=== PATIENT | female | born 1955 ===

== ENCOUNTER 2023-12-04 14:26 | Outpatient (AMB) | payer MEDICARE, MEDICAID, SELFPAY ==
--- NOTE | 2023-12-04 14:28 | MHC.PC.OV ---
Vital Signs 12/04/23 14:30 Height 5 ft 8 in Weight 335 lb 8 oz BMI 51.0 BP 116/72 Blood Pressure Location Lt brachial Position Sitting Pulse 93 Pulse Source Pulse Oximeter Pulse Oximetry (%) 97 Oxygen Delivery Method Room Air Intake Visit Reasons: PE Intake Note: Patient is here today for a physical. 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 Accompanied by: Self / Same As Patient Allergies No Known Allergies Allergy (Verified 12/04/23 14:51) Medication List - Last Reconciled 12/05/23 by Isai Zaragoza MD albuterol sulfate 90 mcg/actuation 2 puffs inhalation Q4-6H PRN blood sugar diagnostic (FreeStyle Lite Strips) As directed once a day blood-glucose meter (FreeStyle Lite Meter kit) As directed bupropion HCl SR 100 mg PO BID clonazepam 0.5 mg PO TID PRN 30 days cyclobenzaprine 10 mg PO TID PRN cyclobenzaprine 10 mg PO TID PRN ergocalciferol (vitamin D2) 1,250 mcg PO QWEEK 90 days escitalopram oxalate 10 mg PO DAILY 90 days flaxseed oil 1,000 mg PO DAILY lancets (FreeStyle Lancets) As directed lisinopril-hydrochlorothiazide 20-12.5 mg 1 tab PO DAILY metformin 1,000 mg PO BID multivitamin 1 tab PO DAILY omeprazole 20 mg PO DAILY Pulmicort Flexhaler 180 mcg/actuation (budesonide) 2 inhalations inhalation BID NS simvastatin 20 mg PO DAILY Tobacco use date assessed: 12/04/23 Fall risk assessment: 2 + Falls in past year Last assessed Fall Risk: 12/04/23 Dental Screening Dental Screen Date: 12/04/23 Did you have a dental visit in the last 12 months?: No Did you have a dental problem in the last 6 months where you did not have access to dental care?: No Was dental information given to patient?: Patient has dentist HPI PE HPI Details Patient comes in today for her annual physical examination - she was last seen here in-person back in 2019 States that she continues to struggle with severe anxiety and agoraphobia, which are the main reasons she has not been coming in for her appointments for so long as these get triggered immediately as soon as she leaves her house States that her lower back feels very sore often lately and that she now has persistent numbness in both of her feet, especially over the bottom of her feet - would like to see if she can get Rx again for Cyclobenzaprine Relates that she has taken Cyclobenzaprine a few years ago for her lower back and it helped a lot back then She denies any headaches or dizziness Denies any chest pains; notes that she does feel SOB often, especially with exertion and that her chest feels somewhat tight often No nausea /vomiting, no abdominal pain No change in bowel habits noted She denies any acute urinary symptoms States that she has never had a screening colonoscopy done, by choice She has also not had her mammogram or Pap smear/ gynecology exam done in years - states that she had a complete hysterectomy in her 30s and was advised them that she no longer needs to continue with yearly Pap smears She would also like to get a prescription for a new glucometer so she can monitor her blood sugar closely [facility] Medical History (Updated 12/05/23 @ 05:52 by Isai Zaragoza MD) Asthma Morbid obesity with BMI of 50.0-59.9, adult Morbid obesity with BMI of 45.0-49.9, adult Depression Panic disorder with agoraphobia Seasonal allergic rhinitis due to pollen Vitamin D deficiency GERD without esophagitis Pure hypercholesterolemia Diabetes mellitus Benign essential hypertension Anxiety Surgical History History of total abdominal hysterectomy Family History Father No problems noted. Mother Stroke Social History Housing: Apartment Alcohol intake: never Patient Tobacco Use Status: Former Tobacco user e-Cigarette/Vaping Use: Never Used Second Hand Smoke Exposure: Yes service: No Current occupational status: retired and disabled Cognitive needs: No Hearing needs: No Vision needs: Yes Female Reproductive History Menstrual Menopause type: surgical (had complete hysterectomy in the ) Questionnaire PHQ-9 Over the last 2 weeks, how often have you been bothered by any of the following problems? 1. Little interest or pleasure in doing things: more than half the days 2. Feeling down, depressed, or hopeless: more than half the days 3. Trouble falling or staying asleep, or sleeping too much: nearly every day 4. Feeling tired or having little energy: nearly every day 5. Poor appetite or overeating: more than half the days 6. Feeling bad about yourself - or that you are a failure or have let yourself or your family down: more than half the days 7. Trouble concentrating on things, such as reading the newspaper or watching television: several days 8. Moving or speaking so slowly that other people could have noticed. Or the opposite - being so fidgety or restless that you have been moving around a lot more than usual: several days 9. Thoughts that you would be better off or of hurting yourself in some way: not at all Total score: 16 Depression Screening Interpretation: Positive Depression Screening Follow-up: Existing condition and In treatment Depression Screening Done: Yes 91147 - PHQ-9 Billing: Yes Source: Developed by Drs. Jose C Cabrera, Abida Truong, Bryan Lyons and colleagues, with an educational jami from [employer]. Thrive Questionnaire Date Thrive assessed: 12/04/23 I am a: Patient What is your living situation today?: I have a steady place to live Within the past 12 months, did the food you bought not last and you didn't have the money to get more?: Never true Within the past 12 months, did you worry whether your food would run out before you got money to buy more?: Never true Do you have trouble paying for medicines?: No Do you have trouble getting transportation to medical appointments?: No Do you have trouble paying your heating and electricity bill?: No Do you have trouble taking care of your child, family member or friend?: No Do you have trouble with day-to-day activities such as bathing, preparing meals, shopping, managing finances, etc.?: No Are you currently unemployed and looking for a job?: No Are you interested in more education?: No Please select the resources that you would like help with: None Currently or been in a relationship where the following occur: No concerns reported THRIVE Score: 0 AUDIT C Alcohol Use Questionnaire (AUDIT-C) 1. How often do you have a drink containing alcohol?: Never 3. How often do you have six or more drinks on one occasion?: Never Total Score: 0 Score Reviewed/Action Taken: Yes BERNIE-7 AMB Questionnaire BERNIE-7 Date BERNIE - 7 assessed: 12/04/23 Feeling nervous, anxious, or on edge: 3 = Nearly every day Not being able to stop or control worryin = More than half the days Worrying too much about different things: 2 = More than half the days Trouble relaxin = More than half the days Being so restless that it is hard to sit still: 2 = More than half the days Becoming easily annoyed or irritable: 1 = Several days Feeling afraid as if something awful might happen: 3 = Nearly every day Total BERNIE-7 score (0-4 normal; 5-9 mild; 10-14 moderate; 15-21 severe): 15 Source: Developed by Drs. Jose C Cabrera, Abida Truong, Bryan Lyons and colleagues, with an educational jami from [employer]. BERNIE-7 Assessment Billing BERNIE-7 Assessment Tool: BERNIE-7 Assessment 88541 Review of Systems Const Denies chills, Reports fatigue, Denies fever(s), Denies headache(s) and Denies malaise Eyes Denies blurry vision, Denies change in vision, Denies irritation and Denies itchy eyes ENT Denies dysphagia, Denies dizziness, Denies otalgia, Denies headache(s), Denies nasal congestion, Denies neck pain, Denies odynophagia, Denies sinus pain and Denies sore throat Card Denies chest pain, Denies rapid heart rate, Denies irregular heart rhythm, Denies palpitations and Reports dyspnea on exertion Resp Denies chest congestion (but chest feels tight often lately), Denies cough, Reports dyspnea on exertion and Denies wheezing GI Denies abdominal pain, Denies bloating, Denies constipation, Denies dysphagia, Denies heartburn, Denies diarrhea, Denies nausea, Denies odynophagia and Denies vomiting Denies hematuria, Denies urinary frequency, Denies dysuria, Denies urinary incontinence and Denies urinary urgency Musc Reports back pain (over the lower back - feels very sore lately), Denies arthralgias, Denies joint swelling, Denies muscle weakness, Denies neck pain and Reports numbness (in both feet) Skin/Breast Denies breast pain, Denies breast mass, Denies change in pigmentation, Denies lesions, Denies rash and Denies unusual bruising Neuro Denies dizziness, Denies headache(s), Reports numbness (in both feet) and Denies paresthesias Psych Reports anxiety (severe, with agoraphobia) and Denies depression Endo Reports fatigue and Denies palpitations Bry/Lymph Denies easy bruising Aller/Immun Denies itchy eyes and Denies wheezing Physical exam (Primary Care) Vital Signs: Last Vital Signs Pulse 93 12/04/23 14:30 BP 116/72 12/04/23 14:30 Pulse Ox 97 12/04/23 14:30 Oxygen Delivery Method Room Air 12/04/23 14:30 BMI result Body Mass Index 51.0 Tobacco/Smoking Status: Tobacco use Status Tobacco use date assessed 12/04/23 12/04/23 14:33 Patient Tobacco Use Status Former Tobacco user 12/04/23 14:29 e-Cigarette/Vaping Use Never Used 12/04/23 14:41 PHQ-9: PHQ-9 Score PHQ-9: Total score 16 12/04/23 19:10 Depression Screening Interpretation: Positive Depression Screening Follow-up: Existing condition and In treatment Thrive Assessment: Date of Thrive Assessment Date Thrive assessed 12/04/23 12/04/23 14:41 Currently or been in a relationship where the following occur: No concerns reported Const General: no acute distress, alert and awake Orientation/consciousness: patient oriented x3 HENMT Head: Yes normocephalic and Yes atraumatic Ears: external ears normal, TM's normal bilaterally and EAC's normal General nose exam: No nasal discharge present Face and sinus: Yes normal facial exam and Yes sinuses nontender Teeth and gingiva: dentition normal Throat: Yes posterior oropharynx normal and Yes tonsils normal (no TP congestion) Eyes Eyelids: Yes eyelids normal Conjunctivae: conjunctivae normal Pupils: Equal, round and reactive pupils present EOM: EOMs intact bilaterally Neck Neck: Yes no lymphadenopathy and Yes supple Thyroid: Thyroid normal Resp Auscultation: no crackles, no rales, rhonchi (occasional) throughout, no wheezes and diminished lung sounds (significantly) bilateral Cardio Rate: regular rate Rhythm: regular rhythm Heart sounds: no murmurs GI Palpation (GI): Soft to palpation, nontender and No hepatosplenomegaly present Auscultation: normal bowel sounds General: Yes no CVA tenderness Back/Spine/Pelvis Back: no CVA tenderness Thoracic/Lumbar Spine: lumbar spinal tenderness (mild) Skin Lesions: no lesions Rashes: no rashes Neuro General: patient oriented x3, moves all extremities, no focal motor deficits and CN's II-XI intact bilaterally Cranial nerves: Yes Equal, round and reactive pupils present Cognition (Neuro): normal cognition Gait exam (Neuro): Normal gait present Extrem General: Yes no clubbing, cyanosis or edema Assessment and Plan Assessment & Plan (1) Annual physical exam: Code(s): Z00.00 - Encounter for general adult medical examination without abnormal findings Plan: Check labs She continues to decline referral for screening colonoscopy but is agreeable to getting a Cologuard test done (2) Benign essential hypertension: Code(s): I10 - Essential (primary) hypertension Plan: Reinforced low sodium diet - goal is systolic BP of at least 130 mm or less Continue Lisinopril-HCT 20-12.5 mg QD Patient is reminded to check/monitor her blood pressure at least once a week (3) Pure hypercholesterolemia: Code(s): E78.00 - Pure hypercholesterolemia, unspecified Plan: Patient has not had any follow up labs done in over 4 years now and is advised to get them done DAVID Reinforced low cholesterol diet Continue Simvastatin 20 mg QD (4) Diabetes mellitus: Code(s): E11.9 - Type 2 diabetes mellitus without complications Qualifiers: Diabetes mellitus type: type 2 Diabetes mellitus care home insulin use: without care home use Diabetes mellitus complication status: without complication Qualified Code(s): E11.9 - Type 2 diabetes mellitus without complications Plan: Reinforced diabetic diet In-office HgbA1c was at 7.0% back in January 2019 - goal is <7.0% Continue Metformin 1000 mg BID Will check HgbA1c again with her labs DAVID - advised that it has been OVER FOUR years now since she had labs done and she should try to get them done DAVID (5) GERD without esophagitis: Code(s): K21.9 - Gastro-esophageal reflux disease without esophagitis Plan: Dietary restrictions reinforced Continue Omeprazole 20 mg QD (6) Vitamin D deficiency: Code(s): E55.9 - Vitamin D deficiency, unspecified Plan: Continue Vitamin D2 61892 units once a week Will recheck vitamin D level for follow up (7) Asthma exacerbation: Code(s): J45.901 - Unspecified asthma with (acute) exacerbation Qualifiers: Asthma severity: moderate Asthma persistence: persistent Qualified Code(s): J45.41 - Moderate persistent asthma with (acute) exacerbation Plan: Continue Albuterol HFA 2 inhalations Q 6 hours PRN Will start her additionally on Pulmicort Flexhaler 18 mcg 2 inhalations BID - have advised patient that this should be used twice a day regularly every day (8) Seasonal allergic rhinitis due to pollen: Code(s): J30.1 - Allergic rhinitis due to pollen Plan: Continue Fluticasone 50 mcg nasal spray QD PRN (9) Low back pain: Code(s): M54.50 - Low back pain, unspecified Qualifiers: Chronicity: unspecified Back pain laterality: bilateral Sciatica presence: without sciatica Qualified Code(s): M54.50 - Low back pain, unspecified Plan: This is likely due to musculoskeletal strain Per request, will start her again on Cyclobenzaprine 5 mg TID PRN Advised that if her low back pain persists or gets worse, will consider sending for lumbar spine x-rays for further evaluation (10) Anxiety: Code(s): F41.9 - Anxiety disorder, unspecified Plan: Continue Bupropion SR 100 mg BID and Clonazepam 0.5 mg BID-TID PRN (11) Panic disorder with agoraphobia: Code(s): F40.01 - Agoraphobia with panic disorder Plan: Continue Clonazepam 0.5 mg 2 to 3 times a day as needed (12) Depression: Code(s): F32.9 - Major depressive disorder, single episode, unspecified Qualifiers: Depression Type: major depressive disorder Major depression recurrence: recurrent Active/Remission status: currently active Major depression episode severity: unspecified Qualified Code(s): F33.9 - Major depressive disorder, recurrent, unspecified Plan: Continue Escitalopram 10 mg QD Follow up with therapist/counselor as scheduled - does her sessions online as her therapist is based out in [facility] (13) Morbid obesity with BMI of 50.0-59.9, adult: Code(s): E66.01 - Morbid (severe) obesity due to excess calories; Z68.43 - Body mass index [BMI] 50.0-59.9, adult Plan: Reinforced diet/exercise as tolerated/lose weight (14) Colon cancer screening: Code(s): Z12.11 - Encounter for screening for malignant neoplasm of colon Plan: Patient continues to decline referral for screening colonoscopy - states that she has never had one done in the past, by choice She agrees to at least do Cologuard testing - ordered (15) Breast cancer screening by mammogram: Code(s): Z12.31 - Encounter for screening mammogram for malignant neoplasm of breast Plan: Patient has not had annual mammogram done in years - will send her to resume annual mammographic screening for breast cancer (16) Osteoporosis screening: Code(s): Z13.820 - Encounter for screening for osteoporosis Plan: States that she has not had BMD done for many years - will send her for repeat BMD for osteoporosis screening Plan Follow up in 4 months Orders: Orders MM screening mammo BI 12/04/23 Z12.31 - Encounter for screening mammogram for malignant neoplasm of breast Complete Blood Count Auto Diff 12/04/23 D64.9 - Anemia, unspecified, Z00.00 - Encounter for general adult medical examination without abnormal findings Lipid Panel 12/04/23 E78.00 - Pure hypercholesterolemia, unspecified, Z00.00 - Encounter for general adult medical examination without abnormal findings TSH reflex Free T4 12/04/23 E78.00 - Pure hypercholesterolemia, unspecified, Z00.00 - Encounter for general adult medical examination without abnormal findings Vitamin B12 and Folate 12/04/23 E53.8 - Deficiency of other specified B group vitamins, Z00.00 - Encounter for general adult medical examination without abnormal findings Vitamin D 25-OH Total 12/04/23 E55.9 - Vitamin D deficiency, unspecified, Z00.00 - Encounter for general adult medical examination without abnormal findings XR DEXA axial skeleton 12/04/23 Z78.0 - Asymptomatic menopausal state AMB Hemoglobin A1c 12/04/23 E11.9 - Type 2 diabetes mellitus without complications Comprehensive False Pass. Panel Fast 12/04/23 E78.00 - Pure hypercholesterolemia, unspecified, Z00.00 - Encounter for general adult medical examination without abnormal findings UA CC w/rflx Micro + Cult 12/04/23 R30.0 - Dysuria, Z00.00 - Encounter for general adult medical examination without abnormal findings Microalbumin, Random (w Creat) 12/04/23 E11.9 - Type 2 diabetes mellitus without complications, Z00.00 - Encounter for general adult medical examination without abnormal findings Hemoglobin A1c 12/04/23 E11.9 - Type 2 diabetes mellitus without complications, Z00.00 - Encounter for general adult medical examination without abnormal findings Referrals Cologuard Test Z12.11 - Encounter for screening for malignant neoplasm of colon Medications: New cyclobenzaprine 10 mg PO TID PRN 30 tabs 1RF muscle spasm Pulmicort Flexhaler 180 mcg/actuation (budesonide) 2 inhalations inhalation BID 1 ea 3RF NS blood-glucose meter (FreeStyle Lite Meter kit) As directed 1 ea 0RF E11.9 - Type 2 diabetes mellitus without complications blood sugar diagnostic (FreeStyle Lite Strips) As directed once a day 100 ea 12RF E11.9 - Type 2 diabetes mellitus without complications lancets (FreeStyle Lancets) As directed 100 ea 12RF Review Patient declined Mammogram: 12/04/23 Declined Pap Smear: 12/04/23 (does not need - had complete hysterectomy in the ) Patient declined Colonoscopy: 12/04/23 Coding Level of Care Code Est Pt Prev Care >65y(23410) Diagnoses Annual physical exam Z00.00 Benign essential hypertension I10 Pure hypercholesterolemia E78.00 Type 2 diabetes mellitus without complication, without long-term current use of insulin E11.9 Diabetes mellitus type: type 2 Diabetes mellitus 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 insulin use: without care home use Diabetes mellitus complication status: without complication GERD without esophagitis K21.9 Vitamin D deficiency E55.9 Moderate persistent asthma with exacerbation J45.41 Asthma severity: moderate Asthma persistence: persistent Seasonal allergic rhinitis due to pollen J30.1 Bilateral low back pain without sciatica, unspecified chronicity M54.50 Chronicity: unspecified Back pain laterality: bilateral Sciatica presence: without sciatica Anxiety F41.9 Panic disorder with agoraphobia F40.01 Episode of recurrent major depressive disorder, unspecified depression episode severity F33.9 Depression Type: major depressive disorder Major depression recurrence: recurrent Active/Remission status: currently active Major depression episode severity: unspecified Morbid obesity with BMI of 50.0-59.9, adult E66.01; Z68.43 Colon cancer screening Z12.11 Breast cancer screening by mammogram Z12.31 Osteoporosis screening Z13.820 Additional Codes BERNIE-7 Assessment Billing - BERNIE-7 Assessment Tool: BERNIE-7 Assessment [id number] ([id number])
[2023-12-04 14:30] VITALS: BP 116/72; PULSE 93; O2SAT 97; BMI 51.0
== END 2023-12-04 15:13 | disposition home or self-care (01) ==
PROVIDERS: PCP Internal Medicine; Visit Provider Internal Medicine
DX: Z00.00 Encounter for general adult medical examination without abnormal findings (principal); I10 Essential (primary) hypertension; E78.00 Pure hypercholesterolemia, unspecified; E11.9 Type 2 diabetes mellitus without complications; K21.9 Gastro-esophageal reflux disease without esophagitis; E55.9 Vitamin D deficiency, unspecified; J45.41 Moderate persistent asthma with (acute) exacerbation; J30.1 Allergic rhinitis due to pollen; M54.50 Low back pain, unspecified; F41.9 Anxiety disorder, unspecified; F40.01 Agoraphobia with panic disorder
CPT/HCPCS: 99397

== ENCOUNTER 2023-12-04 15:26 | Outpatient (REF) | payer MEDICARE, MEDICAID, SELFPAY ==
[2023-12-04 15:48] LABS: MANUAL DIFF FLAG NO
[2023-12-04 15:59] LABS: Basophils Percent Auto 0.5 % (0-2); Eosinophils Absolute Auto 0.2 X10*3/uL (0.0-0.4); Eosinophils Percent Auto 1.7 % (0-4); Hematocrit 40.1 % (37.0-47.0); Hemoglobin 12.5 g/dl (12.0-16.0); Imm Gran Abs Auto 0.04 X10*3/uL (0.00-0.03); Imm Gran Pct Auto 0.5 % (0.0-0.4); Lymphocytes Absolute Auto 1.3 X10*3/uL (1.2-4.9); Lymphocytes Percent Auto 14.5 % (20-40); Mean Corpuscular HGB Conc 31.2 g/dl (31.0-35.0); Mean Corpuscular Hemoglobin 27.2 pg (27.0-33.0); Mean Corpuscular Volume 87.2 fL (80.0-98.0); Monocytes Absolute Auto 0.7 X10*3/uL (0.1-1.2); Monocytes Percent Auto 7.7 % (2-11); Neutrophils Absolute Auto 6.5 x10*3/uL (2.0-8.3); Neutrophils Percent Auto 75.1 % (45-73); Platelet Count 289 X10*3/uL (160-400); Red Cell Distribution Width 15.8 % (11.0-16.0); White Blood Count 8.7 X10*3/uL (4.8-10.8)
[2023-12-04 16:00] LABS: Appearance Urine Turbid; Color Urine Yellow; Glucose Urine UA Negative (Negative); Leukocyte Esterase Urine Negative (Negative); Nitrite Urine Negative (Negative); PH 5.5 (5.0-9.0); Specific Gravity - Urine 1.025 (1.005-1.025); Urine Blood Negative (Negative); Urine Ketones Trace mg/dL (Negative); Urine Protein Negative (Neg-Trace)
[2023-12-04 16:09] LABS: Estimated Average Glucose 160 mg/dL; Hemoglobin A1c % 7.2 % (<6.0)
[2023-12-04 16:26] LABS: Creatinine Urine 237.73 mg/dL; Microalbum/Creatinine Ratio Ur 15.5 ug/mg cr (<30)
[2023-12-04 16:33] LABS: Alanine Aminotransferase 15 U/L (0-31); Albumin Level 3.8 g/dL (3.5-5.0); Alkaline Phosphatase 75 U/L (39-117); Anion Gap 15 (12-20); Aspartate Amino Transferase 13 U/L (5-31); Bilirubin Total 0.3 mg/dL (0.0-1.0); Blood Urea Nitrogen 17 mg/dL (9-16); Carbon Dioxide 29 mmol/L (22-29); Chloride 103 mmol/L (96-108); Cholesterol 149 mg/dL (<200); Estimated Glomerular Filt Rate 46; Glucose Fasting 158 mg/dL (60-99); HDL Cholesterol 42 mg/dL (>40); LDL Cholesterol Calculated 74 mg/dL (<100); Sodium 143 mmol/L (135-145); Triglycerides 166 mg/dL (<150)
[2023-12-04 16:49] LABS: TSH reflex Free T4 1.43 uIU/mL (0.32-4.0)
[2023-12-04 17:02] LABS: Folate 10.2 ng/mL (> or = 4.0); Vitamin B12 204 pg/mL (200-900)
== END 2023-12-04 15:27 | disposition home or self-care (01) ==
LOC: HO.LAB 15:26
PROVIDERS: PCP Internal Medicine; Visit Provider Internal Medicine
DX: Z00.00 Encounter for general adult medical examination without abnormal findings (principal); E78.00 Pure hypercholesterolemia, unspecified; E53.8 Deficiency of other specified B group vitamins; R30.0 Dysuria; E11.9 Type 2 diabetes mellitus without complications; D64.9 Anemia, unspecified; E55.9 Vitamin D deficiency, unspecified
CPT/HCPCS: 36415; 80053; 80061; 81003; 82043; 82306; 82570; 82607; 82746; 83036; 84443; 85025

== ENCOUNTER 2024-01-19 11:57 | Inpatient (IN) | payer MEDICARE, MEDICAID, SELFPAY ==
[2024-01-19] VITALS (8 sets, daily range): BP systolic 117–140; BP diastolic 67–83; PULSE 84–102; RESP 18–26; TEMP 36.6–36.8; O2SAT 88–95; BMI 50.3
--- NOTE | ~2024-01-19 | CT_ITS ---
EXAMINATION: CT angio head neck CLINICAL INFORMATION: Left-sided weakness. COMPARISON: CT scan of the head 01/19/2024. TECHNIQUE: Hat Measurer images were obtained. A CT angiogram of the head and neck was performed in the arterial phase after the intravenous administration of 70 mL Omnipaque 350. Delayed postcontrast images of the head were also obtained. 3D images were processed on an independent workstation under concurrent supervision. Arterial stenoses are measured in accordance with NASCET criteria or similar method if applicable. This CT examination was performed using dose optimization techniques as appropriate, including one or more of the following: Automated exposure control, iterative reconstruction, and adjustment of technique factors (mA and/or kVp) according to patient size (this includes techniques or standardized protocols for targeted exams where dose is matched to indication/reason for exam). Fleischner Society criteria for the followup of incidental pulmonary nodules was implemented if appropriate. Total exam dose-length product 1449 mGy-cm FINDINGS: Head: Delayed postcontrast images reveal no abnormal intracranial mass or enhancement. There is no intracranial mass effect or midline shift. Lateral and third ventricles are normal. No hydrocephalus. Castillo-white matter differentiation is otherwise preserved and there is no evidence of acute territorial infarct. The calvarium and skull base are intact. Mastoid air cells and middle ear cavities are well aerated. No active paranasal sinus disease. CT angiogram neck: This component of the examination is limited due to suboptimal bolus timing and the patient's habitus. The aortic arch apex is unremarkable. The origins of the major aortic vessels and common carotid arteries are obscured. There is a retropharyngeal course of both common carotid arteries. There is a partially calcified atheromatous plaque at the right carotid bifurcation. Cervical carotid arteries are grossly patent. The V1 and proximal V2 segments of the vertebral arteries are obscured. Distal V2 segments and V3 segments of the vertebral arteries are widely patent. CT angiogram head: Intracranial internal carotid arteries are patent. The intradural vertebral artery segments and basilar artery are patent. Anterior, middle, and posterior cerebral artery complexes are normal. No intracranial large vessel occlusion. No identifiable aneurysm or high flow vascular lesion. Other: Soft tissues of the neck including the thyroid gland are normal. Grossly no pathologically enlarged cervical lymph nodes. Lung apices are clear. No acute osseous finding. Specifically no worrisome lytic or blastic osseous lesion. CT/CT angio head neck IMPRESSION: This component of the examination is limited due to suboptimal bolus timing and the patient's habitus. The origins of the major aortic vessels and common carotid arteries are obscured. There is a partially calcified atheromatous plaque at the right carotid bifurcation. Cervical carotid arteries are grossly patent. The V1 and proximal V2 segments of the vertebral arteries are obscured. Distal V2 segments and V3 segments of the vertebral arteries are widely patent. No intracranial large vessel occlusion. No evidence of acute territorial infarct or hemorrhage. No abnormal intracranial mass or enhancement. Electronically signed by: Jose C Mccabe MD 01/19/2024 06:00 PM EDT
--- NOTE | ~2024-01-19 | XR_ITS ---
EXAMINATION: XR CHEST CLINICAL INFORMATION: TIA. COMPARISON: None available. TECHNIQUE: Portable AP view of the chest was obtained. FINDINGS: The study is limited by portable technique, suboptimal inspiration, patient body habitus, and overlying leads. Question subtle left basilar focal infiltrate and/or atelectasis, poorly evaluated on the current study. No effusion or pneumothorax is seen. No focal infiltrate is suspected on the right. The cardiac silhouette is suboptimally evaluated. The aorta is mildly atherosclerotic. XR/XR chest 1V IMPRESSION: Findings as above. Electronically signed by: Bairon Dyson MD 01/19/2024 03:16 PM EDT
--- NOTE | ~2024-01-19 | US_ITS ---
EXAMINATION: US TRIPLEX LOWER EXTREMITY, BILATERAL CLINICAL INFORMATION: Swelling and pain COMPARISON: None available. TECHNIQUE: Color-flow triplex imaging with spectral analysis and compression Doppler were performed on the bilateral lower extremities. FINDINGS: Respiratory variation, normal compression and augmented flow are noted throughout the bilateral lower extremities. The visualized common femoral vein, superficial femoral vein, profunda femoral vein, popliteal vein and posterior tibial venous, left midcalf peroneal vein segments show no evidence of deep venous thrombosis bilaterally. The right peroneal vein is not visualized due to significant calf edema Right peroneal vein not visualized There is no Ruiz's cyst. US/US venous duplex LE BI IMPRESSION: No evidence of deep venous thrombosis involving the bilateral lower extremities. Electronically signed by: Justine Vicente MD 01/19/2024 02:28 PM EDT
--- NOTE | ~2024-01-19 | CT_ITS ---
EXAMINATION: CT HEAD WITHOUT CONTRAST CLINICAL INFORMATION: Transient ischemic attack. COMPARISON: No relevant prior imaging. TECHNIQUE: Contiguous axial imaging was performed from the skull base to vertex without intravenous administration of contrast. This CT examination was performed using dose optimization techniques as appropriate, variously including the following: *Automated exposure control *Adjustment of mA and/or kV according to patient size (this includes techniques or standardized protocols for targeted exams where dose is matched to indication/reason for exam; i.e. extremities or head) *Use of iterative reconstruction technique DLP: 634 mGy-cm FINDINGS: There is no acute intracranial hemorrhage or abnormal extra-axial clicks. No intracranial mass effect or midline shift. Lateral and third ventricles are normal. No hydrocephalus. Castillo-white matter differentiation is preserved and there is no evidence of acute territorial infarct. The calvarium and skull base are intact. Mastoid air cells and middle ear cavities are well aerated. No active paranasal sinus disease. CT/CT head/brain wo IV con IMPRESSION: Normal CT scan of the head. No evidence of acute territorial infarct or hemorrhage. Electronically signed by: Jose C Mccabe MD 01/19/2024 02:34 PM EDT
--- NOTE | 2024-01-19 12:36 | ECG_ITS ---
Test Reason : TIA Blood Pressure : / mmHG Vent. Rate : 095 BPM Atrial Rate : 095 BPM P-R Int : 158 ms QRS Dur : 094 ms QT Int : 368 ms P-R-T Axes : 043 015 017 degrees QTc Int : 462 ms Normal sinus rhythm Nonspecific ST and T wave abnormality Abnormal ECG When compared with ECG of 29-OCT-2005 09:46, Nonspecific T wave abnormality, worse in Inferior leads Nonspecific T wave abnormality now evident in Anterolateral leads Referred By: Jean Bhatia Electronically Signed By:AKANKSHA RIZO
--- NOTE | 2024-01-19 12:37 | ED.GENADULT ---
HPI - General Adult General Chief complaint: General Medical Stated complaint: SOB DAYS 92% RA PER EMS Time Seen by Provider: 01/19/24 12:35 Source: patient and EMS Mode of arrival: EMS Limitations: no limitations History of Present Illness ED Provider: DR. Bhatia HPI narrative: 68-year-old female brought in by ambulance for multiple complaints. Patient normally lives home with her son fairly active and functional at home, around 10:00 patient walked to the bathroom could not feel her left side and fell down because of weakness on the left lower extremity hurting her right knee, patient stated that also her speech was funny this morning, in about 30 minute patient started to feel back to her normal and able to feel her left side, and her speech improved. Also noticed her right lower extremity is swollen and tender, patient has cat scratch on her right leg. Recently patient diagnosed with asthma by her PCP and had some wheezing and difficulty breathing in the morning that she is feeling better now patient declined using supplemental oxygen, no coughing, no fever, no chills. Related Data Home Medications ?Medication ?Instructions ?Recorded ?Confirmed cyclobenzaprine 10 mg tablet 10 mg PO TID PRN muscle spasm 02/26/20 12/04/23 flaxseed oil 1,000 mg capsule 1,000 mg PO DAILY 02/26/20 12/04/23 multivitamin 1 tab PO DAILY 02/26/20 12/04/23 Previous Rx's ?Medication ?Instructions ?Recorded lisinopril 20 1 tab PO DAILY #90 tabs 09/10/23 mg-hydrochlorothiazide 12.5 mg tablet simvastatin 20 mg tablet 20 mg PO DAILY #90 tabs 09/10/23 albuterol sulfate 90 mcg/actuation 2 puff inhalation Q4-6H PRN for 10/15/23 aerosol inhaler dyspnea #8.5 grams Pulmicort Flexhaler 180 2 inh inhalation BID #1 ea 12/04/23 mcg/actuation breath activated (budesonide) blood sugar diagnostic (FreeStyle #100 ea 12/04/23 Lite Strips) blood-glucose meter (FreeStyle #1 ea 12/04/23 Lite Meter kit) cyclobenzaprine 10 mg tablet 10 mg PO TID PRN muscle spasm #30 12/04/23 tabs lancets 28 gauge (FreeStyle #100 ea 12/04/23 Lancets) bupropion HCl 100 mg tablet,12 hr 100 mg PO BID #60 caps 12/06/23 sustained-release ergocalciferol (vitamin D2) 1,250 1,250 mcg PO QWEEK 90 days #13 caps 12/06/23 mcg (50,000 unit) capsule escitalopram oxalate 10 mg tablet 10 mg PO DAILY 90 days #90 tabs 12/06/23 metformin 1,000 mg tablet 1,000 mg PO BID #60 tabs 12/06/23 omeprazole 20 mg capsule,delayed 20 mg PO DAILY #30 caps 12/06/23 release clonazepam 0.5 mg tablet 0.5 mg PO TID PRN anxiety 30 days 01/11/24 #90 tabs Allergies Allergy/AdvReac Type Severity Reaction Status Date / Time No Known Allergies Allergy Verified 01/19/24 12:16 Review of Systems Review of Systems: All other systems are reviewed and are negative Constitutional: Reports as per HPI and Reports no additional constitutional complaints Eyes: Reports as per HPI and Reports no additional eye complaints Reports system reviewed and no additional complaints, except as documented Cardiovascular: Reports as per HPI and Reports no additional cardiovascular complaints Respiratory: Reports as per HPI and Reports no additional respiratory complaints Gastrointestinal: Reports as per HPI and Reports no additional gastrointestinal complaints Genitourinary: Reports no additional female genitourinary complaints Musculoskeletal: Reports no additional musculoskeletal complaints Skin/Breast: Reports system reviewed and no additional complaints, except as docu Psychiatric: Reports no additional psychiatric complaints Endocrine: Reports no additional endocrine complaints Hematologic/Lymphatic: Reports no additional hematologic/lymphatic complaints Allergic/Immunologic: Reports no additional allergic/immunologic complaints Reports system reviewed and no additional complaints, except as documented and Reports Abnormal speech present [facility] Past Medical History Medical History Asthma Morbid obesity with BMI of 50.0-59.9, adult Morbid obesity with BMI of 45.0-49.9, adult Depression Panic disorder with agoraphobia Seasonal allergic rhinitis due to pollen Vitamin D deficiency GERD without esophagitis Pure hypercholesterolemia Diabetes mellitus Benign essential hypertension Anxiety Surgical History History of total abdominal hysterectomy Family History Family History Father No problems noted. Mother Stroke Social History Social History Housing: Apartment Alcohol intake: never Patient Tobacco Use Status: Former Tobacco user e-Cigarette/Vaping Use: Never Used Second Hand Smoke Exposure: Yes Advance Directives: No Advance Directives Information Provided: No service: No Current occupational status: retired and disabled Cognitive needs: No Hearing needs: No Vision needs: Yes Physical Exam ED Vital Signs: Vital Signs - 24 hr 01/19/24 12:10 01/19/24 13:24 01/19/24 14:17 Pulse Rate 102 H 84 Respiratory Rate 26 H 18 Blood Pressure 140/71 H 122/75 Pulse Oximetry 89 L 01/19/24 14:19 Pulse Rate 90 Respiratory Rate Blood Pressure 122/75 Pulse Oximetry BMI result Body Mass Index 50.3 Vital signs have been reviewed and appear to be correct. Blood pressure elevated. Heart rate normal. Respiratory rate normal. Temperature normal. Oxygen saturation normal. Appearance: Alert. Oriented X3. No acute distress. Head: Normal external exam. Normocephalic. Atraumatic. No Stanford signs noted. No raccoon eyes noted Eyes: PERRLA. EOMI. Conjunctiva and sclera normal. Eyelids normal. ENT: TM's Normal. Pharynx normal. Uvula midline. Moist mucous membranes. No trismus noted. No drooling noted. No muffled voice noted. Neck: Normal inspection. Neck supple. FROM. No adenopathy. Thyroid Normal. No meningeal signs. No neck mass noted. CVS: Normal heart rate and rhythm. Heart sound normal. No murmurs noted. Pulses normal throughout. Respiratory: No respiratory distress. Painless inspiration. Breath sounds normal. No wheezes/rales/rhonchi noted. Chest nontender. No accessory muscle usage noted or decreased air movement noted. Abdomen: Soft and nontender. Bowel sounds normal in all 4 quadrants. No distention noted. No organomegaly noted. No visible injury noted. Back: No CVA tenderness. Full range of motion noted. Skin: Skin warm and dry. Normal skin color. Normal skin turgor. No rashes/lesions/lacerations noted. Extremities: No lower extremity edema. Extremities exhibit normal range of motion. Extremities nontender. Neuro: Oriented X 3. Cranial nerve exam: II-XII are grossly intact No motor deficit. No sensory deficit. Reflexes normal. NIH Stroke Scale Time: 12:48 Level of Consciousness: Alert Level of Consciousness Questions: Answers both questions correctly Level of Consciousness Commands: Performs both tasks correctly Best Gaze: Normal Visual: No visual loss Facial Palsy: Normal Motor Arm (Right): No drift Motor Arm (Left): No drift Motor Leg (Right): No drift Motor Leg (Left): No drift Limb Ataxia: Absent Sensory: Normal Best Language: No aphasia Dysarthia: Normal Extinction and Inattention: No abnormality Score: 0 Course Reevaluation(s) Reevaluation #1: 68-year-old female came in with multiple complaints. 1. Left side body weakness has improved possible TIA negative CT and unremarkable head CT with NIH score is 0. 2. Right lower extremity cellulitis / scratch Cat disease will start on Zosyn. 3. Initial hypoxia that improved with 2 L of nasal cannula, bronchodilator, Solu-Medrol. 4. Elevated troponin with no delta change or EKG changed, patient has no chest pain. 5. Lactic acidosis secondary to congestive heart failure /asthma exacerbation and chronic hypoxia, is not due to sepsis. 6. CHF managed with Lasix diuresis and nitro paste. Time: 12:46 Medications Administered Discontinued Medications Generic Name Dose Route Start Last Admin Trade Name Freq PRN Reason Stop Dose Admin Albuterol/Ipratropium 3 ml 01/19/24 13:13 01/19/24 13:24 Albuterol/Iprat 2.5/0.5mg 3 Ml Ampul.Neb INHALE 01/19/24 13:14 3 ml ONCE ONE Administration Furosemide 60 mg 01/19/24 14:04 01/19/24 14:17 Furosemide 100 Mg/10 Ml Vial IVPUSH 01/19/24 14:05 60 mg ONCE ONE Administration Protocol Sodium Chloride 1,000 mls @ 999 mls/hr 01/19/24 12:35 01/19/24 14:23 Ns IV 01/19/24 13:35 Not Given .Q1H1M ONE Piperacillin Sod/Tazobactam 100 mls @ 200 mls/hr 01/19/24 12:40 01/19/24 14:28 Sod 4.5 gm/ Sodium Chloride IV 01/19/24 13:09 200 mls/hr ONCE ONE Administration Methylprednisolone Sodium Succinate 125 mg 01/19/24 12:40 01/19/24 14:13 Methylprednisolone Sod Succ 125 Mg/2 Ml Vial IVPUSH 01/19/24 12:41 125 mg ONCE ONE Administration Nitroglycerin 1 inch 01/19/24 14:04 01/19/24 14:19 Nitroglycerin 2 % Oint 1 Gm Packet TRANSDERMA 01/19/24 14:05 1 inch ONCE ONE Administration Medical Decision Making Differential Diagnosis Differential Diagnoses: The differential diagnosis associated with the presentation includes ( TIA, ischemic stroke, hemorrhagic stroke, DVT of right lower extremity, cellulitis right lower extremity, asthma exacerbation, pneumonia, pneumothorax, CHF, ACS.) Admission/Observation Consideration of admission/observation: Escalation of care including admission/observation considered Consult Healthcare Provider Management of the patient was discussed with: Hospitalist ( Dr. Kyle) Lab Data MDM Lab Attestation statement: I reviewed the patient's lab results. 01/19/24 13:01 01/19/24 13:01 Labs: Lab Results 01/19/24 01/19/24 01/19/24 Range/Units 12:53 13:01 13:02 WBC 9.5 (4.8-10.8) X10*3/uL RBC 4.08 L (4.20-5.50) X10*6/uL Hgb 11.1 L (12.0-16.0) g/dl Hct 36.0 L (37.0-47.0) % MCV 88.2 (80.0-98.0) fL MCH 27.2 (27.0-33.0) pg MCHC 30.8 L (31.0-35.0) g/dl RDW 15.8 (11.0-16.0) % Plt Count 259 (160-400) X10*3/uL MPV 10.8 (9.4-12.3) fL Immature Gran % (Auto) 0.5 H (0.0-0.4) % Neut % (Auto) 82.1 H (45-73) % Lymph % (Auto) 9.5 L (20-40) % Long % (Auto) 6.8 (2-11) % Eos % (Auto) 0.7 (0-4) % Baso % (Auto) 0.4 (0-2) % Lymph # (Auto) 0.9 L (1.2-4.9) X10*3/uL Long # (Auto) 0.6 (0.1-1.2) X10*3/uL Eos # (Auto) 0.1 (0.0-0.4) X10*3/uL Baso # (Auto) 0.0 (0.0-0.2) X10*3/uL Abs Immat Gran (auto) 0.05 H (0.00-0.03) X10*3/uL Absolute Neuts (auto) 7.8 (2.0-8.3) x10*3/uL Absolute Nucleated RBC 0.000 (0.0-0.012) X10*3/uL Nucleated RBC % (auto) 0.0 (0.0-0.2) /100WBC PT 12.8 H (10.9-12.4) SEC INR 1.1 (0.9-1.1) Sodium 141 (135-145) mmol/L Potassium 4.0 (3.3-5.1) mmol/L Chloride 107 (96-108) mmol/L Carbon Dioxide 24 (22-29) mmol/L Anion Gap 14 (12-20) BUN 29 H (9-16) mg/dL Creatinine 1.29 (0.5-1.4) mg/dL Estim Creat Clear Calc 70.9 Estimated GFR 41 Random Glucose 189 H (60-115) mg/dL Lactic Acid 2.4 H* (0.5-2.0) mmol/L Calcium 9.1 D (8.4-10.2) mg/dL Total Bilirubin 0.4 (0.0-1.0) mg/dL Direct Bilirubin 0.2 (0.0-0.5) mg/dL AST 20 (5-31) U/L ALT 28 (0-31) U/L Alkaline Phosphatase 64 (39-117) U/L Troponin I High Sens 189.6 H* (<3.5-17.0) ng/L B-Natriuretic Peptide (<100) pg/mL Total Protein 6.3 L (6.5-8.0) g/dL Albumin 3.5 (3.5-5.0) g/dL Lipase 32 (8-78) U/L Influenza Type A (PCR) NEGATIVE (Negative) Influenza Type B (PCR) NEGATIVE (Negative) RSV RNA Qual (PCR) NEGATIVE (Negative) SARS-CoV-2 RNA (RT-PCR) NEGATIVE (Negative) 01/19/24 01/19/24 Range/Units 13:04 14:28 WBC (4.8-10.8) X10*3/uL RBC (4.20-5.50) X10*6/uL Hgb (12.0-16.0) g/dl Hct (37.0-47.0) % MCV (80.0-98.0) fL MCH (27.0-33.0) pg MCHC (31.0-35.0) g/dl RDW (11.0-16.0) % Plt Count (160-400) X10*3/uL MPV (9.4-12.3) fL Immature Gran % (Auto) (0.0-0.4) % Neut % (Auto) (45-73) % Lymph % (Auto) (20-40) % Long % (Auto) (2-11) % Eos % (Auto) (0-4) % Baso % (Auto) (0-2) % Lymph # (Auto) (1.2-4.9) X10*3/uL Long # (Auto) (0.1-1.2) X10*3/uL Eos # (Auto) (0.0-0.4) X10*3/uL Baso # (Auto) (0.0-0.2) X10*3/uL Abs Immat Gran (auto) (0.00-0.03) X10*3/uL Absolute Neuts (auto) (2.0-8.3) x10*3/uL Absolute Nucleated RBC (0.0-0.012) X10*3/uL Nucleated RBC % (auto) (0.0-0.2) /100WBC PT (10.9-12.4) SEC INR (0.9-1.1) Sodium (135-145) mmol/L Potassium (3.3-5.1) mmol/L Chloride (96-108) mmol/L Carbon Dioxide (22-29) mmol/L Anion Gap (12-20) BUN (9-16) mg/dL Creatinine (0.5-1.4) mg/dL Estim Creat Clear Calc Estimated GFR Random Glucose (60-115) mg/dL Lactic Acid (0.5-2.0) mmol/L Calcium (8.4-10.2) mg/dL Total Bilirubin (0.0-1.0) mg/dL Direct Bilirubin (0.0-0.5) mg/dL AST (5-31) U/L ALT (0-31) U/L Alkaline Phosphatase (39-117) U/L Troponin I High Sens 206.0 H* (<3.5-17.0) ng/L B-Natriuretic Peptide 1608 H (<100) pg/mL Total Protein (6.5-8.0) g/dL Albumin (3.5-5.0) g/dL Lipase (8-78) U/L Influenza Type A (PCR) (Negative) Influenza Type B (PCR) (Negative) RSV RNA Qual (PCR) (Negative) SARS-CoV-2 RNA (RT-PCR) (Negative) Independent Interpretation I performed an independent interpretation of an: Plain X-Ray and CT Scan Radiology Impression Discussion of test interpretation with radiology: I have reviewed the radiologist's reading. Critical Care Time Critical Care Time Critical Care Time: Yes Total Critical Care Time: 60 Attestation: The patient was critically ill with a high probability of imminent or life-threatening deterioration. I spent greater than 30 minutes of discontinuous time evaluating the patient, delivering critical care at the bedside, discussing evaluating data with consultants. Critical care time does not include time spent performing separately billable procedures or teaching. Time spent performing critical care was 60 minutes. Discharge Plan Discharge Clinical Impression: Brain TIA, Asthma exacerbation, Cellulitis of leg, right, CHF (congestive heart failure), Elevated troponin Patient Disposition: Admitted As Inpatient Print Language: Portuguese
[2024-01-19 13:09] LABS: MANUAL DIFF FLAG NO
[2024-01-19 13:16] LABS: Basophils Percent Auto 0.4 % (0-2); Eosinophils Absolute Auto 0.1 X10*3/uL (0.0-0.4); Eosinophils Percent Auto 0.7 % (0-4); Hemoglobin 11.1 g/dl (12.0-16.0); Imm Gran Abs Auto 0.05 X10*3/uL (0.00-0.03); Imm Gran Pct Auto 0.5 % (0.0-0.4); Lymphocytes Absolute Auto 0.9 X10*3/uL (1.2-4.9); Lymphocytes Percent Auto 9.5 % (20-40); Mean Corpuscular HGB Conc 30.8 g/dl (31.0-35.0); Mean Corpuscular Hemoglobin 27.2 pg (27.0-33.0); Mean Corpuscular Volume 88.2 fL (80.0-98.0); Mean Platelet Volume 10.8 fL (9.4-12.3); Monocytes Absolute Auto 0.6 X10*3/uL (0.1-1.2); Monocytes Percent Auto 6.8 % (2-11); Neutrophils Absolute Auto 7.8 x10*3/uL (2.0-8.3); Neutrophils Percent Auto 82.1 % (45-73); Platelet Count 259 X10*3/uL (160-400); Red Blood Count 4.08 X10*6/uL (4.20-5.50); Red Cell Distribution Width 15.8 % (11.0-16.0); White Blood Count 9.5 X10*3/uL (4.8-10.8)
[2024-01-19] MEDS: Albuterol/Iprat 2.5/0.5MG 3 ML AMPUL.NEB INHALE (13:24)
[2024-01-19 13:25] LABS: INTERNATIONAL NORM RATIO 1.1 (0.9-1.1); Prothrombin Time 12.8 SEC (10.9-12.4)
[2024-01-19 13:27] LABS: Lactic Acid 2.4 mmol/L (0.5-2.0)
[2024-01-19 13:30] LABS: Alanine Aminotransferase 28 U/L (0-31); Albumin Level 3.5 g/dL (3.5-5.0); Alkaline Phosphatase 64 U/L (39-117); Anion Gap 14 (12-20); Aspartate Amino Transferase 20 U/L (5-31); Bilirubin Direct 0.2 mg/dL (0.0-0.5); Bilirubin Total 0.4 mg/dL (0.0-1.0); Blood Urea Nitrogen 29 mg/dL (9-16); Calcium 9.1 mg/dL (8.4-10.2); Carbon Dioxide 24 mmol/L (22-29); Chloride 107 mmol/L (96-108); Creatinine Clr Calc Pharmacy 70.9; Estimated Glomerular Filt Rate 41; Glucose Random 189 mg/dL (60-115); Lipase 32 U/L (8-78); Sodium 141 mmol/L (135-145); Total Protein 6.3 g/dL (6.5-8.0)
[2024-01-19 13:36] LABS: B Type Natriuretic Peptide 1608 pg/mL (<100)
[2024-01-19 13:47] LABS: Influenza A PCR NEGATIVE (Negative); Influenza B PCR NEGATIVE (Negative); Resp Syncy Virus RNA Qual PCR NEGATIVE (Negative); SARS COV2 PCR INHOUSE NEGATIVE (Negative)
[2024-01-19 13:48] LABS: Troponin-I High Sensitivity 189.6 ng/L (<3.5-17.0)
[2024-01-19] MEDS: methylPREDNISolone Sod Succ 125 MG/2 ML VIAL IVPUSH (14:13)
[2024-01-19] MEDS: Furosemide 100 MG/10 ML VIAL 60 MG IVPUSH (14:17)
[2024-01-19] MEDS: Nitroglycerin 2 % Oint 1 GM Packet 1 INCH TRANSDERMA (14:19)
[2024-01-19] MEDS: Piperacillin Sodium/Tazobactam 4.5 GM in 0.9 % Sodium Chloride 100 ML IV (14:28)
[2024-01-19 15:08] LABS: Reflex Lactate? Lactic Acid Added
[2024-01-19 15:42] LABS: ~Lactic Acid-LAB USE ONLY 4.1 mmol/L (0.5-2.0)
--- NOTE | 2024-01-19 16:40 | W.MHC.F2F ---
Service Date Service Date: 01/19/24 Reasons for Services Homebound: Leaving the home is medically contraindicated at this time without the asist of a device and/or another person due th the listed conditions above and below. Certification: Based on the above findings, I certify that this patient is confined to the home and needs intermittent shelter care, physical therapy and/or speech therapy, or continues to need occupational therapy. The patient is under my care, and I have initiated the establishment of the plan of care. The patient will be followed by a physician who will periodically review the plan of care. Time Spent With Patient Time: Total time managing care of this patient today ____ minutes.
--- NOTE | 2024-01-19 16:51 | P.HPHOSP_ITS ---
History of Present Illness Date of Service: 01/19/24 Chief Complaint: Left-sided weakness 68-year-old female patient of Dr. Zaragoza with past medical history significant for diabetes mellitus, hyperlipidemia, hypertension, depression/anxiety recently diagnosed to have asthma presented to [facility] with left-sided weakness as per patient she woke up at 10 a.m. feeling left-sided weakness had difficulty walking to the bathroom and fell onto the toilet seat, son helped her back to bed , patient also felt that words were sounding different but had no word- finding difficulty, or aphasia and subsequently brought her to ED for evaluation In the emergency room patient denies any headache, no dizziness complained of shortness of breath on and off since November after her dad which was a traumatic event for patient she was seen by her PCP and was diagnosed to have asthma placed on Pulmicort and rescue inhaler , denies recent weight gain, has lost 25 lb, not on home oxygen, c/o shortness of breath with activity get better with rest, denies associated chest pain, no cough she also complained of right lower extremity swelling of several weeks noticed multiple scratching by cat , denies associated fevers, no chills, denies history of smoking, no alcohol use, denies urinary symptoms of urgency frequency workup in the emergency room showed chest x-ray with no acute abnormality showed question subtle left basilar focal infiltrate and or atelectasis , CT head showed no acute abnormality, bilateral lower extremity Doppler study showed no DVT, troponin 189 repeat 2 6, lactic acid 2.4, normal electrolytes and renal function, blood sugar 189, BNP 1608 blood cultures x2 are pending, patient treated in the emergency room with IV Solu Medrol, IV Zosyn, Augmentin, IV Lasix 60 mg, and nitro paste once patient is now being admitted to [facility] due to left-sided weakness, right lower extremity cellulitis elevated BNP for further cardiac and neurological workup and IV antibiotics. Review of Systems 2 Review of Systems: General no headache no dizziness, no fever chills, feels exhausted. CVS no chest pain, no palpitation. Respiratory no cough , shortness of breath times several weeks Gastrointestinal no nausea, no vomiting, no abdominal pain Musculoskeletal right lower extremity swelling and redness Skin no rash Neuro left-sided weakness left upper extremity greater than lower extremity All other system reviewed and are negative [facility] Medical History Asthma Morbid obesity with BMI of 50.0-59.9, adult Morbid obesity with BMI of 45.0-49.9, adult Depression Panic disorder with agoraphobia Seasonal allergic rhinitis due to pollen Vitamin D deficiency GERD without esophagitis Pure hypercholesterolemia Diabetes mellitus Benign essential hypertension Anxiety Family History Father No problems noted. Mother Stroke Surgical History History of total abdominal hysterectomy Social History Housing: Apartment Alcohol intake: never Patient Tobacco Use Status: Former Tobacco user Smoked in Last 30 Days: No e-Cigarette/Vaping Use: Never Used Second Hand Smoke Exposure: Yes Use of substances other than those prescribed or required for medical reasons: No Advance Directives: No Advance Directives Information Provided: No Do you have a plan to hurt others: No Plan service: No Current occupational status: retired and disabled Cognitive needs: No Hearing needs: No Vision needs: Yes Meds Allergies Allergy/AdvReac Type Severity Reaction Status Date / Time No Known Allergies Allergy Verified 01/19/24 12:16 Active Medications: Current Medications Acetaminophen (Acetaminophen 325 Mg Tablet) 650 mg PO Q6H PRN PRN Reason: Pain, Mild (Pain Scale 1-3), fever or headache Aspirin (Aspirin Enteric Coated 325 Mg Tablet.Dr) 325 mg PO ONCE ONE Stop: 01/19/24 16:48 Atorvastatin Calcium (Atorvastatin Calcium 80 Mg Tablet) 80 mg PO DAILY HERNANDO Benzonatate (Benzonatate 100 Mg Capsule) 100 mg PO TID PRN PRN Reason: Cough Calcium Carbonate (Calcium Carbonate 750 Mg Tab.Chew) 750 mg PO Q4H PRN PRN Reason: Heartburn Enoxaparin Sodium (Enoxaparin Sodium 40 Mg/0.4 Ml Syringe) 40 mg SUBCUT Q24H HERNANDO Magnesium Hydroxide (Milk Of Magnesia 30 Ml Oral.Susp) 30 ml PO DAILY PRN PRN Reason: Constipation Melatonin (Melatonin 3 Mg Tablet) 6 mg PO BEDTIME PRN PRN Reason: Insomnia Ondansetron HCl (Ondansetron Hcl 4 Mg/2 Ml Vial) 4 mg IVPUSH Q8H PRN PRN Reason: Nausea and Vomiting Polyethylene Glycol (Polyethylene Glycol 3350 17 Gm Powd.Pack) 17 gm PO DAILY PRN PRN Reason: Constipation Sodium Chloride (0.9 % Sodium Chloride Flush 3 Ml Syringe) 3 ml IVFLUSH QSHIFT [facility] Home Medications ?Medication ?Instructions ?Recorded ?Confirmed ?Last Taken ?Type multivitamin 1 tab PO DAILY 02/26/20 01/19/24 01/19/24 09:00 History albuterol sulfate 90 mcg/actuation 2 puff inhalation Q6H PRN for 01/19/24 01/19/24 Unknown History aerosol inhaler dyspnea ergocalciferol (vitamin D2) 1,250 1,250 mcg PO GARDNER@0901/19/24 01/19/24 01/19/24 09:00 History mcg (50,000 unit) capsule omeprazole 20 mg capsule,delayed 20 mg PO DAILY@0630 01/19/24 01/19/24 01/19/24 09:00 History release simvastatin 20 mg tablet 20 mg PO BEDTIME 01/19/24 01/19/24 Unknown History Physical Exam 2 Vital Signs and Narrative: Vital Signs: Last Vital Signs Temp 97.9 F 01/19/24 16:24 Pulse 92 01/19/24 16:24 Resp 26 H 01/19/24 16:24 BP 122/70 01/19/24 16:24 Pulse Ox 95 01/19/24 16:24 O2 Del Method Nasal Cannula 01/19/24 16:24 O2 Flow Rate 2 01/19/24 16:24 BMI result Body Mass Index 50.3 Const: Other: General morbidly obese female, awake alert x3 , tachypneic, in no acute distress. Anicteric sclera Neck no JVD. CVS regular rate rhythm, Respiratory lungs clear to auscultation, no respiratory distress, no wheeze, no crackles. Gastrointestinal abdomen obese, non tender, bowel sounds audible, midline scar below umbilicus, no guarding , no rigidity. Extremities right lower extremity pitting edema, erythema, few abrasions, no open wounds Neuro speech clear/horse, face symmetrical, left pronator drift. Skin moist skin under abdominal folds. Psych appropriate affect Results Labs 01/19/24 13:01 01/19/24 13:01 Labs: Laboratory Results - last 24 hr 01/19/24 01/19/24 01/19/24 12:53 13:01 13:02 MCV 88.2 MCH 27.2 MCHC 30.8 L RDW 15.8 Plt Count 259 MPV 10.8 Immature Gran % (Auto) 0.5 H Neut % (Auto) 82.1 H Lymph % (Auto) 9.5 L [place] % (Auto) 6.8 Eos % (Auto) 0.7 Baso % (Auto) 0.4 Lymph # (Auto) 0.9 L [place] # (Auto) 0.6 Eos # (Auto) 0.1 Baso # (Auto) 0.0 Abs Immat Gran (auto) 0.05 H Absolute Neuts (auto) 7.8 Absolute Nucleated RBC 0.000 Nucleated RBC % (auto) 0.0 PT 12.8 H INR 1.1 Anion Gap 14 Estim Creat Clear Calc 70.9 Estimated GFR 41 Random Glucose 189 H Lactic Acid 2.4 H* Lactic Acid F/U @ 2Hr Calcium 9.1 D Total Bilirubin 0.4 Direct Bilirubin 0.2 AST 20 ALT 28 Alkaline Phosphatase 64 Troponin I High Sens 189.6 H* B-Natriuretic Peptide Total Protein 6.3 L Albumin 3.5 Lipase 32 Influenza Type A (PCR) NEGATIVE Influenza Type B (PCR) NEGATIVE RSV RNA Qual (PCR) NEGATIVE SARS-CoV-2 RNA (RT-PCR) NEGATIVE 01/19/24 01/19/24 01/19/24 13:04 14:28 15:22 MCV MCH MCHC RDW Plt Count MPV Immature Gran % (Auto) Neut % (Auto) Lymph % (Auto) [place] % (Auto) Eos % (Auto) Baso % (Auto) Lymph # (Auto) [place] # (Auto) Eos # (Auto) Baso # (Auto) Abs Immat Gran (auto) Absolute Neuts (auto) Absolute Nucleated RBC Nucleated RBC % (auto) PT INR Anion Gap Estim Creat Clear Calc Estimated GFR Random Glucose Lactic Acid Lactic Acid F/U @ 2Hr 4.1 H* Calcium Total Bilirubin Direct Bilirubin AST ALT Alkaline Phosphatase Troponin I High Sens 206.0 H* B-Natriuretic Peptide 1608 H Total Protein Albumin Lipase Influenza Type A (PCR) Influenza Type B (PCR) RSV RNA Qual (PCR) SARS-CoV-2 RNA (RT-PCR) Imaging Radiologist's Impressions: Impressions Chest X-Ray 01/19/24 12:36 IMPRESSION: Findings as above. Electronically signed by: Bairon Dyson MD 01/19/2024 03:16 PM EDT RP Head CT 01/19/24 13:06 IMPRESSION: Normal CT scan of the head. No evidence of acute territorial infarct or hemorrhage. Electronically signed by: Jose C Mccabe MD 01/19/2024 02:34 PM EDT RP Venous Duplex 01/19/24 13:15 IMPRESSION: No evidence of deep venous thrombosis involving the bilateral lower extremities. Electronically signed by: Justine Vicente MD 01/19/2024 02:28 PM EDT RP Assessment and Plan (1) Elevated troponin: Status: Acute (2) Cellulitis of leg, right: Status: Acute (3) Morbid obesity with BMI of 50.0-59.9, adult: Status: Acute (4) Left-sided weakness: Status: Acute Plan 68-year-old female with past medical history significant for morbid obesity, anxiety depression, HLD, diabetes mellitus type 2, hypertension and GERD presented with left-sided weakness, right lower extremity redness swelling of several weeks and shortness of breath of several months duration. Acute left-sided weakness CT head unremarkable, multiple risk factors for stroke Will obtain CTA head and neck Aspirin/Lipitor Recommend blood pressure, cholesterol and blood sugar control Neurology consult Echocardiogram Had recent lipid profile that showed LDL 74 PT/OT Right lower extremity cellulitis Normal WBC, no fevers, no evidence of sepsis IV Ancef/keep leg elevated Shortness of breath Likely due to CHF ,elevated BNP Question takotsubo cardiomyopathy with recent passing away of dad Status post IV Lasix 60 mg in ED follow BNP and BMP and dose Lasix accordingly. Check echocardiogram/i/os Cardiology consult Mild persistent asthma Recently diagnosed by PCP continue home inhalers, no acute exacerbation Elevated troponin 189>206 , no acute EKG changes, no chest pain, follow echo and cardiology consult Acute lactic acidosis not due to sepsis likely due to metformin DM Type [address] on diabetic diet, insulin sliding scale, point of care blood sugar monitoring Hyperlipidemia Lipitor 80 mg Hypertension Soft BP, Hold lisinopril/hydrochlorothiazide Morbid obesity recommend low-calorie diet Mood disorder Continue bupropion 100 mg b.i.d., Klonopin 0.5 mg t.i.d., and Lexapro GERD continue PPI Full code DVT prophylaxis subQ Lovenox In my clinical judgment patient requires 2 night inpatient hospitalization for management of left-sided weakness, right lower extremity cellulitis, elevated BNP expert consultation and further workup. Quality Stroke Does the patient have a stroke diagnosis?: No VTE Prior VTE?: No VTE Risk Level:: Medical - moderate - high VTE Device Contraindication: Treatment Not Indicated VTE Drug Contraindication: N/A - Med Ordered
--- NOTE | 2024-01-19 16:56 | PHA.MEDREC ---
Addendum entered by Ankit Gomes [facility] 01/19/24 17:16: MED REC CHECKED BY [facility] Original Note: Pharmacy Consult ? Medication Reconciliation Pharmacy has completed the medication reconciliation.
[2024-01-19] MEDS: iohexoL 350 MG/ML 100 ML INFUS..BTL IV (17:15)
[2024-01-19 17:24] LABS: Reflex Lactate? 2 Y
[2024-01-19] MEDS: Atorvastatin Calcium 80 MG TABLET PO (17:38)
[2024-01-19] MEDS: Enoxaparin Sodium 40 MG/0.4 ML SYRINGE SUBCUT (17:38)
[2024-01-19] MEDS: Aspirin Enteric Coated 325 MG TABLET.DR PO (17:38)
[2024-01-19] MEDS: Budesonide 180 MCG AER.POW.BA 2 PUFF INHALE (19:07)
[2024-01-19] MEDS: Albuterol Sulfate 90 MCG 8 GM INHALER 2 PUFF INHALE (19:07)
[2024-01-19 19:40] LABS: ~Lactic Acid-LAB USE ONLY 1.3 mmol/L (0.5-2.0)
[2024-01-19 21:24] LABS: Glucose, Whole Blood 230 mg/dL (60-115)
[2024-01-19] MEDS: Insulin Lispro 100 UNIT/ML 3 ML VIAL SUBCUT (22:00)
[2024-01-19] MEDS: clonazePAM 0.5 MG TABLET PO (22:00)
[2024-01-19] MEDS: Melatonin 3 MG TABLET 6 MG PO (23:50)
[2024-01-20] VITALS (9 sets, daily range): BP systolic 109–142; BP diastolic 65–76; PULSE 75–117; RESP 16–20; TEMP 36.1–36.9; O2SAT 91–95; BMI 49.7
[2024-01-20] MEDS: Omeprazole 20 MG CAPSULE.DR PO (06:35)
--- NOTE | 2024-01-20 07:00 | CA_ITS ---
Transthoracic Echocardiogram Patient (Last, First, Middle): Estrella Albright, Gender: Female Date of : 1955 Age: 68 Procedure Date: 01/20/2024 Procedure Type: Transthoracic Echocardiogram Location: [facility] [place] Height: 177. cm Weight: 158.76 kg BSA: 2.64 m2 Heart Rate: 90 bpm BP: 109 / 65 mmHg Dobie Man: KELSIE Referring MD: Riya Kyle MD Symptoms: sob/chf/ef Study Quality: Adequate w contrast ECG Rhythm: Sinus Conclusions: - The left ventricular systolic function is moderately decreased. The calculated ejection fraction is 33% by biplane method. - Evidence suggests grade III (severe) diastolic dysfunction. - The basal inferior and mid inferolateral segments are akinetic. - There is severe septal asymmetric hypertrophy. - There is severe calcification of the aortic valve. Overall, suspect moderate aortic stenosis. - Large plaque is seen in the sino tubular ridge. Findings Procedure Information Contrast agent, definity, is being given per protocol without apparent complications. Left Ventricle Normal left ventricular cavity size. There is moderately increased left ventricular wall thickness. The left ventricular systolic function is moderately decreased. The calculated ejection fraction is 33% by biplane method. Evidence suggests grade III (severe) diastolic dysfunction. There is severe septal asymmetric hypertrophy. Wall Motion Rest Echo Findings The basal inferior and mid inferolateral segments are akinetic. Right Ventricle Moderately increased right ventricular cavity size. There is normal right ventricular systolic function. Atria The left atrium is moderately dilated. The right atrium is normal in size. Aortic Valve There is severe calcification of the aortic valve. LVOT VTI appears elevated and hence increased dimensionless index and calculated valve area. Visually, stenosis appears rather moderate. Overall, suspect moderate aortic stenosis. Mitral Valve There is mild mitral annular calcification. There is mild mitral valve regurgitation. There is no mitral valve stenosis. Pulmonic Valve The pulmonic valve is likely normal. Tricuspid Valve There is mild tricuspid valve regurgitation. There is no evidence of pulmonary hypertension. Great Vessels The asc aorta is normal in size. Large plaque is seen in the sino tubular ridge. Venous The inferior vena cava is dilated and collapses less than 50% with inspiration. Pericardium/Pleural There is no evidence of pericardial effusion. Prior Study Comparison No prior study available for comparison. Measurements 2D Linear Measurements IVSd: 1.61 0.6-0.9/0.6-1.0 cm LVIDd: 4.94 3.9-5.3/4.2-5.9 cm LVIDd Index: 1.87 2.4-3.2/2.2-3.1 cm/m2 LVIDs: 3.93 2.0-3.6 cm LVPWd: 1.39 0.7-1.1 cm LA Diam: 5.40 2.7-3.8/3.0-4.0 cm LAIDs Index: 2.05 1.5-2.3 cm/m2 LV Mass: 395.21 67-162/88-224 g LV Mass Index: 149.70 43-95/49-115 g/m2 LVOT Diam: 2.20 3.0+(-)1.3 cm 2D Systolic Function EF 4C: 32.50 >55% EF 2C: 31.10 >55% EF BiP: 33.10 >55% Mitral Valve MV VTI: 0.29 MV Pk Cornel: 1.39 MV Mn Cornel: 0.84 MV Pk Grad: 8.00 MV Mn Grad: 3.00 MV Pk E: 1.32 MV PK A: 0.45 MV Decel Time: 135.00 E/A: 2.90 E'Lateral: 3.92 E'Medial: 3.37 E/E' Med: 39.20 E/E' Lat: 33.70 PHT: 39.00 MVA PHT: 5.64 MVA Continuity: 3.75 Decel [place]: 9.78 MR Vol - PW Dopp: 5.96 MR VTI: 1.49 MR ERO: 4.00 MR Alias Cornel: 0.37 MR RAD: 0.30 Aortic Valve AoV Pk Cornel: 3.06 AoV Mn Cornel: 2.29 AoV VTI: 0.63 AoV Pk Grad: 37.00 Aov Mn Grad: 23.00 MERVIN Cont.VTI: 1.70 LVOT LVOT Pk Cornel: 1.50 LVOT Mn Cornel: 1.04 LVOT VTI: 0.28 LVOT Pk Grad: 9.00 LVOT Mn Grad: 5.00 LVOT Diam: 2.20 LVOT Area: 3.80 Diastolic Function MV Pk E: 1.32 MV Pk A: 0.45 E/A: 2.90 E'Medial: 3.37 E/E' Med: 39.20 E' Laterial: 3.92 E/E' Lat: 33.70 Right Ventricle TAPSE (mm): 27.00 TVS' Cornel: 10.60 Tricuspid Valve TR Pk Cornel: 1.90 TR Pk Grad: 14.00 RA Press: 15.00 RVSP: 29.00 Great Vessels Aorta Sinus of Valsalva: 3.20 2.0-3.5 cm Ao Asc: 3.60 2.1-3.4 cm Pulmonary Valve PV Pk Cornel: 1.07 Peak PV Grad: 5.00 Updated in Other Vendor System with Status of Final Florencio Lima MD electronically signed on 01/20/2024 12:33:02 PM with status of Final
[2024-01-20 07:05] LABS: Hematocrit 37.7 % (37.0-47.0); Hemoglobin 11.5 g/dl (12.0-16.0); Mean Corpuscular HGB Conc 30.5 g/dl (31.0-35.0); Mean Corpuscular Hemoglobin 26.2 pg (27.0-33.0); Mean Corpuscular Volume 85.9 fL (80.0-98.0); Mean Platelet Volume 10.9 fL (9.4-12.3); Platelet Count 313 X10*3/uL (160-400); Red Blood Count 4.39 X10*6/uL (4.20-5.50); Red Cell Distribution Width 15.9 % (11.0-16.0); White Blood Count 11.7 X10*3/uL (4.8-10.8)
[2024-01-20 07:36] LABS: Glucose, Whole Blood 130 mg/dL (60-115)
[2024-01-20 07:36] LABS: Anion Gap 17 (12-20); Blood Urea Nitrogen 27 mg/dL (9-16); Calcium 9.6 mg/dL (8.4-10.2); Carbon Dioxide 28 mmol/L (22-29); Chloride 104 mmol/L (96-108); Creatinine Clr Calc Pharmacy 69.8; Estimated Glomerular Filt Rate 41; Glucose Random 139 mg/dL (60-115); Potassium 3.7 mmol/L (3.3-5.1); Sodium 145 mmol/L (135-145)
[2024-01-20] MEDS: Budesonide 180 MCG AER.POW.BA 2 PUFF INHALE ×2 (08:05→19:45)
[2024-01-20] MEDS: Aspirin 81 MG TAB.CHEW PO (10:23)
[2024-01-20] MEDS: Escitalopram Oxalate 10 MG TABLET PO (10:23)
[2024-01-20] MEDS: Atorvastatin Calcium 80 MG TABLET PO (10:24)
[2024-01-20] MEDS: buPROPion HCl XL 150 MG TAB.ER.24H PO (10:24)
[2024-01-20] MEDS: 0.9 % Sodium Chloride Flush 3 ML SYRINGE IVFLUSH ×2 (10:31)
[2024-01-20 11:44] LABS: Glucose, Whole Blood 149 mg/dL (60-115)
--- NOTE | 2024-01-20 11:49 | PM.NEUROCN ---
History of Present Illness Data of Consult Service Date: 01/20/24 Primary Care Provider: Isai Zaragoza MD HPI Reason for consult: Numbness 68 years old woman with significant obesity hypertension and diabetes who came with new symptom of left arm or leg numbness and weakness. She got up and noted that she was with the symptoms. He said that there were on and off and today she did not have though symptoms. There was no associated pain or headache. Previously she has noted similar symptoms on right side. When asked when was the 1st time she had some such symptoms, she stated a year ago. Review of Systems Review of Systems: No recent cold or flu-like illness trauma headache or neck pain. [facility] Past Medical History Medical History Asthma Morbid obesity with BMI of 50.0-59.9, adult Morbid obesity with BMI of 45.0-49.9, adult Depression Panic disorder with agoraphobia Seasonal allergic rhinitis due to pollen Vitamin D deficiency GERD without esophagitis Pure hypercholesterolemia Diabetes mellitus Benign essential hypertension Anxiety Family History Family History Father No problems noted. Mother Stroke Surgical History Surgical History History of total abdominal hysterectomy Social History Social History Household Members: Family Housing: House Do you presently have visiting nurse or other home services: No Alcohol intake: never Patient Tobacco Use Status: Former Tobacco user Smoked in Last 30 Days: No e-Cigarette/Vaping Use: Never Used Second Hand Smoke Exposure: Yes Use of substances other than those prescribed or required for medical reasons: No Currently Displaying Signs/Symptoms of Drug Intoxication Withdrawal: No Have you been hit, kicked, punched, or otherwise hurt by someone within the past year? If so, by whom?: No Do you feel safe in your current relationship?: Yes Is there a partner from a previous relationship who is making you feel unsafe now?: No Are you made to feel afraid or neglected: No Advance Directives: No Advance Directives Information Provided: No Do you have a plan to hurt others: No Plan Recently lost weight without trying: No Eating poorly because of decreased appetite: No Nutrition Risks: No Nutritional Risk Patient : No : No Poor oral hygiene: No service: No Current occupational status: retired and disabled Cognitive needs: No Hearing needs: No Vision needs: Yes Meds Allergies Allergy/AdvReac Type Severity Reaction Status Date / Time No Known Allergies Allergy Verified 01/19/24 12:16 Active Medications: Current Medications Acetaminophen (Acetaminophen 325 Mg Tablet) 650 mg PO Q6H PRN PRN Reason: Pain, Mild (Pain Scale 1-3), fever or headache Albuterol Sulfate (Albuterol Sulfate 90 Mcg 8 Gm Inhaler) 2 puff INHALE Q6H PRN PRN Reason: for dyspnea Last Admin: 01/19/24 19:07 Dose: 2 puff Aspirin (Aspirin 81 Mg Tab.Chew) 81 mg PO DAILY [facility] Last Admin: 01/20/24 10:23 Dose: 81 mg Atorvastatin Calcium (Atorvastatin Calcium 80 Mg Tablet) 80 mg PO DAILY [facility] Last Admin: 01/20/24 10:24 Dose: 80 mg Benzonatate (Benzonatate 100 Mg Capsule) 100 mg PO TID PRN PRN Reason: Cough Budesonide (Budesonide 180 Mcg Aer.Pow.Ba) 2 puff INHALE BID [facility] Last Admin: 01/20/24 08:05 Dose: 2 puff Bupropion HCl (Bupropion Hcl Xl 150 Mg Tab.Er.24h) 150 mg PO DAILY [facility] Last Admin: 01/20/24 10:24 Dose: 150 mg Calcium Carbonate (Calcium Carbonate 750 Mg Tab.Chew) 750 mg PO Q4H PRN PRN Reason: Heartburn Clonazepam (Clonazepam 0.5 Mg Tablet) 0.5 mg PO TID PRN PRN Reason: anxiety Last Admin: 01/19/24 22:00 Dose: 0.5 mg Cyclobenzaprine HCl (Cyclobenzaprine Hcl 10 Mg Tablet) 10 mg PO TID PRN PRN Reason: muscle spasm Enoxaparin Sodium (Enoxaparin Sodium 40 Mg/0.4 Ml Syringe) 40 mg SUBCUT Q24H [facility] Last Admin: 01/19/24 17:38 Dose: 40 mg Escitalopram Oxalate (Escitalopram Oxalate 10 Mg Tablet) 10 mg PO DAILY [facility] Last Admin: 01/20/24 10:23 Dose: 10 mg Glucose (Glucose Gel 15 Gm Gel..Gram.) 15 gm PO Q15M PRN; Protocol PRN Reason: per Hypoglycemia Standing Ord. Dextrose (D10) 250 mls @ 750 mls/hr IV Q15M PRN; Protocol PRN Reason: per Hypoglycemia Standing Ord. Doxycycline Hyclate 100 mg/ (Sodium Chloride) 250 mls @ 166.67 mls/hr IV Q12H [facility] Insulin Human Lispro (Insulin Lispro 100 Unit/Ml 3 Ml Vial) 0 unit SUBCUT QIDACHS [facility]; Protocol Last Admin: 01/20/24 08:04 Dose: Not Given Magnesium Hydroxide (Milk Of Magnesia 30 Ml Oral.Susp) 30 ml PO DAILY PRN PRN Reason: Constipation Melatonin (Melatonin 3 Mg Tablet) 6 mg PO BEDTIME PRN PRN Reason: Insomnia Last Admin: 01/19/24 23:50 Dose: 6 mg Omeprazole (Omeprazole 20 Mg Capsule.Dr) 20 mg PO DAILY@629 [facility] Last Admin: 01/20/24 06:35 Dose: 20 mg Ondansetron HCl (Ondansetron Hcl 4 Mg/2 Ml Vial) 4 mg IVPUSH Q8H PRN PRN Reason: Nausea and Vomiting Polyethylene Glycol (Polyethylene Glycol 3350 17 Gm Powd.Pack) 17 gm PO DAILY PRN PRN Reason: Constipation Sodium Chloride (0.9 % Sodium Chloride Flush 3 Ml Syringe) 3 ml IVFLUSH QSHIFT [facility] Last Admin: 01/20/24 10:31 Dose: 3 ml Home Medications ?Medication ?Instructions ?Recorded ?Confirmed ?Last Taken ?Type multivitamin 1 tab PO DAILY 02/26/20 01/19/24 01/19/24 09:00 History albuterol sulfate 90 mcg/actuation 2 puff inhalation Q6H PRN for 01/19/24 01/19/24 Unknown History aerosol inhaler dyspnea ergocalciferol (vitamin D2) 1,250 1,250 mcg PO [place]@89901/19/24 01/19/24 01/19/24 09:00 History mcg (50,000 unit) capsule omeprazole 20 mg capsule,delayed 20 mg PO DAILY@62901/19/24 01/19/24 01/19/24 09:00 History release simvastatin 20 mg tablet 20 mg PO BEDTIME 01/19/24 01/19/24 Unknown History Physical Exam Vital Signs: Vital Signs: Last Vital Signs Temp 98.0 F 01/20/24 11:38 Pulse 85 01/20/24 11:38 Resp 18 01/20/24 11:38 BP 120/74 01/20/24 11:38 Pulse Ox 95 01/20/24 11:38 O2 Del Method Room Air 01/20/24 11:38 O2 Flow Rate 2 01/20/24 07:30 BMI result Body Mass Index 50.3 Neuro: Other: She is alert and awake with normal spontaneity of speech fluency comprehension and affect. Face is symmetrical. Visual carter are full. There is no pronator drift. There is no sensory or visual extinction. Deep tendon reflexes are absent with flexor plantars. Results Labs 01/20/24 06:21 01/20/24 06:21 Labs: Short CBC 01/19/24 01/20/24 Range/Units 13:01 06:21 WBC 9.5 11.7 H (4.8-10.8) X10*3/uL Hgb 11.1 L 11.5 L (12.0-16.0) g/dl Hct 36.0 L 37.7 (37.0-47.0) % Plt Count 259 313 (160-400) X10*3/uL BMP 01/19/24 01/20/24 13:01 06:21 Sodium 141 145 Potassium 4.0 3.7 Chloride 107 104 Carbon Dioxide 24 28 BUN 29 H 27 H Creatinine 1.29 1.31 Calcium 9.1 D 9.6 Liver Function 01/19/24 Range/Units 13:01 Total Bilirubin 0.4 (0.0-1.0) mg/dL Direct Bilirubin 0.2 (0.0-0.5) mg/dL AST 20 (5-31) U/L ALT 28 (0-31) U/L Alkaline Phosphatase 64 (39-117) U/L Albumin 3.5 (3.5-5.0) g/dL Microbiology Microbiology Results: Noncontrast head CT did not reveal any acute abnormality. Mild chronic microvascular ischemic changes especially in left frontal area were noted. CTA was limited but did not reveal any intracranial stenosis. Assessment and Plan (1) Brain TIA: Status: Acute 68 years old woman with obesity hypertension and diabetes probably had microvascular transient ischemic attack. Mainstay of management is sugar control, anti-platelet agent, blood pressure control, and statins. Procedures Date of Service Date of Service: 01/20/24
[2024-01-20] MEDS: LORazepam 2 MG/ML VIAL 1 MG IVPUSH (11:50)
--- NOTE | 2024-01-20 13:43 | MHC.STROKE ---
Met with patient to discuss Stroke/TIA education Pt awake, alert and oriented x 3. No neuro deficits noted Pt sitting up in chair, engaged in conversation. Stroke risk factors/lifestyle changes discussed in detail. Pt open to discussion and very pleasant. Stroke education booklet provided. All questions answered. Will continue to assist as needed.
[2024-01-20 14:07] LABS: Estimated Average Glucose 154 mg/dL
[2024-01-20 14:08] LABS: Cholesterol 109 mg/dL (<200); HDL Cholesterol 41 mg/dL (>40); LDL Cholesterol Calculated 52 mg/dL (<100); Triglycerides 82 mg/dL (<150)
[2024-01-20] MEDS: Doxycycline Hyclate 100 MG in 0.9 % Sodium Chloride 250 ML 166.67 MG IV (14:28)
--- NOTE | 2024-01-20 15:55 | P.PNIM_ITS ---
Subjective Subjective Date of Service: 01/20/24 Interval History: no L-sided weakness RLE swollen but redness improved dyspnea resolved Review of Systems Review of Systems: Yes all other systems are reviewed and are negative Physical Exam 2 Vital Signs: Vital Signs: Last Vital Signs Temp 98.0 F 01/20/24 11:38 Pulse 85 01/20/24 11:38 Resp 18 01/20/24 11:38 BP 120/74 01/20/24 11:38 Pulse Ox 95 01/20/24 11:38 O2 Del Method Room Air 01/20/24 11:38 O2 Flow Rate 2 01/20/24 07:30 BMI result Body Mass Index 50.3 Gen: in no acute distress HEENT: sclera anicteric, moist mucus membranes Neck: supple Lungs: clear to auscultation bilaterally Heart: regular rate and rhythm, no murmurs Abd: soft, non-tender, non-distended, obese Ext: no edema, RLE swollen below knee Skin: warm/well-perfused, R foot with erythema Neuro: alert and oriented x3, no focal findings, no facial droop, no pronator drift Psych: appropriate affect Objective Data Active Medications Acetaminophen (Acetaminophen 325 Mg Tablet) 650 mg PO Q6H PRN PRN Reason: Pain, Mild (Pain Scale 1-3), fever or headache Albuterol Sulfate (Albuterol Sulfate 90 Mcg 8 Gm Inhaler) 2 puff INHALE Q6H PRN PRN Reason: for dyspnea Last Admin: 01/19/24 19:07 Dose: 2 puff Documented By: ANTHONY Aspirin (Aspirin 81 Mg Tab.Chew) 81 mg PO DAILY [facility] Last Admin: 01/20/24 10:23 Dose: 81 mg Documented By: KATHY Atorvastatin Calcium (Atorvastatin Calcium 80 Mg Tablet) 80 mg PO DAILY [facility]CLUD[facility] Last Admin: 01/20/24 10:24 Dose: 80 mg Documented By: KATHY Benzonatate (Benzonatate 100 Mg Capsule) 100 mg PO TID PRN PRN Reason: Cough Budesonide (Budesonide 180 Mcg Aer.Pow.Ba) 2 puff INHALE BID COUNT INCLUDES [facility] Last Admin: 01/20/24 08:05 Dose: 2 puff Documented By: PAUL Bupropion HCl (Bupropion Hcl Xl 150 Mg Tab.Er.24h) 150 mg PO DAILY [facility] Last Admin: 01/20/24 10:24 Dose: 150 mg Documented By: KATHY Calcium Carbonate (Calcium Carbonate 750 Mg Tab.Chew) 750 mg PO Q4H PRN PRN Reason: Heartburn Clonazepam (Clonazepam 0.5 Mg Tablet) 0.5 mg PO TID PRN PRN Reason: anxiety Last Admin: 01/19/24 22:00 Dose: 0.5 mg Documented By: SY Cyclobenzaprine HCl (Cyclobenzaprine Hcl 10 Mg Tablet) 10 mg PO TID PRN PRN Reason: muscle spasm Escitalopram Oxalate (Escitalopram Oxalate 10 Mg Tablet) 10 mg PO DAILY [facility] Last Admin: 01/20/24 10:23 Dose: 10 mg Documented By: KATHY Glucose (Glucose Gel 15 Gm Gel..Gram.) 15 gm PO Q15M PRN; Protocol PRN Reason: per Hypoglycemia Standing Ord. Dextrose (D10) 250 mls @ 750 mls/hr IV Q15M PRN; Protocol PRN Reason: per Hypoglycemia Standing Ord. Doxycycline Hyclate 100 mg/ (Sodium Chloride) 250 mls @ 166.67 mls/hr IV Q12H [facility]CLUD[facility] Last Admin: 01/20/24 14:28 Dose: 166.67 mls/hr Documented By: STEFFI Insulin Human Lispro (Insulin Lispro 100 Unit/Ml 3 Ml Vial) 0 unit SUBCUT QIDACHS [facility]CLUD[facility]; Protocol Last Admin: 01/20/24 11:51 Dose: Not Given Documented By: STEFIF Non-Admin Reason: No Insulin Coverage Magnesium Hydroxide (Milk Of Magnesia 30 Ml Oral.Susp) 30 ml PO DAILY PRN PRN Reason: Constipation Melatonin (Melatonin 3 Mg Tablet) 6 mg PO BEDTIME PRN PRN Reason: Insomnia Last Admin: 01/19/24 23:50 Dose: 6 mg Documented By: SY Omeprazole (Omeprazole 20 Mg Capsule.) 20 mg PO DAILY@0630 [facility]CLUD[facility] Last Admin: 01/20/24 06:35 Dose: 20 mg Documented By: ABHISHEK Ondansetron HCl (Ondansetron Hcl 4 Mg/2 Ml Vial) 4 mg IVPUSH Q8H PRN PRN Reason: Nausea and Vomiting Polyethylene Glycol (Polyethylene Glycol 3350 17 Gm Powd.Pack) 17 gm PO DAILY PRN PRN Reason: Constipation Sodium Chloride (0.9 % Sodium Chloride Flush 3 Ml Syringe) 3 ml IVFLUSH QSHIFT [facility] Last Admin: 01/20/24 10:31 Dose: 3 ml Documented By: KATHY Labs 01/20/24 06:21 01/20/24 06:21 Labs: Laboratory Results - last 24 hr 01/19/24 01/19/24 01/20/24 19:22 21:19 06:21 MCV 85.9 MCH 26.2 L MCHC 30.5 L RDW 15.9 Plt Count 313 MPV 10.9 Absolute Nucleated RBC 0.000 Nucleated RBC % (auto) 0.0 Hold Purple Top SEE NOTE Anion Gap 17 Estim Creat Clear Calc 69.8 Estimated GFR 41 POC Glucose 230 H Random Glucose 139 H Estimat Average Glucose 154 Hemoglobin A1c % 7.0 H Lactic Acid F/U @ 4Hr 1.3 Calcium 9.6 C-Reactive Protein 0.50 Triglycerides 82 Cholesterol 109 LDL Cholesterol, Calc 52 HDL Cholesterol 41 01/20/24 01/20/24 07:27 11:37 MCV MCH MCHC RDW Plt Count MPV Absolute Nucleated RBC Nucleated RBC % (auto) Hold Purple Top Anion Gap Estim Creat Clear Calc Estimated GFR POC Glucose 130 H 149 H Random Glucose Estimat Average Glucose Hemoglobin A1c % Lactic Acid F/U @ 4Hr Calcium C-Reactive Protein Triglycerides Cholesterol LDL Cholesterol, Calc HDL Cholesterol Assessment and Plan (1) CHF (congestive heart failure): Status: Acute Plan d2 68yo F with obesity, anxiety, depression, HLD, DM2, HTN, GERD presenting with L- sided weakness, RLE redness, and progressive dyspnea acute HFrEF ischemic cardiomyopathy - TTE today abnormal, showing: - The left ventricular systolic function is moderately decreased. The calculated ejection fraction is 33% by biplane method. - Evidence suggests grade III (severe) diastolic dysfunction. - The basal inferior and mid inferolateral segments are akinetic. - There is severe septal asymmetric hypertrophy. - There is severe calcification of the aortic valve. Overall, suspect moderate aortic stenosis. - Large plaque is seen in the sino tubular ridge. - per Cardiology will give IV heparin x 48h - got IV furosemide, appears euvolemic now RLE cellulitis - IV cefazolin -> doxycycline acute lactic acidosis - likely due to MTF TIA - Neuro consulted, continue ASA + atorvastatin HTN - held HCTZ/lisinopril for soft BP HLD - statin mood disorder - escitalopram, bupropion, clonazepam mild persistent asthma - continue budesonide, prn albuterol morbid obesity - diet/exercise counseling GERD - PPI DM2 - hold MTF, give isidro-dose lispro VTE ppx - UFH dispo - home with VNA vs STR In my clinical judgment, the patient requires continued inpatient hospitalization for the following reasons: IV heparin Total time managing care of this patient today: 45 minutes. Quality Stroke Does the patient have a stroke diagnosis?: No VTE Prior VTE?: No VTE Risk Level:: Medical - moderate - high VTE Device Contraindication: Treatment Not Indicated VTE Drug Contraindication: N/A - Med Ordered
--- NOTE | 2024-01-20 16:05 | P.CONCA_ITS ---
History of Present Illness History of Present Illness Date of Service: 01/20/24 Chief complaint: Left-Sided weakness/shortness of breath Narrative: This is a cardiology consultation regarding question of congestive heart failure. Patient with many comorbidities including diabetes, hypertension, dyslipidemia, and presented to the hospital with feeling of left-sided weakness, difficulty walking and fell onto a toilet seat. Over the last few months, some shortness of breath and it seems that she was diagnosed as asthma. No clear-cut anginal-type chest pains. She was admitted as possible stroke but CT head was unremarkable. Also this is a question of right lower extremity cellulitis for which she is getting antibiotics. From the cardiac standpoint, she has got an echocardiogram and that shows abnormal findings. However, patient denies any previous cardiac history whatsoever. Review of Systems 2 Review of Systems: Yes all other systems are reviewed and are negative Constitutional: Constitutional: Reports as per HPI and Reports no additional constitutional complaints Eyes: Eyes: Reports as per HPI and Denies no additional eye complaints ENT: Denies system reviewed and no additional complaints, except as documented and Reports as per HPI Cardiovascular: Cardiovascular: Reports as per HPI, Reports no additional cardiovascular complaints, Denies acrocyanosis, Denies cool extremities, Denies chest pain, Denies leg edema, Denies lightheadedness, Denies palpitations and Reports dyspnea Respiratory: Respiratory: Reports as per HPI, Denies no additional respiratory complaints and Reports dyspnea Gastrointestinal: Gastrointestinal: Reports as per HPI and Denies no additional gastrointestinal complaints Genitourinary: Genitourinary: Reports as per HPI Musculoskeletal: Musculoskeletal: Reports no additional musculoskeletal complaints and Reports as per HPI Integumentary/Breasts: Skin/Breast: Reports system reviewed and no additional complaints, except as docu Neurologic: Reports system reviewed and no additional complaints, except as documented and Reports as per HPI Psychiatric: Psychiatric: Reports no additional psychiatric complaints and Reports as per HPI Endocrine: Endocrine: Reports no additional endocrine complaints, Reports as per HPI and Denies palpitations Hematologic/Lymphatic: Hematologic/Lymphatic: Reports no additional hematologic/lymphatic complaints and Reports as per HPI Allergic/Immunologic: Allergic/Immunologic: Reports no additional allergic/immunologic complaints and Reports as per HPI [facility] Past Medical History Medical History Asthma Morbid obesity with BMI of 50.0-59.9, adult Morbid obesity with BMI of 45.0-49.9, adult Depression Panic disorder with agoraphobia Seasonal allergic rhinitis due to pollen Vitamin D deficiency GERD without esophagitis Pure hypercholesterolemia Diabetes mellitus Benign essential hypertension Anxiety Family History Family History Father No problems noted. Mother Stroke Surgical History Surgical History History of total abdominal hysterectomy Social History Social History Household Members: Family Housing: House Do you presently have visiting nurse or other home services: No Alcohol intake: never Patient Tobacco Use Status: Former Tobacco user Smoked in Last 30 Days: No e-Cigarette/Vaping Use: Never Used Second Hand Smoke Exposure: Yes Use of substances other than those prescribed or required for medical reasons: No Currently Displaying Signs/Symptoms of Drug Intoxication Withdrawal: No Have you been hit, kicked, punched, or otherwise hurt by someone within the past year? If so, by whom?: No Do you feel safe in your current relationship?: Yes Is there a partner from a previous relationship who is making you feel unsafe now?: No Are you made to feel afraid or neglected: No Advance Directives: No Advance Directives Information Provided: No Do you have a plan to hurt others: No Plan Recently lost weight without trying: No Eating poorly because of decreased appetite: No Nutrition Risks: No Nutritional Risk Patient : No : No Poor oral hygiene: No service: No Current occupational status: retired and disabled Cognitive needs: No Hearing needs: No Vision needs: Yes Meds Allergies Allergy/AdvReac Type Severity Reaction Status Date / Time No Known Allergies Allergy Verified 01/19/24 12:16 Active Medications: Current Medications Acetaminophen (Acetaminophen 325 Mg Tablet) 650 mg PO Q6H PRN PRN Reason: Pain, Mild (Pain Scale 1-3), fever or headache Albuterol Sulfate (Albuterol Sulfate 90 Mcg 8 Gm Inhaler) 2 puff INHALE Q6H PRN PRN Reason: for dyspnea Last Admin: 01/19/24 19:07 Dose: 2 puff Aspirin (Aspirin 81 Mg Tab.Chew) 81 mg PO DAILY [facility] Last Admin: 01/20/24 10:23 Dose: 81 mg Atorvastatin Calcium (Atorvastatin Calcium 80 Mg Tablet) 80 mg PO DAILY [facility] Last Admin: 01/20/24 10:24 Dose: 80 mg Benzonatate (Benzonatate 100 Mg Capsule) 100 mg PO TID PRN PRN Reason: Cough Budesonide (Budesonide 180 Mcg Aer.Pow.Ba) 2 puff INHALE BID [facility] Last Admin: 01/20/24 08:05 Dose: 2 puff Bupropion HCl (Bupropion Hcl Xl 150 Mg Tab.Er.24h) 150 mg PO DAILY [facility] Last Admin: 01/20/24 10:24 Dose: 150 mg Calcium Carbonate (Calcium Carbonate 750 Mg Tab.Chew) 750 mg PO Q4H PRN PRN Reason: Heartburn Clonazepam (Clonazepam 0.5 Mg Tablet) 0.5 mg PO TID PRN PRN Reason: anxiety Last Admin: 01/19/24 22:00 Dose: 0.5 mg Cyclobenzaprine HCl (Cyclobenzaprine Hcl 10 Mg Tablet) 10 mg PO TID PRN PRN Reason: muscle spasm Escitalopram Oxalate (Escitalopram Oxalate 10 Mg Tablet) 10 mg PO DAILY [facility] Last Admin: 01/20/24 10:23 Dose: 10 mg Glucose (Glucose Gel 15 Gm Gel..Gram.) 15 gm PO Q15M PRN; Protocol PRN Reason: per Hypoglycemia Standing Ord. Heparin Sodium (Porcine) (Heparin Sodium,Porcine 5,000 Unit/Ml Vial) 6,400 unit 40 unit/kg (6400 unit) IVPUSH PROTOCOL BOLUS PRN; Protocol PRN Reason: 40 unit/kg - Heparin Protocol Heparin Sodium (Porcine) (Heparin Sodium,Porcine 5,000 Unit/Ml Vial) 4,000 unit IVPUSH ONCE ONE Stop: 01/20/24 15:54 Heparin Sodium (Porcine) (Heparin Sodium,Porcine 5,000 Unit/Ml Vial) 10,000 unit IVPUSH PROTOCOL BOLUS PRN; Protocol PRN Reason: 80 unit/kg - Heparin Protocol Dextrose (D10) 250 mls @ 750 mls/hr IV Q15M PRN; Protocol PRN Reason: per Hypoglycemia Standing Ord. Doxycycline Hyclate 100 mg/ (Sodium Chloride) 250 mls @ 166.67 mls/hr IV Q12H [facility] Last Admin: 01/20/24 14:28 Dose: 166.67 mls/hr Heparin Sodium/Sodium Chloride (Heparin Sodium,Porcine/1/2ns) 25,000 unit in 250 mls @ 0 mls/hr IVCONT .Q0M [facility]; Protocol Insulin Human Lispro (Insulin Lispro 100 Unit/Ml 3 Ml Vial) 0 unit SUBCUT QIDACHS [facility]; Protocol Last Admin: 01/20/24 11:51 Dose: Not Given Magnesium Hydroxide (Milk Of Magnesia 30 Ml Oral.Susp) 30 ml PO DAILY PRN PRN Reason: Constipation Melatonin (Melatonin 3 Mg Tablet) 6 mg PO BEDTIME PRN PRN Reason: Insomnia Last Admin: 01/19/24 23:50 Dose: 6 mg Omeprazole (Omeprazole 20 Mg Capsule.Dr) 20 mg PO DAILY@629 [facility] Last Admin: 01/20/24 06:35 Dose: 20 mg Ondansetron HCl (Ondansetron Hcl 4 Mg/2 Ml Vial) 4 mg IVPUSH Q8H PRN PRN Reason: Nausea and Vomiting Polyethylene Glycol (Polyethylene Glycol 3350 17 Gm Powd.Pack) 17 gm PO DAILY PRN PRN Reason: Constipation Sodium Chloride (0.9 % Sodium Chloride Flush 3 Ml Syringe) 3 ml IVFLUSH QSHIFT [facility] Last Admin: 01/20/24 10:31 Dose: 3 ml Home Medications ?Medication ?Instructions ?Recorded ?Confirmed ?Last Taken ?Type multivitamin 1 tab PO DAILY 02/26/20 01/19/24 01/19/24 09:00 History albuterol sulfate 90 mcg/actuation 2 puff inhalation Q6H PRN for 01/19/24 01/19/24 Unknown History aerosol inhaler dyspnea ergocalciferol (vitamin D2) 1,250 1,250 mcg PO GARDNER@89901/19/24 01/19/24 01/19/24 09:00 History mcg (50,000 unit) capsule omeprazole 20 mg capsule,delayed 20 mg PO DAILY@62901/19/24 01/19/24 01/19/24 09:00 History release simvastatin 20 mg tablet 20 mg PO BEDTIME 01/19/24 01/19/24 Unknown History Physical Exam 2 Vital Signs: Vital Signs: Last Vital Signs Temp 98.0 F 01/20/24 11:38 Pulse 85 01/20/24 11:38 Resp 18 01/20/24 11:38 BP 120/74 01/20/24 11:38 Pulse Ox 95 01/20/24 11:38 O2 Del Method Room Air 01/20/24 11:38 O2 Flow Rate 2 01/20/24 07:30 BMI result Body Mass Index 50.3 Const: General: comfortable and no acute distress O rientation/consciousness: patient oriented x3 HEENT: Other: Unremarkable Head: Yes normal to inspection Neck: Neck: Yes normal visual inspection Chest: Chest palpation & inspection: normal inspection of the chest Resp: Auscultation: clear to auscultation bilaterally Cardio: Palpation: normal PMI Heart sounds: S1 normal heart sound present, S2 normal heart sound present, no gallops, no murmurs and no rubs GI: Palpation (GI): Soft to palpation Back/Spine/Pelvis: Other: unremarkable Skin: General skin exam: no rashes or lesions noted Neuro: General: patient oriented x3 Extrem: Other: Some swelling in the right lower extremity General: Yes normal to inspection Psych: Mental Status: mental status grossly normal Objective Labs and Meds 01/20/24 06:21 01/20/24 06:21 Lab results: Laboratory Results - last 24 hr 01/19/24 01/19/24 01/20/24 19:22 21:19 06:21 WBC 11.7 H RBC 4.39 Hgb 11.5 L Hct 37.7 MCV 85.9 MCH 26.2 L MCHC 30.5 L RDW 15.9 Plt Count 313 MPV 10.9 Absolute Nucleated RBC 0.000 Nucleated RBC % (auto) 0.0 Hold Purple Top SEE NOTE Sodium 145 Potassium 3.7 Chloride 104 Carbon Dioxide 28 Anion Gap 17 BUN 27 H Creatinine 1.31 Estim Creat Clear Calc 69.8 Estimated GFR 41 POC Glucose 230 H Random Glucose 139 H Estimat Average Glucose 154 Hemoglobin A1c % 7.0 H Lactic Acid F/U @ 4Hr 1.3 Calcium 9.6 C-Reactive Protein 0.50 Triglycerides 82 Cholesterol 109 LDL Cholesterol, Calc 52 HDL Cholesterol 41 01/20/24 01/20/24 07:27 11:37 WBC RBC Hgb Hct MCV MCH MCHC RDW Plt Count MPV Absolute Nucleated RBC Nucleated RBC % (auto) Hold Purple Top Sodium Potassium Chloride Carbon Dioxide Anion Gap BUN Creatinine Estim Creat Clear Calc Estimated GFR POC Glucose 130 H 149 H Random Glucose Estimat Average Glucose Hemoglobin A1c % Lactic Acid F/U @ 4Hr Calcium C-Reactive Protein Triglycerides Cholesterol LDL Cholesterol, Calc HDL Cholesterol ECG Interpretation: EKG with underlying sinus rhythm at 95/Min and no significant ST-T changes; normal FL and corrected QT. Imaging Radiologist's impression: Impressions Head/Neck CTA 01/19/24 17:09 IMPRESSION: This component of the examination is limited due to suboptimal bolus timing and the patient's habitus. The origins of the major aortic vessels and common carotid arteries are obscured. There is a partially calcified atheromatous plaque at the right carotid bifurcation. Cervical carotid arteries are grossly patent. The V1 and proximal V2 segments of the vertebral arteries are obscured. Distal V2 segments and V3 segments of the vertebral arteries are widely patent. No intracranial large vessel occlusion. No evidence of acute territorial infarct or hemorrhage. No abnormal intracranial mass or enhancement. Electronically signed by: Jose C Mccabe MD 01/19/2024 06:00 PM EDT RP Assessment and Plan (1) NSTEMI (non-ST elevated myocardial infarction): Status: Acute (2) Ischemic cardiomyopathy: Status: Acute Plan High sensitivity troponin levels are 189 followed by 206. Cardiac BNP level 1608. In the echocardiogram, LVEF is 33% with severe diastolic dysfunction. Basal inferior/mid inferolateral akinesis. Moderate aortic stenosis. Last plaque in the proximal ascending aorta. Overall, multiple cardiovascular risk factors, question of stroke, elevated troponins, cardiomyopathy with evidence of prior infarct on the echocardiogram. Suspect she has chronic coronary disease and the increase in troponin could be related to acute demand related event. Less likely she had acute plaque rupture but can not rule that out either. If no neurological contraindication, then IV heparin 48 hours. Aspirin, high- dose statins. Will need a diagnostic catheterization. Timing to be decided. Discussed with the patient and she was quite anxious and reassured her as much. Discussed with hospitalist. Procedures Date of Service Date of Service: 01/20/24
[2024-01-20 16:18] LABS: Hematocrit 35.1 % (37.0-47.0); Hemoglobin 10.9 g/dl (12.0-16.0); Mean Corpuscular HGB Conc 31.1 g/dl (31.0-35.0); Mean Corpuscular Hemoglobin 26.8 pg (27.0-33.0); Mean Corpuscular Volume 86.5 fL (80.0-98.0); Mean Platelet Volume 10.7 fL (9.4-12.3); Platelet Count 287 X10*3/uL (160-400); Red Blood Count 4.06 X10*6/uL (4.20-5.50); Red Cell Distribution Width 15.9 % (11.0-16.0); White Blood Count 10.8 X10*3/uL (4.8-10.8)
--- NOTE | 2024-01-20 16:18 | MHC.CM.PN ---
CM ATTEMPTED TO MEET WITH PT WHO WAS WITH A DOCTOR BHAVIN TO REVISIT
[2024-01-20 16:22] LABS: Glucose, Whole Blood 164 mg/dL (60-115)
[2024-01-20 16:28] LABS: INTERNATIONAL NORM RATIO 1.1 (0.9-1.1); Prothrombin Time 13.2 SEC (10.9-12.4)
[2024-01-20 16:31] LABS: PTT Heparin Drip 27.2 SEC (53-77.9)
[2024-01-20] MEDS: Heparin Sodium,Porcine/1/2NS 25,000 UNIT/250 ML IV.SOLN 10 UNIT IVCONT (17:09)
[2024-01-20] MEDS: Insulin Lispro 100 UNIT/ML 3 ML VIAL SUBCUT ×2 (17:11→22:34)
[2024-01-20] MEDS: Heparin Sodium,Porcine 5,000 UNIT/ML VIAL 4000 UNIT IVPUSH (17:11)
[2024-01-20] MEDS: Albuterol Sulfate 90 MCG 8 GM INHALER 2 PUFF INHALE (19:45)
[2024-01-20 20:52] LABS: Glucose, Whole Blood 164 mg/dL (60-115)
[2024-01-20] MEDS: clonazePAM 0.5 MG TABLET PO (22:34)
[2024-01-20] MEDS: Melatonin 3 MG TABLET 6 MG PO (22:35)
[2024-01-21] VITALS (10 sets, daily range): BP systolic 108–144; BP diastolic 60–92; PULSE 72–130; RESP 16–20; TEMP 36.1–36.9; O2SAT 92–96
[2024-01-21 01:10] LABS: PTT Heparin Drip 34.6 SEC (53-77.9)
[2024-01-21] MEDS: Doxycycline Hyclate 100 MG in 0.9 % Sodium Chloride 250 ML 166.67 MG IV ×2 (01:32→14:56)
[2024-01-21] MEDS: Heparin Sodium,Porcine 5,000 UNIT/ML VIAL 10000 UNIT IVPUSH (02:02)
[2024-01-21] MEDS: Omeprazole 20 MG CAPSULE.DR PO (05:04)
[2024-01-21] MEDS: clonazePAM 0.5 MG TABLET PO ×2 (05:04→22:49)
[2024-01-21] MEDS: Acetaminophen 325 MG TABLET 650 MG PO (05:04)
[2024-01-21 07:51] LABS: Glucose, Whole Blood 136 mg/dL (60-115)
[2024-01-21 08:10] LABS: Hematocrit 36.2 % (37.0-47.0); Hemoglobin 11.2 g/dl (12.0-16.0); Mean Corpuscular HGB Conc 30.9 g/dl (31.0-35.0); Mean Corpuscular Hemoglobin 26.7 pg (27.0-33.0); Mean Corpuscular Volume 86.2 fL (80.0-98.0); Platelet Count 284 X10*3/uL (160-400); Red Cell Distribution Width 16.1 % (11.0-16.0)
[2024-01-21] MEDS: Budesonide 180 MCG AER.POW.BA 2 PUFF INHALE ×2 (08:17→20:51)
[2024-01-21 08:21] LABS: INTERNATIONAL NORM RATIO 1.2 (0.9-1.1); Prothrombin Time 13.4 SEC (10.9-12.4)
[2024-01-21 08:24] LABS: PTT Heparin Drip 98.1 SEC (53-77.9)
[2024-01-21 08:27] LABS: Anion Gap 14 (12-20); Blood Urea Nitrogen 28 mg/dL (9-16); Carbon Dioxide 27 mmol/L (22-29); Chloride 108 mmol/L (96-108); Creatinine Clr Calc Pharmacy 80.3; Estimated Glomerular Filt Rate 48; Glucose Random 146 mg/dL (60-115); Magnesium 1.5 mg/dL (1.6-2.6); Potassium 3.6 mmol/L (3.3-5.1); Sodium 145 mmol/L (135-145)
[2024-01-21 08:33] LABS: B Type Natriuretic Peptide 1818 pg/mL (<100)
[2024-01-21] MEDS: Atorvastatin Calcium 80 MG TABLET PO (08:56)
[2024-01-21] MEDS: 0.9 % Sodium Chloride Flush 3 ML SYRINGE IVFLUSH ×2 (08:57→22:50)
[2024-01-21] MEDS: Aspirin 81 MG TAB.CHEW PO (08:57)
[2024-01-21] MEDS: Escitalopram Oxalate 10 MG TABLET PO (08:57)
[2024-01-21] MEDS: buPROPion HCl XL 150 MG TAB.ER.24H PO (08:57)
[2024-01-21 11:34] LABS: Glucose, Whole Blood 158 mg/dL (60-115)
[2024-01-21] MEDS: Insulin Lispro 100 UNIT/ML 3 ML VIAL SUBCUT ×2 (12:24→17:16)
[2024-01-21] MEDS: Furosemide 40 MG/4 ML VIAL IVPUSH ×2 (12:24→17:16)
[2024-01-21] MEDS: Magnesium Sulfate/H2O 2 GM/50 ML PIGGYBACK IV (12:24)
[2024-01-21] MEDS: Heparin Sodium,Porcine/1/2NS 25,000 UNIT/250 ML IV.SOLN 11.56 UNIT IVCONT (12:25)
--- NOTE | 2024-01-21 12:48 | HO.PM.IMPN ---
Subjective Subjective Date of Service: 01/21/24 Interval History: no chest pain dyspnea improved RLE still swollen no focal weakness Review of Systems Review of Systems: Yes all other systems are reviewed and are negative Physical Exam Vital Signs: Vital Signs: Last Vital Signs Temp 97.2 F 01/21/24 11:55 Pulse 130 H 01/21/24 12:22 Resp 20 01/21/24 11:55 BP 120/60 01/21/24 11:55 Pulse Ox 96 01/21/24 12:22 O2 Del Method Room Air 01/21/24 11:55 O2 Flow Rate 2 01/20/24 07:30 BMI result Body Mass Index 49.7 Gen: in no acute distress HEENT: sclera anicteric, moist mucus membranes Neck: supple Lungs: clear to auscultation bilaterally Heart: regular rate and rhythm, no murmurs Abd: soft, non-tender, non-distended, obese Ext: no edema, RLE swollen below knee Skin: warm/well-perfused, R foot with erythema Neuro: alert and oriented x3, no focal findings, no facial droop, no pronator drift Psych: appropriate affect Objective Data Active Medications Acetaminophen (Acetaminophen 325 Mg Tablet) 650 mg PO Q6H PRN PRN Reason: Pain, Mild (Pain Scale 1-3), fever or headache Last Admin: 01/21/24 05:04 Dose: 650 mg Documented By: CHAYITO Albuterol Sulfate (Albuterol Sulfate 90 Mcg 8 Gm Inhaler) 2 puff INHALE Q6H PRN PRN Reason: for dyspnea Last Admin: 01/20/24 19:45 Dose: 2 puff Documented By: ANTHONY Aspirin (Aspirin 81 Mg Tab.Chew) 81 mg PO DAILY [facility] Last Admin: 01/21/24 08:57 Dose: 81 mg Documented By: MICHELLE Atorvastatin Calcium (Atorvastatin Calcium 80 Mg Tablet) 80 mg PO DAILY [facility] Last Admin: 01/21/24 08:56 Dose: 80 mg Documented By: MICHELLE Benzonatate (Benzonatate 100 Mg Capsule) 100 mg PO TID PRN PRN Reason: Cough Budesonide (Budesonide 180 Mcg Aer.Pow.Ba) 2 puff INHALE BID [facility] Last Admin: 01/21/24 08:17 Dose: 2 puff Documented By: JORGE Bupropion HCl (Bupropion Hcl Xl 150 Mg Tab.Er.24h) 150 mg PO DAILY [facility] Last Admin: 01/21/24 08:57 Dose: 150 mg Documented By: MICHELLE Calcium Carbonate (Calcium Carbonate 750 Mg Tab.Chew) 750 mg PO Q4H PRN PRN Reason: Heartburn Clonazepam (Clonazepam 0.5 Mg Tablet) 0.5 mg PO TID PRN PRN Reason: anxiety Last Admin: 01/21/24 05:04 Dose: 0.5 mg Documented By: CHAYITO Cyclobenzaprine HCl (Cyclobenzaprine Hcl 10 Mg Tablet) 10 mg PO TID PRN PRN Reason: muscle spasm Escitalopram Oxalate (Escitalopram Oxalate 10 Mg Tablet) 10 mg PO DAILY [facility] Last Admin: 01/21/24 08:57 Dose: 10 mg Documented By: MICHELLE Furosemide (Furosemide 40 Mg/4 Ml Vial) 40 mg IVPUSH BID@0900,1800 [facility]; Protocol Last Admin: 01/21/24 12:24 Dose: 40 mg Documented By: MICHELLE Glucose (Glucose Gel 15 Gm Gel..Gram.) 15 gm PO Q15M PRN; Protocol PRN Reason: per Hypoglycemia Standing Ord. Heparin Sodium (Porcine) (Heparin Sodium,Porcine 5,000 Unit/Ml Vial) 6,300 unit 40 unit/kg (6300 unit) IVPUSH PROTOCOL BOLUS PRN; Protocol PRN Reason: 40 unit/kg - Heparin Protocol Heparin Sodium (Porcine) (Heparin Sodium,Porcine 5,000 Unit/Ml Vial) 10,000 unit IVPUSH PROTOCOL BOLUS PRN; Protocol PRN Reason: 80 unit/kg - Heparin Protocol Last Admin: 01/21/24 02:02 Dose: 10,000 unit Documented By: CHAYITO Dextrose (D10) 250 mls @ 750 mls/hr IV Q15M PRN; Protocol PRN Reason: per Hypoglycemia Standing Ord. Doxycycline Hyclate 100 mg/ (Sodium Chloride) 250 mls @ 166.67 mls/hr IV Q12H [facility] Last Infusion: 01/21/24 03:32 Dose: Infused Documented By: CHAYITO Heparin Sodium/Sodium Chloride (Heparin Sodium,Porcine/1/2ns) 25,000 unit in 250 mls @ 0 mls/hr IVCONT .Q0M [facility]; Protocol Last Admin: 01/21/24 12:25 Dose: 7.36 units/kg/hr, 11.56 mls/hr Documented By: MICHELLE Co-signed By: ABIDA Insulin Human Lispro (Insulin Lispro 100 Unit/Ml 3 Ml Vial) 0 unit SUBCUT QIDACHS [facility]; Protocol Last Admin: 01/21/24 12:24 Dose: 2 unit Documented By: MICHELLE Magnesium Hydroxide (Milk Of Magnesia 30 Ml Oral.Susp) 30 ml PO DAILY PRN PRN Reason: Constipation Melatonin (Melatonin 3 Mg Tablet) 6 mg PO BEDTIME PRN PRN Reason: Insomnia Last Admin: 01/20/24 22:35 Dose: 6 mg Documented By: SY Omeprazole (Omeprazole 20 Mg Capsule.) 20 mg PO DAILY@0630 [facility] Last Admin: 01/21/24 05:04 Dose: 20 mg Documented By: CHAYITO Ondansetron HCl (Ondansetron Hcl 4 Mg/2 Ml Vial) 4 mg IVPUSH Q8H PRN PRN Reason: Nausea and Vomiting Polyethylene Glycol (Polyethylene Glycol 3350 17 Gm Powd.Pack) 17 gm PO DAILY PRN PRN Reason: Constipation Sodium Chloride (0.9 % Sodium Chloride Flush 3 Ml Syringe) 3 ml IVFLUSH [facility] Last Admin: 01/21/24 08:57 Dose: 3 ml Documented By: MICHELLE Labs 01/21/24 07:43 01/21/24 07:43 Labs: Laboratory Results - last 24 hr 01/20/24 01/20/24 01/20/24 06:21 16:08 16:16 MCV 86.5 MCH 26.8 L MCHC 31.1 RDW 15.9 Plt Count 287 MPV 10.7 Absolute Nucleated RBC 0.000 Nucleated RBC % (auto) 0.0 PT 13.2 H INR 1.1 aPTT Heparin Protocol 27.2 L Anion Gap Estim Creat Clear Calc Estimated GFR POC Glucose 164 H Random Glucose Estimat Average Glucose 154 Hemoglobin A1c % 7.0 H Calcium Magnesium B-Natriuretic Peptide Triglycerides 82 Cholesterol 109 LDL Cholesterol, Calc 52 HDL Cholesterol 41 01/20/24 01/21/24 01/21/24 20:48 00:42 07:37 MCV MCH MCHC RDW Plt Count MPV Absolute Nucleated RBC Nucleated RBC % (auto) PT INR aPTT Heparin Protocol 34.6 L D Anion Gap Estim Creat Clear Calc Estimated GFR POC Glucose 164 H 136 H Random Glucose Estimat Average Glucose Hemoglobin A1c % Calcium Magnesium B-Natriuretic Peptide Triglycerides Cholesterol LDL Cholesterol, Calc HDL Cholesterol 01/21/24 01/21/24 07:43 11:24 MCV 86.2 MCH 26.7 L MCHC 30.9 L RDW 16.1 H Plt Count 284 MPV 11.0 Absolute Nucleated RBC 0.000 Nucleated RBC % (auto) 0.0 PT 13.4 H INR 1.2 H aPTT Heparin Protocol 98.1 H D Anion Gap 14 Estim Creat Clear Calc 80.3 Estimated GFR 48 POC Glucose 158 H Random Glucose 146 H Estimat Average Glucose Hemoglobin A1c % Calcium 9.0 D Magnesium 1.5 L B-Natriuretic Peptide 1818 H Triglycerides Cholesterol LDL Cholesterol, Calc HDL Cholesterol Microbiology Microbiology Results: Microbiology 01/19/24 14:28 Blood Culture - Preliminary Blood - Venous No growth after 24 hours. 01/19/24 14:17 Blood Culture - Preliminary Blood - Venous No growth after 24 hours. Assessment and Plan (1) CHF (congestive heart failure): Status: Acute Plan d3 68yo F with obesity, anxiety, depression, HLD, DM2, HTN, GERD presenting with L-sided weakness, RLE redness, and progressive dyspnea acute HFrEF ischemic cardiomyopathy - TTE 01/19 abnormal, showing: - The left ventricular systolic function is moderately decreased. The calculated ejection fraction is 33% by biplane method. - Evidence suggests grade III (severe) diastolic dysfunction. - The basal inferior and mid inferolateral segments are akinetic. - There is severe septal asymmetric hypertrophy. - There is severe calcification of the aortic valve. Overall, suspect moderate aortic stenosis. - Large plaque is seen in the sino tubular ridge. - per Cardiology will give IV heparin x 48h and will discuss with Interventional Cardiology re: timing of cardiac cath - resume IV furosemide, monitor I/O, BNP, lytes RLE cellulitis - doxycycline 01/19- hypoMg - replete, recheck level in AM acute lactic acidosis - likely due to MTF TIA - Neuro consulted, continue ASA + atorvastatin HTN - held HCTZ/lisinopril for soft BP HLD - statin mood disorder - escitalopram, bupropion, clonazepam mild persistent asthma - continue budesonide, prn albuterol morbid obesity - diet/exercise counseling GERD - PPI DM2 - hold MTF, give isidro-dose lispro VTE ppx - UFH dispo - home with VNA vs [facility] [place] [facility] [place] my clinical judgment, the patient requires continued inpatient hospitalization for the following reasons: IV heparin Total time managing care of this patient today: 45 minutes. Quality Stroke Does the patient have a stroke diagnosis?: No VTE Prior VTE?: No VTE Risk Level:: Medical - moderate - high VTE Device Contraindication: Treatment Not Indicated VTE Drug Contraindication: N/A - Med Ordered
--- NOTE | 2024-01-21 14:46 | MHC.CM.PN ---
IMM 01/20. Pt lives at home with her son who will transport her home at discharge. Pt uses a cane. PT rec STR vs home with services, this CM met with pt to discuss and she is not interested in going to STR and would like to go home. New HCP completed, now on file. DCP: May transfer to [facility] for cardiac cath, vs discharge home and go to [facility] in another week or 2 for the procedure, timing TBD. PCP: Dr. Isai Zaragoza
[2024-01-21 15:09] LABS: Appearance Urine Clear; Color Urine Yellow; Glucose Urine UA Negative (Negative); Leukocyte Esterase Urine Negative (Negative); Nitrite Urine Negative (Negative); Specific Gravity - Urine <= 1.005 (1.005-1.025); Urine Blood Negative (Negative); Urine Ketones Negative (Negative); Urine Protein Negative (Neg-Trace)
[2024-01-21 16:47] LABS: PTT Heparin Drip 40.4 SEC (53-77.9)
[2024-01-21 16:57] LABS: Glucose, Whole Blood 155 mg/dL (60-115)
[2024-01-21] MEDS: Heparin Sodium,Porcine 5,000 UNIT/ML VIAL 6300 UNIT IVPUSH (17:31)
[2024-01-21 22:30] LABS: Glucose, Whole Blood 147 mg/dL (60-115)
[2024-01-21] MEDS: Melatonin 3 MG TABLET 6 MG PO (22:49)
[2024-01-21 23:49] LABS: PTT Heparin Drip 54.6 SEC (53-77.9)
[2024-01-22] VITALS (8 sets, daily range): BP systolic 113–127; BP diastolic 70–80; PULSE 76–88; RESP 16–19; TEMP 36–36.8; O2SAT 92–95
[2024-01-22] MEDS: Doxycycline Hyclate 100 MG in 0.9 % Sodium Chloride 250 ML 166.67 MG IV ×2 (01:34→13:20)
[2024-01-22] MEDS: Omeprazole 20 MG CAPSULE.DR PO (06:16)
[2024-01-22 06:23] LABS: PTT Heparin Drip 69.4 SEC (53-77.9)
[2024-01-22 06:42] LABS: B Type Natriuretic Peptide 2059 pg/mL (<100)
[2024-01-22 06:46] LABS: Anion Gap 14 (12-20); Blood Urea Nitrogen 23 mg/dL (9-16); Calcium 8.9 mg/dL (8.4-10.2); Carbon Dioxide 31 mmol/L (22-29); Chloride 103 mmol/L (96-108); Creatinine Clr Calc Pharmacy 73.8; Estimated Glomerular Filt Rate 44; Glucose Random 128 mg/dL (60-115); Magnesium 1.3 mg/dL (1.6-2.6); Sodium 145 mmol/L (135-145)
[2024-01-22 07:11] LABS: Glucose, Whole Blood 118 mg/dL (60-115)
[2024-01-22] MEDS: Heparin Sodium,Porcine/1/2NS 25,000 UNIT/250 ML IV.SOLN 14.7 UNIT IVCONT (07:11)
[2024-01-22] MEDS: Magnesium Sulfate/H2O 2 GM/50 ML PIGGYBACK IV (07:15)
[2024-01-22] MEDS: Budesonide 180 MCG AER.POW.BA 2 PUFF INHALE ×2 (08:06→19:38)
[2024-01-22] MEDS: Potassium Chloride ER 20 MEQ TAB.ER.PRT 40 MEQ PO (09:23)
[2024-01-22] MEDS: Aspirin 81 MG TAB.CHEW PO (09:24)
[2024-01-22] MEDS: buPROPion HCl XL 150 MG TAB.ER.24H PO (09:24)
[2024-01-22] MEDS: Escitalopram Oxalate 10 MG TABLET PO (09:25)
[2024-01-22] MEDS: Atorvastatin Calcium 80 MG TABLET PO (09:25)
[2024-01-22] MEDS: 0.9 % Sodium Chloride Flush 3 ML SYRINGE IVFLUSH ×2 (09:26→22:23)
[2024-01-22] MEDS: Furosemide 40 MG/4 ML VIAL IVPUSH (09:28)
--- NOTE | 2024-01-22 10:17 | P.PNCA_ITS ---
Subjective Subjective Date of Service: 01/22/24 Interval history: Patient states she feels fine. No chest pain. Shortness of breath is also much better. Overall, she states much improved compared to time of admission. Review of Systems Review of Systems Yes all other systems are reviewed and are negative Constitutional: Reports as per HPI and Reports no additional constitutional complaints Eyes: Reports as per HPI and Denies no additional eye complaints Denies system reviewed and no additional complaints, except as documented and Reports as per HPI Cardiovascular: Reports as per HPI, Reports no additional cardiovascular complaints, Denies acrocyanosis, Denies cool extremities, Denies chest pain, Denies leg edema, Denies lightheadedness, Denies palpitations and Denies dyspnea Respiratory: Reports as per HPI, Denies no additional respiratory complaints and Denies dyspnea Gastrointestinal: Reports as per HPI and Denies no additional gastrointestinal complaints Genitourinary: Reports as per HPI Musculoskeletal: Reports no additional musculoskeletal complaints and Reports as per HPI Skin/Breast: Reports system reviewed and no additional complaints, except as docu Reports system reviewed and no additional complaints, except as documented and Reports as per HPI Psychiatric: Reports no additional psychiatric complaints and Reports as per HPI Endocrine: Reports no additional endocrine complaints, Reports as per HPI and Denies palpitations Hematologic/Lymphatic: Reports no additional hematologic/lymphatic complaints and Reports as per HPI Allergic/Immunologic: Reports no additional allergic/immunologic complaints and Reports as per HPI Physical Exam Vital Signs: Last Vital Signs Temp 98.1 F 01/22/24 07:28 Pulse 76 01/22/24 08:08 Resp 18 01/22/24 08:08 BP 118/74 01/22/24 07:28 Pulse Ox 95 01/22/24 07:28 O2 Del Method Room Air 01/22/24 07:28 O2 Flow Rate 2 01/20/24 07:30 BMI result Body Mass Index 49.7 Const General: comfortable and no acute distress Orientation/consciousness: patient oriented x3 HEENT Other: Unremarkable Head: Yes normal to inspection Neck Neck: Yes normal visual inspection Chest Chest palpation & inspection: normal inspection of the chest Resp Auscultation: clear to auscultation bilaterally Cardio Palpation: normal PMI Heart sounds: S1 normal heart sound present, S2 normal heart sound present, no gallops, no murmurs and no rubs GI Palpation (GI): Soft to palpation Back/Spine/Pelvis Other: unremarkable Skin General skin exam: no rashes or lesions noted Neuro General: patient oriented x3 Extrem Other: Some swelling in the right lower extremity General: Yes normal to inspection Psych Mental Status: mental status grossly normal Objective Labs and Meds 01/21/24 07:43 01/22/24 06:04 Lab results: Laboratory Results - last 24 hr 01/21/24 01/21/24 01/21/24 11:24 14:35 16:16 aPTT Heparin Protocol 40.4 L D Sodium Potassium Chloride Carbon Dioxide Anion Gap BUN Creatinine Estim Creat Clear Calc Estimated GFR POC Glucose 158 H Random Glucose Calcium Magnesium B-Natriuretic Peptide Urine Color Yellow Urine Appearance Clear Urine pH 6.0 Ur Specific [place] <= 1.005 Urine Protein Negative Urine Glucose (UA) Negative Urine Ketones Negative Urine Blood Negative Urine Nitrite Negative Ur Leukocyte Esterase Negative 01/21/24 01/21/24 01/21/24 16:45 22:26 23:34 aPTT Heparin Protocol 54.6 D Sodium Potassium Chloride Carbon Dioxide Anion Gap BUN Creatinine Estim Creat Clear Calc Estimated GFR POC Glucose 155 H 147 H Random Glucose Calcium Magnesium B-Natriuretic Peptide Urine Color Urine Appearance Urine pH Ur Specific [place] Urine Protein Urine Glucose (UA) Urine Ketones Urine Blood Urine Nitrite Ur Leukocyte Esterase 01/22/24 01/22/24 06:04 07:03 aPTT Heparin Protocol 69.4 D Sodium 145 Potassium 3.0 L Chloride 103 Carbon Dioxide 31 H Anion Gap 14 BUN 23 H Creatinine 1.23 Estim Creat Clear Calc 73.8 Estimated GFR 44 POC Glucose 118 H Random Glucose 128 H Calcium 8.9 Magnesium 1.3 L* B-Natriuretic Peptide 2059 H Urine Color Urine Appearance Urine pH Ur Specific [place] Urine Protein Urine Glucose (UA) Urine Ketones Urine Blood Urine Nitrite Ur Leukocyte Esterase Progress Note: A&P Assessment and plan (1) NSTEMI (non-ST elevated myocardial infarction): Status: Acute (2) Ischemic cardiomyopathy: Status: Acute (3) Acute combined systolic and diastolic congestive heart failure: Status: Acute Plan High sensitivity troponin levels are 189 followed by 206. Cardiac BNP level 1608. In the echocardiogram, LVEF is 33% with severe diastolic dysfunction. Basal inferior/mid inferolateral akinesis. Moderate aortic stenosis. Plaque in the proximal ascending aorta. Overall, multiple cardiovascular risk factors, question of stroke, elevated troponins, cardiomyopathy with evidence of prior infarct on the echocardiogram. Suspect she has chronic coronary disease and the increase in troponin could be related to acute demand related event. Less likely she had acute plaque rupture but can not rule that out either. Treated with IV heparin 48 hours. Aspirin and high-dose statins. Discussed with regarding cardiac catheterization. He states that due to recent TIA event, would like avoid immediate catheterization but can do as an outpatient. We discussed with patient and she agrees. Upon discharge, follow up in clinic. Discussed with Dr. Tan. Time Spent With Patient Time: Total time managing care of this patient today ____ minutes. Progress Note: Quality Stroke Does the patient have a stroke diagnosis?: No Procedures Date of Service Date of Service: 01/22/24
--- NOTE | 2024-01-22 10:21 | P.PNIM_ITS ---
Subjective Subjective Date of Service: 01/22/24 Interval History: feels well, RLE swelling improved, no dyspnea, no chest pain Review of Systems Review of Systems: Yes all other systems are reviewed and are negative Physical Exam 2 Vital Signs: Vital Signs: Last Vital Signs Temp 98.1 F 01/22/24 07:28 Pulse 76 01/22/24 08:08 Resp 18 01/22/24 08:08 BP 118/74 01/22/24 07:28 Pulse Ox 95 01/22/24 07:28 O2 Del Method Room Air 01/22/24 07:28 O2 Flow Rate 2 01/20/24 07:30 BMI result Body Mass Index 49.7 Gen: in no acute distress HEENT: sclera anicteric, moist mucus membranes Neck: supple Lungs: clear to auscultation bilaterally Heart: regular rate and rhythm, no murmurs Abd: soft, non-tender, non-distended, obese Ext: no edema, RLE very slightly swollen below knee Skin: warm/well-perfused, R foot with minimal erythema Neuro: alert and oriented x3, no focal findings, no facial droop, no pronator drift Psych: appropriate affect Objective Data Active Medications Acetaminophen (Acetaminophen 325 Mg Tablet) 650 mg PO Q6H PRN PRN Reason: Pain, Mild (Pain Scale 1-3), fever or headache Last Admin: 01/21/24 05:04 Dose: 650 mg Documented By: CHAYITO Albuterol Sulfate (Albuterol Sulfate 90 Mcg 8 Gm Inhaler) 2 puff INHALE Q6H PRN PRN Reason: for dyspnea Last Admin: 01/20/24 19:45 Dose: 2 puff Documented By: ANTHONY Aspirin (Aspirin 81 Mg Tab.Chew) 81 mg PO DAILY [facility] Last Admin: 01/22/24 09:24 Dose: 81 mg Documented By: MICHELLE Atorvastatin Calcium (Atorvastatin Calcium 80 Mg Tablet) 80 mg PO DAILY [facility] Last Admin: 01/22/24 09:25 Dose: 80 mg Documented By: MICHELLE Benzonatate (Benzonatate 100 Mg Capsule) 100 mg PO TID PRN PRN Reason: Cough Budesonide (Budesonide 180 Mcg Aer.Pow.Ba) 2 puff INHALE BID [facility] Last Admin: 01/22/24 08:06 Dose: 2 puff Documented By: HO.RONCARR Bupropion HCl (Bupropion Hcl Xl 150 Mg Tab.Er.24h) 150 mg PO DAILY [facility] Last Admin: 01/22/24 09:24 Dose: 150 mg Documented By: MICHELLE Calcium Carbonate (Calcium Carbonate 750 Mg Tab.Chew) 750 mg PO Q4H PRN PRN Reason: Heartburn Clonazepam (Clonazepam 0.5 Mg Tablet) 0.5 mg PO TID PRN PRN Reason: anxiety Last Admin: 01/21/24 22:49 Dose: 0.5 mg Documented By: SY Cyclobenzaprine HCl (Cyclobenzaprine Hcl 10 Mg Tablet) 10 mg PO TID PRN PRN Reason: muscle spasm Escitalopram Oxalate (Escitalopram Oxalate 10 Mg Tablet) 10 mg PO DAILY [facility] Last Admin: 01/22/24 09:25 Dose: 10 mg Documented By: MICHELLE Furosemide (Furosemide 40 Mg/4 Ml Vial) 40 mg IVPUSH BID@0900,1800 [facility]; Protocol Last Admin: 01/22/24 09:28 Dose: 40 mg Documented By: MICHELLE Glucose (Glucose Gel 15 Gm Gel..Gram.) 15 gm PO Q15M PRN; Protocol PRN Reason: per Hypoglycemia Standing Ord. Heparin Sodium (Porcine) (Heparin Sodium,Porcine 5,000 Unit/Ml Vial) 6,300 unit 40 unit/kg (6300 unit) IVPUSH PROTOCOL BOLUS PRN; Protocol PRN Reason: 40 unit/kg - Heparin Protocol Last Admin: 01/21/24 17:31 Dose: 6,300 unit Documented By: ABIDA Heparin Sodium (Porcine) (Heparin Sodium,Porcine 5,000 Unit/Ml Vial) 10,000 unit IVPUSH PROTOCOL BOLUS PRN; Protocol PRN Reason: 80 unit/kg - Heparin Protocol Last Admin: 01/21/24 02:02 Dose: 10,000 unit Documented By: CHAYITO Dextrose (D10) 250 mls @ 750 mls/hr IV Q15M PRN; Protocol PRN Reason: per Hypoglycemia Standing Ord. Doxycycline Hyclate 100 mg/ (Sodium Chloride) 250 mls @ 166.67 mls/hr IV Q12H [facility] Last Infusion: 01/22/24 03:04 Dose: Infused Documented By: SY Heparin Sodium/Sodium Chloride (Heparin Sodium,Porcine/1/2ns) 25,000 unit in 250 mls @ 0 mls/hr IVCONT .Q0M [facility]; Protocol Last Admin: 01/22/24 07:11 Dose: 9.36 units/kg/hr, 14.7 mls/hr Documented By: SY Co-signed By: MICHELLE Insulin Human Lispro (Insulin Lispro 100 Unit/Ml 3 Ml Vial) 0 unit SUBCUT QIDACHS [facility]; Protocol Last Admin: 01/22/24 08:11 Dose: Not Given Documented By: MICHELLE Non-Admin Reason: No Insulin Coverage Magnesium Hydroxide (Milk Of Magnesia 30 Ml Oral.Susp) 30 ml PO DAILY PRN PRN Reason: Constipation Melatonin (Melatonin 3 Mg Tablet) 6 mg PO BEDTIME PRN PRN Reason: Insomnia Last Admin: 01/21/24 22:49 Dose: 6 mg Documented By: SY Omeprazole (Omeprazole 20 Mg Capsule.Dr) 20 mg PO DAILY@0630 [facility] Last Admin: 01/22/24 06:16 Dose: 20 mg Documented By: SY Ondansetron HCl (Ondansetron Hcl 4 Mg/2 Ml Vial) 4 mg IVPUSH Q8H PRN PRN Reason: Nausea and Vomiting Polyethylene Glycol (Polyethylene Glycol 3350 17 Gm Powd.Pack) 17 gm PO DAILY PRN PRN Reason: Constipation Sodium Chloride (0.9 % Sodium Chloride Flush 3 Ml Syringe) 3 ml IVFLUSH QSHIFT [facility] Last Admin: 01/22/24 09:26 Dose: 3 ml Documented By: MICHELLE Labs 01/21/24 07:43 01/22/24 06:04 Labs: Laboratory Results - last 24 hr 01/21/24 01/21/24 01/21/24 11:24 14:35 16:16 aPTT Heparin Protocol 40.4 L D Anion Gap Estim Creat Clear Calc Estimated GFR POC Glucose 158 H Random Glucose Calcium Magnesium B-Natriuretic Peptide Urine Color Yellow Urine Appearance Clear Urine pH 6.0 Ur Specific [place] <= 1.005 Urine Protein Negative Urine Glucose (UA) Negative Urine Ketones Negative Urine Blood Negative Urine Nitrite Negative Ur Leukocyte Esterase Negative 01/21/24 01/21/24 01/21/24 16:45 22:26 23:34 aPTT Heparin Protocol 54.6 D Anion Gap Estim Creat Clear Calc Estimated GFR POC Glucose 155 H 147 H Random Glucose Calcium Magnesium B-Natriuretic Peptide Urine Color Urine Appearance Urine pH Ur Specific [place] Urine Protein Urine Glucose (UA) Urine Ketones Urine Blood Urine Nitrite Ur Leukocyte Esterase 01/22/24 01/22/24 06:04 07:03 aPTT Heparin Protocol 69.4 D Anion Gap 14 Estim Creat Clear Calc 73.8 Estimated GFR 44 POC Glucose 118 H Random Glucose 128 H Calcium 8.9 Magnesium 1.3 L* B-Natriuretic Peptide 2059 H Urine Color Urine Appearance Urine pH Ur Specific [place] Urine Protein Urine Glucose (UA) Urine Ketones Urine Blood Urine Nitrite Ur Leukocyte Esterase Microbiology Microbiology Results: Microbiology 01/19/24 14:28 Blood Culture - Preliminary Blood - Venous No growth after 48 hours. 01/19/24 14:17 Blood Culture - Preliminary Blood - Venous No growth after 48 hours. Assessment and Plan (1) CHF (congestive heart failure): Status: Acute Plan d4 68yo F with obesity, anxiety, depression, HLD, DM2, HTN, GERD presenting with L- sided weakness, RLE redness, and progressive dyspnea acute HFrEF ischemic cardiomyopathy - TTE 01/19 abnormal, showing: - The left ventricular systolic function is moderately decreased. The calculated ejection fraction is 33% by biplane method. - Evidence suggests grade III (severe) diastolic dysfunction. - The basal inferior and mid inferolateral segments are akinetic. - There is severe septal asymmetric hypertrophy. - There is severe calcification of the aortic valve. Overall, suspect moderate aortic stenosis. - Large plaque is seen in the sino tubular ridge. - per Cardiology complete 48h of IV heparin and will arrange outpt cardiac cath - appears euvolemic; change to PO furosemide hypoK - replete PO; recheck level in AM hypoMg - repleve IV + PO; recheck level in AM RLE cellulitis - doxycycline 01/19- acute lactic acidosis - likely due to MTF TIA - Neuro consulted, continue ASA + atorvastatin HTN - resume lisinopril; also on HCTZ as outpt HLD - statin mood disorder - escitalopram, bupropion, clonazepam mild persistent asthma - continue budesonide, prn albuterol morbid obesity - diet/exercise counseling GERD - PPI DM2 - hold MTF, give isidro-dose lispro VTE ppx - UFH dispo - home with VNA likely tomorrow In my clinical judgment, the patient requires continued inpatient hospitalization for the following reasons: IV heparin, electrolyte replacement Total time managing care of this patient today: 45 minutes. Quality Stroke Does the patient have a stroke diagnosis?: No VTE Prior VTE?: No VTE Risk Level:: Medical - moderate - high VTE Device Contraindication: Treatment Not Indicated VTE Drug Contraindication: N/A - Med Ordered
[2024-01-22 10:56] LABS: Glucose, Whole Blood 191 mg/dL (60-115)
[2024-01-22] MEDS: Insulin Lispro 100 UNIT/ML 3 ML VIAL SUBCUT ×2 (13:20→22:20)
[2024-01-22] MEDS: Magnesium Oxide 400 MG TABLET 800 MG PO ×2 (13:20→16:51)
--- NOTE | 2024-01-22 13:43 | MHC.CM.PN ---
EMR reviewed and per MD rounds, pt is not medically cleared for discharge today due to management of NSTEMI, ischemic cardiomyopathy, and CHF requiring IV heparin gtt. Anticipating pt will be discharged home tomorrow with new VNA services.
[2024-01-22 15:56] LABS: Glucose, Whole Blood 150 mg/dL (60-115)
[2024-01-22] MEDS: Furosemide 40 MG TABLET PO (16:51)
[2024-01-22 21:23] LABS: Glucose, Whole Blood 177 mg/dL (60-115)
[2024-01-22] MEDS: Melatonin 3 MG TABLET 6 MG PO (22:20)
[2024-01-22] MEDS: clonazePAM 0.5 MG TABLET PO (22:20)
[2024-01-23] VITALS: BP 120/65; PULSE 80; RESP 20; TEMP 36.3; O2SAT 93
[2024-01-23] MEDS: Acetaminophen 325 MG TABLET 650 MG PO (02:15)
[2024-01-23] MEDS: Doxycycline Hyclate 100 MG in 0.9 % Sodium Chloride 250 ML 166.67 MG IV (02:17)
[2024-01-23 04:00] VITALS: BP 126/81; PULSE 92; RESP 20; TEMP 36.1; O2SAT 95
[2024-01-23] MEDS: Omeprazole 20 MG CAPSULE.DR PO (06:16)
[2024-01-23 07:01] LABS: Glucose, Whole Blood 145 mg/dL (60-115)
[2024-01-23 07:02] VITALS: BP 102/62; PULSE 84; RESP 18; TEMP 36.7; O2SAT 94
[2024-01-23 07:15] LABS: PTT Heparin Drip 26.2 SEC (53-77.9)
[2024-01-23 07:22] LABS: Anion Gap 13 (12-20); Blood Urea Nitrogen 22 mg/dL (9-16); Calcium 9.1 mg/dL (8.4-10.2); Carbon Dioxide 32 mmol/L (22-29); Chloride 104 mmol/L (96-108); Creatinine Clr Calc Pharmacy 73.8; Estimated Glomerular Filt Rate 44; Glucose Random 159 mg/dL (60-115); Magnesium 1.5 mg/dL (1.6-2.6); Sodium 146 mmol/L (135-145)
[2024-01-23 07:27] LABS: B Type Natriuretic Peptide 1853 pg/mL (<100)
[2024-01-23 08:23] VITALS: PULSE 83; RESP 16; O2SAT 95
[2024-01-23] MEDS: Budesonide 180 MCG AER.POW.BA 2 PUFF INHALE (08:23)
[2024-01-23] MEDS: Magnesium Sulfate/H2O 2 GM/50 ML PIGGYBACK IV (09:25)
[2024-01-23] MEDS: Potassium Chloride ER 20 MEQ TAB.ER.PRT PO (09:26)
[2024-01-23] MEDS: Aspirin 81 MG TAB.CHEW PO (09:27)
[2024-01-23] MEDS: buPROPion HCl XL 150 MG TAB.ER.24H PO (09:27)
[2024-01-23] MEDS: Atorvastatin Calcium 80 MG TABLET PO (09:27)
[2024-01-23] MEDS: Escitalopram Oxalate 10 MG TABLET PO (09:27)
[2024-01-23] MEDS: lisinopriL 5 MG TABLET PO (09:27)
[2024-01-23] MEDS: 0.9 % Sodium Chloride Flush 3 ML SYRINGE IVFLUSH (09:28)
[2024-01-23] MEDS: Furosemide 40 MG TABLET PO (09:30)
[2024-01-23 09:39] VITALS: PULSE 125
--- NOTE | 2024-01-23 09:43 | PM.PNCARD ---
Subjective Subjective Date of Service: 01/23/24 Interval history: She states that she is feeling much better than at the time of admission. Shortness of breath is significantly better. No angina. Otherwise feels well. Review of Systems Review of Systems Yes all other systems are reviewed and are negative Constitutional: Reports as per HPI and Reports no additional constitutional complaints Eyes: Reports as per HPI and Denies no additional eye complaints Denies system reviewed and no additional complaints, except as documented and Reports as per HPI Cardiovascular: Reports as per HPI, Reports no additional cardiovascular complaints, Denies acrocyanosis, Denies cool extremities, Denies chest pain, Denies leg edema, Denies lightheadedness, Denies palpitations and Denies dyspnea Respiratory: Reports as per HPI, Denies no additional respiratory complaints and Denies dyspnea Gastrointestinal: Reports as per HPI and Denies no additional gastrointestinal complaints Genitourinary: Reports as per HPI Musculoskeletal: Reports no additional musculoskeletal complaints and Reports as per HPI Skin/Breast: Reports system reviewed and no additional complaints, except as docu Reports system reviewed and no additional complaints, except as documented and Reports as per HPI Psychiatric: Reports no additional psychiatric complaints and Reports as per HPI Endocrine: Reports no additional endocrine complaints, Reports as per HPI and Denies palpitations Hematologic/Lymphatic: Reports no additional hematologic/lymphatic complaints and Reports as per HPI Allergic/Immunologic: Reports no additional allergic/immunologic complaints and Reports as per HPI Physical Exam Vital Signs: Last Vital Signs Temp 98.1 F 01/23/24 07:02 Pulse 83 01/23/24 08:23 Resp 16 01/23/24 08:23 BP 102/62 01/23/24 07:02 Pulse Ox 94 01/23/24 07:02 O2 Del Method Room Air 01/23/24 07:02 O2 Flow Rate 2 01/20/24 07:30 BMI result Body Mass Index 49.7 Const General: comfortable and no acute distress Orientation/consciousness: patient oriented x3 HEENT Other: Unremarkable Head: Yes normal to inspection Neck Neck: Yes normal visual inspection Chest Chest palpation & inspection: normal inspection of the chest Resp Auscultation: clear to auscultation bilaterally Cardio Palpation: normal PMI Heart sounds: S1 normal heart sound present, S2 normal heart sound present, no gallops, no murmurs and no rubs GI Palpation (GI): Soft to palpation Back/Spine/Pelvis Other: unremarkable Skin General skin exam: no rashes or lesions noted Neuro General: patient oriented x3 Extrem Other: Minimal swelling right lower extremity. General: Yes normal to inspection Psych Mental Status: mental status grossly normal Objective Labs and Meds 01/21/24 07:43 01/23/24 07:00 Lab results: Laboratory Results - last 24 hr 01/22/24 01/22/24 01/22/24 10:49 15:50 21:01 aPTT Heparin Protocol Sodium Potassium Chloride Carbon Dioxide Anion Gap BUN Creatinine Estim Creat Clear Calc Estimated GFR POC Glucose 191 H 150 H 177 H Random Glucose Calcium Magnesium B-Natriuretic Peptide 01/23/24 01/23/24 06:56 07:00 aPTT Heparin Protocol 26.2 L D Sodium 146 H Potassium 3.0 L Chloride 104 Carbon Dioxide 32 H Anion Gap 13 BUN 22 H Creatinine 1.23 Estim Creat Clear Calc 73.8 Estimated GFR 44 POC Glucose 145 H Random Glucose 159 H Calcium 9.1 Magnesium 1.5 L B-Natriuretic Peptide 1853 H Progress Note: A&P Assessment and plan (1) Acute combined systolic and diastolic congestive heart failure: Status: Acute (2) NSTEMI (non-ST elevated myocardial infarction): Status: Acute (3) Ischemic cardiomyopathy: Status: Acute Plan High sensitivity troponin levels are 189 followed by 206. Cardiac BNP level 1608. In the echocardiogram, LVEF is 33% with severe diastolic dysfunction. Basal inferior/mid inferolateral akinesis. Moderate aortic stenosis. Plaque in the proximal ascending aorta. Overall, multiple cardiovascular risk factors, question of TIA/stroke, elevated troponins, cardiomyopathy with evidence of prior infarct on the echocardiogram. Suspect she has chronic coronary disease and the increase in troponin could be related to acute demand related event. Less likely she had acute plaque rupture but can not rule that out either. After discussion with Interventional Cardiology, planning catheterization in a couple of weeks due to recent TIA type event. She agrees with that and she is also asymptomatic at this time. We will make arrangements for the same as an outpatient. Treat with aspirin high-dose statins. Due to blood pressure being on the lower side, may or may not be able tolerate beta-blockers and other guideline based medical therapy for coronary disease/cardiomyopathy. Will need to see as an outpatient. Correct electrolytes and recheck as an outpatient in a few days' time. Will arrange follow-up in clinic. Discussed with Dr. Tan. Time Spent With Patient Time: Total time managing care of this patient today ____ minutes. Progress Note: Quality Stroke Does the patient have a stroke diagnosis?: No Procedures Date of Service Date of Service: 01/23/24
[2024-01-23] MEDS: clonazePAM 0.5 MG TABLET PO (09:44)
[2024-01-23 10:56] LABS: Glucose, Whole Blood 153 mg/dL (60-115)
[2024-01-23 11:22] VITALS: BP 109/60; PULSE 79; RESP 18; TEMP 36.3; O2SAT 95
[2024-01-23] MEDS: Insulin Lispro 100 UNIT/ML 3 ML VIAL SUBCUT (13:17)
--- NOTE | 2024-01-23 13:19 | W.MHC.F2F ---
Service Date Service Date: 01/23/24 Encounter Date of encounter: 01/23/24 Reasons for Services Signs and symptoms assessed: CHF PT Reason for shelter: medication management, medication treatment and teach disease management Reason for physical therapy: home safety and mobility, therapeutic exercises, gait/transfer training, assess need for DME, ADL training and energy conservation Overseeing Care: Isai Zaragoza Homebound: Leaving the home is medically contraindicated at this time without the asist of a device and/or another person due th the listed conditions above and below. Reason homebound: weakness related to hospital stay Certification: Based on the above findings, I certify that this patient is confined to the home and needs intermittent shelter care, physical therapy and/or speech therapy, or continues to need occupational therapy. The patient is under my care, and I have initiated the establishment of the plan of care. The patient will be followed by a physician who will periodically review the plan of care. Time Spent With Patient Time: Total time managing care of this patient today ____ minutes.
--- NOTE | 2024-01-23 13:25 | PM.DS ---
DS: Providers Provider Date of Service: 01/23/24 Date of admission: 01/19/24 16:30 Primary care physician: Isai Zaragoza MD Consults: 01/19/24 16:32 Consult to Cardiology Routine Consulting Provider: Kirill Cr Reason for consultation: chf/sob Has provider been notified: No 01/19/24 16:35 Consult to Neurology Routine Consulting Provider: [facility] Reason for consultation: left sided weakness Has provider been notified: No DS: Diagnosis Discharge Diagnosis (1) Acute combined systolic and diastolic congestive heart failure: Status: Acute (2) Ischemic cardiomyopathy: Status: Acute (3) CHF (congestive heart failure): Status: Acute (4) Brain TIA: Status: Acute (5) Cellulitis of leg, right: Status: Acute (6) Morbid obesity: Status: Acute (7) Hypokalemia: Status: Acute (8) Hypomagnesemia: Status: Acute (9) NSTEMI (non-ST elevated myocardial infarction): Status: Acute DS: Summary Hospital Course Hospital Course: From the history and physical by the admitting hospitalist, Riya Kyle, 01/19/24: 68-year-old female patient of Dr. Zaragoza with past medical history significant for diabetes mellitus, hyperlipidemia, hypertension, depression/anxiety recently diagnosed to have asthma presented to [facility] with left-sided weakness as per patient she woke up at 10 a.m. feeling left-sided weakness had difficulty walking to the bathroom and fell onto the toilet seat, son helped her back to bed , patient also felt that words were sounding different but had no word-finding difficulty, or aphasia and subsequently brought her to ED for evaluation In the emergency room patient denies any headache, no dizziness complained of shortness of breath on and off since November after her dad which was a traumatic event for patient she was seen by her PCP and was diagnosed to have asthma placed on Pulmicort and rescue inhaler , denies recent weight gain, has lost 25 lb, not on home oxygen, c/o shortness of breath with activity get better with rest, denies associated chest pain, no cough she also complained of right lower extremity swelling of several weeks noticed multiple scratching by cat , denies associated fevers, no chills, denies history of smoking, no alcohol use, denies urinary symptoms of urgency frequency workup in the emergency room showed chest x-ray with no acute abnormality showed question subtle left basilar focal infiltrate and or atelectasis , CT head showed no acute abnormality, bilateral lower extremity Doppler study showed no DVT, troponin 189 repeat 2 6, lactic acid 2.4, normal electrolytes and renal function, blood sugar 189, BNP 1608 blood cultures x2 are pending, patient treated in the emergency room with IV Solu Medrol, IV Zosyn, Augmentin, IV Lasix 60 mg, and nitro paste once patient is now being admitted to [facility] due to left-sided weakness, right lower extremity cellulitis elevated BNP for further cardiac and neurological workup and IV antibiotics. 68yo F with obesity, anxiety, depression, HLD, DM2, HTN, GERD presenting with L-sided weakness, RLE redness, and progressive dyspnea. She was admitted to the telemetry unit. Hospital course by problem: acute HFrEF ischemic cardiomyopathy NSTEMI - TTE 01/19 abnormal, showing: - The left ventricular systolic function is moderately decreased. The calculated ejection fraction is 33% by biplane method. - Evidence suggests grade III (severe) diastolic dysfunction. - The basal inferior and mid inferolateral segments are akinetic. - There is severe septal asymmetric hypertrophy. - There is severe calcification of the aortic valve. Overall, suspect moderate aortic stenosis. - Large plaque is seen in the sino tubular ridge. Hs-Tn-I 190, then 206 ng/L. No ischemic EKG changes and no angina symptoms. Cardiology consulted and the patient completed 48h of heparin. Cardiac catheterization will be pursued as outpatient in a few weeks given acute TIA. Diuresed to euvolemic status with IV furosemide and electrolytes repleted; discharged on furosemide, magnesium oxide, and potassium chloride. Lisinopril-HCTZ replaced with lower dose of lisinopril given soft BP; if BP room allows, should also get a beta-scarlet as an outpatient, to be decided upon by Cardiology. RLE cellulitis - Mild and not septic. Treated with doxycycline 01/19-01/22 and discharged on another 4 days of doxycycline. TIA - L-sided weakness resolved within an hour. Neuro consulted and agreed with likely diagnosis of TIA. Placed on ASA + atorvastatin for secondary prevention. She was discharged home with VNA services and Cardiology and Primary Care follow-up was advised. Time Attestation Discharge Coordination Time (in mins): 40 Quality: Safe Use of Opioids Does Pt have an Active Cancer Diagnosis on the Problem List?: No Quality: Stroke Does the patient have a stroke diagnosis?: No Physical Exam Vital Signs: Vital Signs: Last Vital Signs Temp 97.4 F 01/23/24 11:22 Pulse 79 01/23/24 11:22 Resp 18 01/23/24 11:22 BP 109/60 01/23/24 11:22 Pulse Ox 95 01/23/24 11:22 O2 Del Method Room Air 01/23/24 11:22 O2 Flow Rate 2 01/20/24 07:30 BMI result Body Mass Index 49.7 Gen: in no acute distress HEENT: sclera anicteric, moist mucus membranes Neck: supple Lungs: clear to auscultation bilaterally Heart: regular rate and rhythm, no murmurs Abd: soft, non-tender, non-distended, obese Ext: no edema, RLE very slightly swollen below knee Skin: warm/well-perfused, R foot with minimal erythema Neuro: alert and oriented x3, no focal findings, no facial droop, no pronator drift Psych: appropriate affect DS: Data Data Completed and Pending Completed studies during hospitalization [Text1]: Laboratory Results WBC 10.0 X10*3/uL (4.8-10.8) 01/21/24 07:43 RBC 4.20 X10*6/uL (4.20-5.50) 01/21/24 07:43 Hgb 11.2 g/dl (12.0-16.0) L 01/21/24 07:43 Hct 36.2 % (37.0-47.0) L 01/21/24 07:43 MCV 86.2 fL (80.0-98.0) 01/21/24 07:43 MCH 26.7 pg (27.0-33.0) L 01/21/24 07:43 MCHC 30.9 g/dl (31.0-35.0) L 01/21/24 07:43 RDW 16.1 % (11.0-16.0) H 01/21/24 07:43 Plt Count 284 X10*3/uL (160-400) 01/21/24 07:43 MPV 11.0 fL (9.4-12.3) 01/21/24 07:43 Immature Gran % (Auto) 0.5 % (0.0-0.4) H 01/19/24 13:01 Neut % (Auto) 82.1 % (45-73) H 01/19/24 13:01 Lymph % (Auto) 9.5 % (20-40) L 01/19/24 13:01 [place] % (Auto) 6.8 % (2-11) 01/19/24 13:01 Eos % (Auto) 0.7 % (0-4) 01/19/24 13:01 Baso % (Auto) 0.4 % (0-2) 01/19/24 13:01 Lymph # (Auto) 0.9 X10*3/uL (1.2-4.9) L 01/19/24 13:01 [place] # (Auto) 0.6 X10*3/uL (0.1-1.2) 01/19/24 13:01 Eos # (Auto) 0.1 X10*3/uL (0.0-0.4) 01/19/24 13:01 Baso # (Auto) 0.0 X10*3/uL (0.0-0.2) 01/19/24 13:01 Abs Immat Gran (auto) 0.05 X10*3/uL (0.00-0.03) H 01/19/24 13:01 Absolute Neuts (auto) 7.8 x10*3/uL (2.0-8.3) 01/19/24 13:01 Absolute Nucleated RBC 0.000 X10*3/uL (0.0-0.012) 01/21/24 07:43 Nucleated RBC % (auto) 0.0 /100WBC (0.0-0.2) 01/21/24 07:43 Hold Purple Top SEE NOTE 01/19/24 19:22 PT 13.4 SEC (10.9-12.4) H 01/21/24 07:43 INR 1.2 (0.9-1.1) H 01/21/24 07:43 aPTT Heparin Protocol 26.2 SEC (53-77.9) L D 01/23/24 07:00 Sodium 146 mmol/L (135-145) H 01/23/24 07:00 Potassium 3.0 mmol/L (3.3-5.1) L 01/23/24 07:00 Chloride 104 mmol/L (96-108) 01/23/24 07:00 Carbon Dioxide 32 mmol/L (22-29) H 01/23/24 07:00 Anion Gap 13 (12-20) 01/23/24 07:00 BUN 22 mg/dL (9-16) H 01/23/24 07:00 Creatinine 1.23 mg/dL (0.5-1.4) 01/23/24 07:00 Estim Creat Clear Calc 73.8 01/23/24 07:00 Estimated GFR 44 01/23/24 07:00 POC Glucose 153 mg/dL (60-115) H 01/23/24 10:50 Random Glucose 159 mg/dL (60-115) H 01/23/24 07:00 Estimat Average Glucose 154 mg/dL 01/20/24 06:21 Hemoglobin A1c % 7.0 % (<6.0) H 01/20/24 06:21 Lactic Acid 2.4 mmol/L (0.5-2.0) H* 01/19/24 13:02 Lactic Acid F/U @ 2Hr 4.1 mmol/L (0.5-2.0) H* 01/19/24 15:22 Lactic Acid F/U @ 4Hr 1.3 mmol/L (0.5-2.0) 01/19/24 19:22 Calcium 9.1 mg/dL (8.4-10.2) 01/23/24 07:00 Magnesium 1.5 mg/dL (1.6-2.6) L 01/23/24 07:00 Total Bilirubin 0.4 mg/dL (0.0-1.0) 01/19/24 13:01 Direct Bilirubin 0.2 mg/dL (0.0-0.5) 01/19/24 13:01 AST 20 U/L (5-31) 01/19/24 13:01 ALT 28 U/L (0-31) 01/19/24 13:01 Alkaline Phosphatase 64 U/L (39-117) 01/19/24 13:01 Troponin I High Sens 206.0 ng/L (<3.5-17.0) H* 01/19/24 14:28 C-Reactive Protein 0.50 mg/dL (< or = 0.50) 01/20/24 06:21 B-Natriuretic Peptide 1853 pg/mL (<100) H 01/23/24 07:00 Total Protein 6.3 g/dL (6.5-8.0) L 01/19/24 13:01 Albumin 3.5 g/dL (3.5-5.0) 01/19/24 13:01 Triglycerides 82 mg/dL (<150) 01/20/24 06:21 Cholesterol 109 mg/dL (<200) 01/20/24 06:21 LDL Cholesterol, Calc 52 mg/dL (<100) 01/20/24 06:21 HDL Cholesterol 41 mg/dL (>40) 01/20/24 06:21 Lipase 32 U/L (8-78) 01/19/24 13:01 Urine Color Yellow 01/21/24 14:35 Urine Appearance Clear 01/21/24 14:35 Urine pH 6.0 (5.0-9.0) 01/21/24 14:35 Ur Specific [place] <= 1.005 (1.005-1.025) 01/21/24 14:35 Urine Protein Negative mg/dL (Neg-Trace) 01/21/24 14:35 Urine Glucose (UA) Negative mg/dL (Negative) 01/21/24 14:35 Urine Ketones Negative mg/dL (Negative) 01/21/24 14:35 Urine Blood Negative (Negative) 01/21/24 14:35 Urine Nitrite Negative (Negative) 01/21/24 14:35 Ur Leukocyte Esterase Negative (Negative) 01/21/24 14:35 Influenza Type A (PCR) NEGATIVE (Negative) 01/19/24 12:53 Influenza Type B (PCR) NEGATIVE (Negative) 01/19/24 12:53 RSV RNA Qual (PCR) NEGATIVE (Negative) 01/19/24 12:53 SARS-CoV-2 RNA (RT-PCR) NEGATIVE (Negative) 01/19/24 12:53 Impressions Chest X-Ray 01/19/24 12:36 IMPRESSION: Findings as above. Electronically signed by: Bairon Dyson MD 01/19/2024 03:[address] 01/19/24 13:06 IMPRESSION: Normal CT scan of the head. No evidence of acute territorial infarct or hemorrhage. Electronically signed by: Jose C Mccabe MD 01/19/2024 02:34 PM EDT RP Venous Duplex 01/19/24 13:15 IMPRESSION: No evidence of deep venous thrombosis involving the bilateral lower extremities. Electronically signed by: Justine Vicente MD 01/19/2024 02:28 PM EDT RP Head/Neck CTA 01/19/24 17:09 IMPRESSION: This component of the examination is limited due to suboptimal bolus timing and the patient's habitus. The origins of the major aortic vessels and common carotid arteries are obscured. There is a partially calcified atheromatous plaque at the right carotid bifurcation. Cervical carotid arteries are grossly patent. The V1 and proximal V2 segments of the vertebral arteries are obscured. Distal V2 segments and V3 segments of the vertebral arteries are widely patent. No intracranial large vessel occlusion. No evidence of acute territorial infarct or hemorrhage. No abnormal intracranial mass or enhancement. Electronically signed by: Jose C Mccabe MD 01/19/2024 06:00 PM EDT RP Discharge Plan Discharge Anticipated Discharge Date/Time: 01/23/24 13:20 Patient Disposition: Home Health Service Discharge Diagnosis: TIA CHF exacerbation ischemic cardiomyopathy NSTEMI cellulitis Referrals: Shaan NOEL [Outside] - 1 Week Isai Zaragoza MD [Primary Care Provider] - 1 Week Discharge Medications: Jhonny (YOSVANY) marvin Bec See Rx Instructions .Route Qty: 1 0RF Rx Instructions: As directed atorvastatin 80 mg Tablet 80 mg PO DAILY Qty: 30 0RF aspirin 81 mg Tablet,Chewable 81 mg PO DAILY Qty: 30 0RF lisinopril 5 mg Tablet 5 mg PO DAILY Qty: 30 0RF Protocol: Hold for SBP< HOLD for SBP < : 90 furosemide 40 mg Tablet 40 mg PO BID@0900,1800 Qty: 60 0RF Protocol: Hold for SBP< HOLD for SBP < : 90 potassium chloride 20 mEq Tablet,Er Particles/Crystals 20 meq PO BID Qty: 60 0RF magnesium oxide 400 mg (241.3 mg magnesium) Tablet 400 mg PO BIDPC Qty: 60 0RF doxycycline monohydrate 100 mg tablet 100 mg PO BID Qty: 8 0RF Continued escitalopram oxalate 10 mg tablet 10 mg PO DAILY 90 Days Qty: 90 0RF metformin 1,000 mg tablet 1,000 mg PO BID Qty: 60 1RF bupropion HCl 100 mg tablet sustained-release 12 hr 100 mg PO BID Qty: 60 1RF clonazepam 0.5 mg tablet 0.5 mg PO TID PRN (Reason: anxiety) 30 Days Qty: 90 0RF omeprazole 20 mg capsule,delayed release(DR/EC) 20 mg PO DAILY@0630 ergocalciferol (vitamin D2) 1,250 mcg (50,000 unit) capsule 1,250 mcg PO GARDNER@0900 albuterol sulfate 90 mcg/actuation HFA aerosol inhaler 2 puff inhalation Q6H PRN (Reason: for dyspnea) multivitamin Tablet 1 tab PO DAILY cyclobenzaprine 10 mg tablet 10 mg PO TID PRN (Reason: muscle spasm) Qty: 30 1RF Pulmicort Flexhaler 180 mcg/actuation aerosol powdr breath activated 2 inh inhalation BID Qty: 1 3RF (DME) blood-glucose meter [FreeStyle Lite Meter] Kit See Rx Instructions .ROUTE .MEDSUPPLY Qty: 1 0RF Rx Instructions: As directed (DME) FreeStyle Lite Strips Strip See Rx Instructions .ROUTE .MEDSUPPLY Qty: 100 12RF Rx Instructions: As directed once a day (DME) lancets [FreeStyle Lancets] 28 gauge misc See Rx Instructions .ROUTE .MEDSUPPLY Qty: 100 12RF Rx Instructions: As directed Discontinued lisinopril-hydrochlorothiazide 20-12.5 mg tablet 1 tab PO DAILY Qty: 90 1RF simvastatin 20 mg tablet 20 mg PO BEDTIME Discharge Orders: Discharge Order (Routine); Ordered 01/23/24 Ordered By: Kamaljit Tan Diet: Low salt diet Activity on Discharge: As tolerated Stand Alone Forms: Patient Portal Discharge page Print Language: Citizen Of [place] Care Plan Goals: cardiovascular health Health Concerns: TIA CHF exacerbation ischemic cardiomyopathy NSTEMI cellulitis Plan of Treatment: take aspirin 81 mg daily change simvastatin to atorvastatin 80 mg daily Low-sodium diet: less than 2000 mg of sodium daily. Weigh yourself daily and call your doctor if your weight goes up by more than 3 lb/day or 5 lb/week. take furosemide 40 mg twice daily, along with potassium chloride 20 mEq twice daily and magnesium oxide 400 mg twice daily repeat labs in 1 week: BNP, BMP, magnesium [non-fasting] decrease lisinopril to 5 mg once daily follow up with [facility] in 2 weeks to plan for cardiac catheterization and manage CHF doxycycline 100 mg twice daily for 4 days Assessment: See Discharge Summary.
--- NOTE | 2024-01-23 13:29 | MHC.CM.PN ---
Pt is medically cleared for discharge home with new [facility] services, pts son will transport her home.
== END 2024-01-23 14:33 | disposition home health service (06) | DRG 291 ==
LOC: HO.ED 12:50 → HO.EDOVER 16:35 → HO.IMC 16:45
PROVIDERS: Student in an Organized Health Care Education/Training Program; Admitting Provider Hospitalist; Emergency Provider Emergency Medicine; PCP Internal Medicine; Visit Provider Family Medicine
DX: I11.0 Hypertensive heart disease with heart failure (principal); I50.21 Acute systolic (congestive) heart failure; E87.21 Acute metabolic acidosis; L03.115 Cellulitis of right lower limb; Z68.43 Body mass index [BMI] 50.0-59.9, adult; G45.9 Transient cerebral ischemic attack, unspecified; I35.0 Nonrheumatic aortic (valve) stenosis; E87.6 Hypokalemia; F39 Unspecified mood [affective] disorder; I25.5 Ischemic cardiomyopathy; E78.5 Hyperlipidemia, unspecified; E11.9 Type 2 diabetes mellitus without complications; E83.42 Hypomagnesemia; E66.01 Morbid (severe) obesity due to excess calories; J45.20 Mild intermittent asthma, uncomplicated; K21.9 Gastro-esophageal reflux disease without esophagitis; Z20.822 Contact with and (suspected) exposure to COVID-19; Z87.891 Personal history of nicotine dependence; Z79.84 Long term (current) use of oral hypoglycemic drugs; Z79.899 Other long term (current) drug therapy
CPT/HCPCS: 0241U; 36415; 70450; 70496; 70498; 71045; 80048; 80061; 80076; 81003; 82947; 83036; 83605; 83690; 83735; 83880; 84484; 85025; 85027; 85610; 85730; 86140; 87040; 93005; 93306; 93970; 94640; 97116; 97162; 97165; 97535; 99285; J1644; J1650; J1940; J2060; J2543; J2919; J3475; Q9957; Q9967

== ENCOUNTER 2024-01-19 16:30 | Outpatient (BNV) | payer MEDICARE, MEDICAID, SELFPAY | END 2024-01-20 07:00 | PROVIDERS: Admitting Provider Hospitalist; Emergency Provider Emergency Medicine; PCP Internal Medicine; Visit Provider Internal Medicine | DX: I42.2 Other hypertrophic cardiomyopathy (principal); I35.0 Nonrheumatic aortic (valve) stenosis; I34.0 Nonrheumatic mitral (valve) insufficiency; I36.1 Nonrheumatic tricuspid (valve) insufficiency | CPT/HCPCS: 93306 ==

== ENCOUNTER → 2024-01-19 16:30 | Outpatient (BNV) | payer MEDICARE, MEDICAID, SELFPAY | PROVIDERS: Admitting Provider Hospitalist; Emergency Provider Emergency Medicine; PCP Internal Medicine; Visit Provider Internal Medicine | DX: I50.41 Acute combined systolic (congestive) and diastolic (congestive) heart failure (principal); I21.4 Non-ST elevation (NSTEMI) myocardial infarction; I25.5 Ischemic cardiomyopathy | CPT/HCPCS: 99223; 99233 ==

== ENCOUNTER → 2024-01-19 16:30 | Outpatient (BNV) | payer MEDICARE, MEDICAID, SELFPAY | PROVIDERS: Admitting Provider Hospitalist; Emergency Provider Emergency Medicine; PCP Internal Medicine; Visit Provider Psychiatry & Neurology Neurology | DX: G45.9 Transient cerebral ischemic attack, unspecified (principal) | CPT/HCPCS: 99222 ==

== ENCOUNTER → 2024-01-19 16:30 | Outpatient (BNV) | payer MEDICARE, MEDICAID, SELFPAY | PROVIDERS: Admitting Provider Hospitalist; Emergency Provider Emergency Medicine; PCP Internal Medicine; Visit Provider Hospitalist | DX: I50.41 Acute combined systolic (congestive) and diastolic (congestive) heart failure (principal); I25.5 Ischemic cardiomyopathy; I50.9 Heart failure, unspecified; G45.9 Transient cerebral ischemic attack, unspecified; L03.115 Cellulitis of right lower limb; E66.01 Morbid (severe) obesity due to excess calories; E87.6 Hypokalemia; E83.42 Hypomagnesemia; I21.4 Non-ST elevation (NSTEMI) myocardial infarction | CPT/HCPCS: 99222; 99232; 99239; G0180 ==

== ENCOUNTER 2024-01-29 14:08 | Outpatient (AMB) | payer MEDICARE, MEDICAID, SELFPAY ==
--- NOTE | 2024-01-29 14:13 | MHC.OFFVIS ---
Vital Signs 01/29/24 14:14 Height 5 ft 10 in BMI Reason not done Patient refused/unable BP 108/58 L Blood Pressure Location Lt brachial Position Sitting Pulse 78 Pulse Source Pulse Oximeter Intake Visit Reasons: C dc fu (HS) Allergies No Known Allergies Allergy (Verified 01/29/24 14:51) Medication List - Last Reconciled 01/29/24 by Mary House NP albuterol sulfate 90 mcg/actuation 2 puffs inhalation Q4-6H PRN aspirin 81 mg PO DAILY atorvastatin 80 mg PO DAILY blood sugar diagnostic (FreeStyle Lite Strips) As directed once a day blood-glucose meter (FreeStyle Lite Meter kit) As directed bupropion HCl SR 100 mg PO BID clonazepam 0.5 mg PO TID PRN 30 days cyclobenzaprine 10 mg PO TID PRN doxycycline monohydrate 100 mg PO BID ergocalciferol (vitamin D2) 1,250 mcg PO GARDNER@0900 escitalopram oxalate 10 mg PO DAILY 90 days furosemide 40 mg See Protocol PO BID@0900,1800 lancets (FreeStyle Lancets) As directed lisinopril 5 mg See Protocol PO DAILY magnesium oxide 400 mg PO BIDPC metformin 1,000 mg PO BID multivitamin 1 tab PO DAILY omeprazole 20 mg PO DAILY@0630 potassium chloride ER 20 mEq PO BID Pulmicort Flexhaler 180 mcg/actuation (budesonide) 2 inhalations inhalation BID NS walker As directed HPI Comments Details: 68-year-old female presents today for follow up visit after being at [facility] for heart failure, TIA, NSTEMI, and cardiomyopathy. Troponin levels as high as 206. It was discussed going for cardiac catheterization. Patient reports her shortness of breath has greatly improved. She denies chest pains, swelling, or dizziness. [facility] Medical History Asthma Morbid obesity with BMI of 50.0-59.9, adult Morbid obesity with BMI of 45.0-49.9, adult Depression Panic disorder with agoraphobia Seasonal allergic rhinitis due to pollen Vitamin D deficiency GERD without esophagitis Pure hypercholesterolemia Diabetes mellitus Benign essential hypertension Anxiety Surgical History History of total abdominal hysterectomy Family History Father No problems noted. Mother Stroke Social History Household Members: Family Housing: House Do you presently have visiting nurse or other home services: No Alcohol intake: never Patient Tobacco Use Status: Former Tobacco user Non Cigarette Tobacco use Quit date or years: 2013 quit e-Cigarette/Vaping Use: Never Used Second Hand Smoke Exposure: Yes Use of substances other than those prescribed or required for medical reasons: No service: No Current occupational status: retired and disabled Cognitive needs: No Hearing needs: No Vision needs: Yes Review of Systems Const Denies weakness ENT Denies dizziness Card Denies chest pain, Denies chest pain with activity, Denies syncope, Denies rapid heart rate, Denies pedal edema, Denies edema, Denies leg edema, Denies lightheadedness, Denies palpitations, Denies dyspnea, Denies dyspnea on exertion and Denies orthopnea Resp Denies cough, Denies dyspnea and Denies dyspnea on exertion GI Denies hematochezia and Denies change in stool character Musc Denies abnormal gait, Denies muscle cramps, Denies muscle weakness, Denies numbness, Denies radiating pain into limb and Denies tingling Neuro Denies abnormal gait, Denies dizziness, Denies syncope, Denies numbness, Denies tingling and Denies weakness Endo Denies palpitations Physical Exam Vital Signs: Last Vital Signs Pulse 78 01/29/24 14:14 BP 108/58 L 01/29/24 14:14 Assessment & Plan Assessment & Plan (1) NSTEMI (non-ST elevated myocardial infarction): Code(s): I21.4 - Non-ST elevation (NSTEMI) myocardial infarction Category: Medical (2) Ischemic cardiomyopathy: Code(s): I25.5 - Ischemic cardiomyopathy Category: Medical Plan Cardiac BNP level 1608. Per echocardiogram ejection fraction was 33% with severe diastolic dysfunction. Basal inferior/mid inferior lateral akinesis. Moderate aortic stenosis. She has multiple risk factors. She will be going for cardiac catheterization. Discussed in detail about the cardiac catheterization. Patient reports understanding and is agreeable to plan. If any questions or concerns rate she will give us a call. Continue all medications as current. Emergency care if needed. Coding Level of Care Code Est Pt Level 3 (87405) Diagnoses NSTEMI (non-ST elevated myocardial infarction) I21.4 Ischemic cardiomyopathy I25.5
[2024-01-29 14:14] VITALS: BP 108/58; PULSE 78
== END 2024-01-29 15:47 | disposition home or self-care (01) ==
PROVIDERS: PCP Internal Medicine; Visit Provider Nurse Practitioner
DX: I21.4 Non-ST elevation (NSTEMI) myocardial infarction (principal); I25.5 Ischemic cardiomyopathy
CPT/HCPCS: 99213

== ENCOUNTER → 2024-01-29 14:08 | Outpatient (BNVA) | payer MEDICARE, MEDICAID, SELFPAY | PROVIDERS: PCP Internal Medicine; Visit Provider Nurse Practitioner | DX: I21.4 Non-ST elevation (NSTEMI) myocardial infarction (principal); I25.5 Ischemic cardiomyopathy | CPT/HCPCS: 99212 ==

== ENCOUNTER → 2024-02-11 23:59 | Outpatient (BNV) | payer MEDICARE, MEDICAID, SELFPAY | PROVIDERS: PCP Internal Medicine; Visit Provider Internal Medicine Cardiovascular Disease | DX: I21.4 Non-ST elevation (NSTEMI) myocardial infarction (principal) | CPT/HCPCS: 93458; 99152 ==

== ENCOUNTER 2024-02-27 11:57 | Outpatient (REF) | payer MEDICARE, MEDICAID, SELFPAY ==
[2024-02-27 13:01] LABS: B Type Natriuretic Peptide 217 pg/mL (<100)
[2024-02-27 13:20] LABS: Alanine Aminotransferase 18 U/L (0-31); Albumin Level 3.8 g/dL (3.5-5.0); Alkaline Phosphatase 59 U/L (39-117); Anion Gap 16 (12-20); Aspartate Amino Transferase 22 U/L (5-31); Bilirubin Total 0.5 mg/dL (0.0-1.0); Blood Urea Nitrogen 40 mg/dL (9-16); Calcium 10.9 mg/dL (8.4-10.2); Carbon Dioxide 27 mmol/L (22-29); Chloride 103 mmol/L (96-108); Estimated Glomerular Filt Rate 29; Glucose Random 139 mg/dL (60-115); Magnesium 1.3 mg/dL (1.6-2.6); Potassium 4.8 mmol/L (3.3-5.1); Sodium 141 mmol/L (135-145); Total Protein 6.9 g/dL (6.5-8.0)
== END 2024-02-27 11:58 | disposition home or self-care (01) ==
LOC: HO.LAB 11:57
PROVIDERS: Nurse Practitioner Family; Absent Provider Internal Medicine; PCP Internal Medicine; Visit Provider Internal Medicine
DX: I50.41 Acute combined systolic (congestive) and diastolic (congestive) heart failure (principal); I50.9 Heart failure, unspecified; I21.4 Non-ST elevation (NSTEMI) myocardial infarction; Z98.890 Other specified postprocedural states; I42.8 Other cardiomyopathies; R53.1 Weakness; I10 Essential (primary) hypertension; Z09 Encounter for follow-up examination after completed treatment for conditions other than malignant neoplasm
CPT/HCPCS: 36415; 80053; 83735; 83880; 99212

== ENCOUNTER 2024-02-27 12:22 | Outpatient (AMB) | payer MEDICARE, MEDICAID, SELFPAY ==
[2024-02-27 12:50] VITALS: BP 80/62; PULSE 101
--- NOTE | 2024-02-27 12:50 | A.OFFVIS_ITS ---
Vital Signs 02/27/24 12:50 Height 5 ft 10 in BP 80/62 L Blood Pressure Location Rt brachial Position Sitting Pulse 101 H Pulse Source Pulse Oximeter Intake Visit Reasons: * 2 wk f/up s/p cath Plywood Matcher Required: No Extractor Puller: Extractor Puller Present Allergies No Known Allergies Allergy (Verified 02/27/24 12:54) Medication List - Last Reconciled 02/27/24 by ANDI Jerez albuterol sulfate 90 mcg/actuation 2 puffs inhalation Q4-6H PRN aspirin 81 mg PO DAILY atorvastatin 80 mg PO DAILY blood sugar diagnostic (FreeStyle Lite Strips) As directed once a day blood-glucose meter (FreeStyle Lite Meter kit) As directed bupropion HCl SR 100 mg PO BID clonazepam 0.5 mg PO TID PRN 30 days cyclobenzaprine 10 mg PO TID PRN ergocalciferol (vitamin D2) 1,250 mcg PO GARDNER@0900 escitalopram oxalate 10 mg PO DAILY 90 days furosemide 40 mg See Protocol PO BID 30 days lancets (FreeStyle Lancets) As directed lisinopril 5 mg See Protocol PO DAILY magnesium oxide 400 mg PO BIDPC metformin 1,000 mg PO BID multivitamin 1 tab PO DAILY omeprazole 20 mg PO DAILY potassium chloride ER 20 mEq PO BID Pulmicort Flexhaler 180 mcg/actuation (budesonide) 2 inhalations inhalation BID NS walker As directed HPI HPI * 2 wk f/up s/p cath: Details: Estrella is a 68-year-old female past medical history of hypertension, hyperlipidemia, diabetes, obesity, who was admitted to [facility] in December with left-sided weakness, TIA. She was found to have elevated troponin levels consistent with NSTEMI. An echocardiogram showed reduced EF and wall motion abnormality. As an outpatient she was set up for cardiac catheterization which was completed and shows no coronary artery disease. She now presents for follow-up. Today she reports that she has been doing well since her hospital discharge. She no longer has any left-sided weakness. She reports some issues with numbness in her hands and feet which she feels is from neuropathy. She has some right hip discomfort and ambulates slowly with a cane. For this visit she is sitting in a wheelchair. She has some lightheadedness when she is upright and walking. No presyncope, syncope, falls. Her breathing is comfortable at rest. No PND, orthopnea or edema. No chest discomfort at rest or with activity. No palpitations, racing heart. She has been taking her medications as directed. Her son is present. [facility] Medical History NSTEMI (non-ST elevated myocardial infarction) Asthma exacerbation Asthma Morbid obesity with BMI of 50.0-59.9, adult Morbid obesity with BMI of 45.0-49.9, adult Depression Panic disorder with agoraphobia Seasonal allergic rhinitis due to pollen Vitamin D deficiency GERD without esophagitis Pure hypercholesterolemia Diabetes mellitus Benign essential hypertension Anxiety Surgical History History of total abdominal hysterectomy Family History Father No problems noted. Mother Stroke Social History Household Members: Family Housing: House Do you presently have visiting nurse or other home services: No Alcohol intake: never Patient Tobacco Use Status: Former Tobacco user e-Cigarette/Vaping Use: Never Used Second Hand Smoke Exposure: Yes service: No Current occupational status: retired and disabled Cognitive needs: No Hearing needs: No Vision needs: Yes Review of Systems Const All systems reviewed & are unremarkable except as noted in HPI and below ENT Reports dizziness Card Denies chest pain, Denies chest pain at rest, Denies chest pain with activity, Denies rapid heart rate, Denies pedal edema, Denies edema, Denies leg edema, Denies lightheadedness, Denies palpitations, Denies dyspnea, Denies dyspnea on exertion and Denies orthopnea Resp Denies cough, Denies dyspnea and Denies dyspnea on exertion GI Denies hematochezia and Denies change in stool character Musc Details: And wheelchair at this visit, ambulates with cane Reports abnormal gait, Reports limited range of motion, Denies muscle cramps, Reports muscle weakness, Denies numbness, Denies radiating pain into limb, Denies stiffness and Denies tingling Neuro Reports abnormal gait, Reports dizziness, Denies numbness and Denies tingling Endo Denies palpitations Physical Exam Vital Signs: Last Vital Signs Pulse 101 H 10/31/24 12:50 BP 80/62 L 02/27/24 12:50 Const General: cooperative, healthy appearing, comfortable and no acute distress Orientation/consciousness: patient oriented x3 Neck Neck: Yes normal visual inspection and Yes no JVD Resp Effort & Inspection: normal respiratory effort Auscultation: clear to auscultation bilaterally, no rales, no rhonchi and no wheezes Cardio Jugular venous distension: no JVD Rate: regular rate Rhythm: regular rhythm Heart sounds: S1 normal heart sound present, S2 normal heart sound present, no murmurs and no rubs Neuro General: patient oriented x3 Extrem General: Yes normal to inspection and No no pedal edema Psych Appearance: grossly normal Assessment & Plan Assessment & Plan (1) CHF (congestive heart failure): Code(s): I50.9 - Heart failure, unspecified Category: Medical Plan: Recent [facility] [place] for left-sided weakness, TIA. She was found to have evidence of fluid overload. Her troponin was elevated consistent with NSTEMI. BNP 1608. An echocardiogram showed EF 33%, grade 3 diastolic dysfunction, basal inferior, mid inferior lateral akinetic, moderate aortic stenosis. She was diuresed with IV Lasix and discharged with Lasix 40 mg b.i.d., potassium and magnesium supplements. Cardiac catheterization done 02/11/2024 shows normal coronary arteries. Her cardiomyopathy is nonischemic. It could possibly be related to stress-induced cardiomyopathy as she recently lost her father. Today she reports that she has been doing well since her hospital discharge. She does report some lightheadedness when upright and walking. She had labs today however result were not available at the time of the visit. Blood pressure was low, recheck done by me 88/62. On exam she had no clinical signs of fluid overload. At that time I instructed her to reduce Lasix down to once daily. Hold lisinopril for the next few days. Increase fluid intake by at least 12 oz a day - labs reviewed the following morning prior to completion of this note. Potassium 4.2, creatinine 1.74, magnesium 1.3, BNP 217. Will call her this morning and have her hold Lasix. Increase magnesium supplement up to 3 tablets daily. Recheck of labs on Saturday which is 3 days from now. Once those results are known will call her with further med adjustments. Will check a limited echo prior to her next office visit to reassess EF. Cardiology office visit in 2 months, sooner if needed. (2) NSTEMI (non-ST elevated myocardial infarction): Code(s): I21.4 - Non-ST elevation (NSTEMI) myocardial infarction Category: Medical Plan: Troponin elevation with NSTEMI noted on last hospitalization. She did not have reports of chest discomfort. Her EKG was nonischemic. Her echo did show a reduced EF and wall motion abnormality. Cardiac catheterization has been completed showing normal coronary arteries. (3) S/P cardiac cath: Comment: 02/11/2024, normal coronary arteries Code(s): Z98.890 - Other specified postprocedural states Category: Surgical Plan: As above (4) Nonischemic cardiomyopathy: Code(s): I42.8 - Other cardiomyopathies Category: Medical Plan: Nonischemic cardiomyopathy. She is on a low-dose lisinopril which which will be held at this point due to low blood pressure. I am reducing her diuretic dose overall due to TUSHAR. Beta-scarlet was not started on her due to soft blood pressure when she was hospitalized. Unable to start at this time. (5) Left-sided weakness: Code(s): R53.1 - Weakness Category: Medical Plan: Left-sided weakness at time of hospitalization in December. She was seen by Neurology and thought to have microvascular TIA. Her weakness has fully resolved.. She is on aspirin and high-dose atorvastatin. (6) Benign essential hypertension: Code(s): I10 - Essential (primary) hypertension Category: Medical Plan: As above (7) Hospital discharge follow-up: Code(s): Z09 - Encounter for follow-up examination after completed treatment for conditions other than malignant neoplasm Category: Medical Plan: As above Plan Time spent on chart review, documentation, interview and assessment Orders: Orders Comprehensive Met. Panel 3 Days I50.9 - Heart failure, unspecified Magnesium 3 Days E83.42 - Hypomagnesemia CA Echo Limited 4 Weeks I42.8 - Other cardiomyopathies B Type Natriuretic Peptide 3 Days I50.41 - Acute combined systolic (congestive) and diastolic (congestive) heart failure Coding Level of Care Code Est Pt Level 4 (11770) Complex EM visit Add On G2211 Diagnoses CHF (congestive heart failure) I50.9 NSTEMI (non-ST elevated myocardial infarction) I21.4 S/P cardiac cath Z98.890 Nonischemic cardiomyopathy I42.8 Left-sided weakness R53.1 Benign essential hypertension I10 Hospital discharge follow-up Z09 Time Spent (min) 36
== END 2024-02-27 13:40 | disposition home or self-care (01) ==
PROVIDERS: PCP Internal Medicine; Visit Provider Nurse Practitioner Family
DX: I50.9 Heart failure, unspecified (principal); I21.4 Non-ST elevation (NSTEMI) myocardial infarction; Z98.890 Other specified postprocedural states; I42.8 Other cardiomyopathies; R53.1 Weakness; I10 Essential (primary) hypertension; Z09 Encounter for follow-up examination after completed treatment for conditions other than malignant neoplasm
CPT/HCPCS: 99214; G2211

== ENCOUNTER 2024-03-04 07:07 | Outpatient (REF) | payer MEDICARE, MEDICAID, SELFPAY ==
[2024-03-04 08:13] LABS: B Type Natriuretic Peptide 410 pg/mL (<100)
[2024-03-04 08:25] LABS: Alanine Aminotransferase 16 U/L (0-31); Albumin Level 3.6 g/dL (3.5-5.0); Alkaline Phosphatase 56 U/L (39-117); Anion Gap 16 (12-20); Aspartate Amino Transferase 22 U/L (5-31); Bilirubin Total 0.3 mg/dL (0.0-1.0); Blood Urea Nitrogen 26 mg/dL (9-16); Calcium 10.2 mg/dL (8.4-10.2); Carbon Dioxide 23 mmol/L (22-29); Chloride 109 mmol/L (96-108); Estimated Glomerular Filt Rate 41; Glucose Random 97 mg/dL (60-115); Magnesium 1.5 mg/dL (1.6-2.6); Potassium 4.7 mmol/L (3.3-5.1); Sodium 143 mmol/L (135-145); Total Protein 6.4 g/dL (6.5-8.0)
== END 2024-03-04 07:08 | disposition home or self-care (01) ==
LOC: HO.LAB 07:07
PROVIDERS: PCP Internal Medicine; Visit Provider Nurse Practitioner Family
DX: E83.42 Hypomagnesemia (principal); I50.41 Acute combined systolic (congestive) and diastolic (congestive) heart failure; I50.9 Heart failure, unspecified
CPT/HCPCS: 36415; 80053; 83735; 83880

== ENCOUNTER 2024-03-11 10:35 | Outpatient (REF) | payer MEDICARE, MEDICAID, SELFPAY ==
[2024-03-11 11:28] LABS: B Type Natriuretic Peptide 463 pg/mL (<100)
[2024-03-11 11:46] LABS: Anion Gap 15 (12-20); Blood Urea Nitrogen 27 mg/dL (9-16); Calcium 10.2 mg/dL (8.4-10.2); Carbon Dioxide 26 mmol/L (22-29); Chloride 104 mmol/L (96-108); Estimated Glomerular Filt Rate 35; Glucose Random 133 mg/dL (60-115); Magnesium 1.5 mg/dL (1.6-2.6); Potassium 4.6 mmol/L (3.3-5.1); Sodium 140 mmol/L (135-145)
== END 2024-03-11 10:36 | disposition home or self-care (01) ==
LOC: HO.LAB 10:35
PROVIDERS: PCP Internal Medicine; Visit Provider Nurse Practitioner Family
DX: I42.8 Other cardiomyopathies (principal); E83.42 Hypomagnesemia
CPT/HCPCS: 36415; 80048; 83735; 83880

== ENCOUNTER 2024-03-25 08:41 | Outpatient (REF) | payer MEDICARE, MEDICAID, SELFPAY ==
[2024-03-25 10:04] LABS: Anion Gap 18 (12-20); Blood Urea Nitrogen 29 mg/dL (9-16); Calcium 9.4 mg/dL (8.4-10.2); Carbon Dioxide 29 mmol/L (22-29); Chloride 102 mmol/L (96-108); Estimated Glomerular Filt Rate 41; Glucose Random 138 mg/dL (60-115); Magnesium 1.6 mg/dL (1.6-2.6); Potassium 4.7 mmol/L (3.3-5.1); Sodium 144 mmol/L (135-145)
[2024-03-25 10:06] LABS: B Type Natriuretic Peptide 613 pg/mL (<100)
== END 2024-03-25 08:42 | disposition home or self-care (01) ==
LOC: HO.LAB 08:41
PROVIDERS: PCP Internal Medicine; Visit Provider Nurse Practitioner Family
DX: I42.8 Other cardiomyopathies (principal); E83.42 Hypomagnesemia
CPT/HCPCS: 36415; 80048; 83735; 83880

== ENCOUNTER → 2024-05-06 14:41 | Outpatient (REF) | payer MEDICARE, MEDICAID, SELFPAY ==
--- NOTE | 2024-05-06 14:46 | CA_ITS ---
Transthoracic Echocardiogram Patient (Last, First, Middle): Estrella Albright, Gender: Female Date of : 1955 Age: 68 Procedure Date: 05/06/2024 Procedure Type: Transthoracic Echocardiogram Location: OP Height: 177.8 cm Weight: 151.96 kg BSA: 2.60 m2 Heart Rate: bpm BP: 112 / 78 mmHg [place] Instrument Repairer: NADINE Referring MD: Suzi Sam CARGO SURVEYORArely Symptoms: I42.8 - Other cardiomyopathies Study Quality: Technically Difficult, contrast ECG Rhythm: Sinus Conclusions: - The left ventricular systolic function is moderately decreased. The visually estimated ejection fraction is between 30-35%. Findings Procedure Information Contrast agent, definity, is being given per protocol without apparent complications. Left Ventricle Mildly increased left ventricular cavity size. The left ventricular systolic function is moderately decreased. The visually estimated ejection fraction is between 30-35%. There is moderate global hypokinesis. Venous The inferior vena cava is normal in size and collapses less than 50% with inspiration. Prior Study Comparison No significant change compared to prior study dated: 01/20/2024. Measurements 2D Linear Measurements LVOT Diam: 2.00 3.0+(-)1.3 cm 2D Systolic Function EF 4C: 43.00 >55% EF 2C: 36.00 >55% EF BiP: 38.30 >55% LVOT LVOT Pk Cornel: 0.57 LVOT Mn Cornel: 0.40 LVOT VTI: 0.11 LVOT Pk Grad: 1.00 LVOT Mn Grad: 1.00 LVOT Diam: 2.00 LVOT Area: 3.14 Tricuspid Valve RA Press: 8.00 Updated in Other Vendor System with Status of Final Florencio Lima MD electronically signed on 05/08/2024 4:35:34 PM with status of Final
== END ==
LOC: HO.CARD 14:41
PROVIDERS: PCP Internal Medicine; Visit Provider Nurse Practitioner Family
DX: I42.8 Other cardiomyopathies (principal)
CPT/HCPCS: 93308; Q9957

== ENCOUNTER → 2024-05-06 14:46 | Outpatient (BNV) | payer MEDICARE, MEDICAID, SELFPAY | PROVIDERS: PCP Internal Medicine; Visit Provider Internal Medicine | DX: I42.8 Other cardiomyopathies (principal) | CPT/HCPCS: 93308 ==

== ENCOUNTER 2024-08-27 13:58 | Outpatient (REF) | payer MEDICARE, MEDICAID, SELFPAY ==
[2024-08-27 14:22] LABS: MANUAL DIFF FLAG NO
[2024-08-27 14:54] LABS: Basophils Absolute Auto 0.1 X10*3/uL (0.0-0.2); Basophils Percent Auto 0.6 % (0-2); Eosinophils Absolute Auto 0.2 X10*3/uL (0.0-0.4); Eosinophils Percent Auto 2.9 % (0-4); Hemoglobin 11.7 g/dl (12.0-16.0); Imm Gran Abs Auto 0.02 X10*3/uL (0.00-0.03); Imm Gran Pct Auto 0.2 % (0.0-0.4); Lymphocytes Absolute Auto 1.4 X10*3/uL (1.2-4.9); Lymphocytes Percent Auto 16.7 % (20-40); Mean Corpuscular HGB Conc 30.8 g/dl (31.0-35.0); Mean Corpuscular Hemoglobin 28.9 pg (27.0-33.0); Mean Corpuscular Volume 93.8 fL (80.0-98.0); Mean Platelet Volume 10.5 fL (9.4-12.3); Monocytes Absolute Auto 0.8 X10*3/uL (0.1-1.2); Monocytes Percent Auto 9.5 % (2-11); Neutrophils Absolute Auto 5.8 x10*3/uL (2.0-8.3); Neutrophils Percent Auto 70.1 % (45-73); Platelet Count 301 X10*3/uL (160-400); Red Blood Count 4.05 X10*6/uL (4.20-5.50); Red Cell Distribution Width 13.5 % (11.0-16.0); White Blood Count 8.2 X10*3/uL (4.8-10.8)
[2024-08-27 15:11] LABS: Cholesterol 122 mg/dL (<200); HDL Cholesterol 47 mg/dL (>40); LDL Cholesterol Calculated 52 mg/dL (<100); Triglycerides 115 mg/dL (<150)
[2024-08-27 15:14] LABS: Rheumatoid Factor < 13.0 IU/mL (<15.0)
[2024-08-27 15:37] LABS: Alanine Aminotransferase 11 U/L (0-31); Albumin Level 3.8 g/dL (3.5-5.0); Alkaline Phosphatase 76 U/L (39-117); Anion Gap 14 (12-20); Aspartate Amino Transferase 20 U/L (5-31); Bilirubin Total 0.6 mg/dL (0.0-1.0); Blood Urea Nitrogen 32 mg/dL (9-16); C Reactive Protein 0.14 mg/dL (< or = 0.50); Calcium 9.6 mg/dL (8.4-10.2); Carbon Dioxide 29 mmol/L (22-29); Chloride 104 mmol/L (96-108); Estimated Glomerular Filt Rate 41; Glucose Random 120 mg/dL (60-115); Potassium 4.5 mmol/L (3.3-5.1); Sodium 142 mmol/L (135-145); Total Protein 6.7 g/dL (6.5-8.0); Uric Acid 7.3 mg/dL (2.4-5.7)
[2024-08-27 15:42] LABS: Erythrocyte Sedimentation Rate 18 MM/HR (0-20)
[2024-08-27 15:45] LABS: Folate 11.1 ng/mL (> or = 4.0); Vitamin B12 < 148 pg/mL (200-900)
[2024-08-27 15:47] LABS: Vitamin D 25-OH Total 42.5 ng/mL (>30)
[2024-08-31 12:18] LABS: Anti Nuclear Antibody Pattern Nuclear, Homogeneous; Anti Nuclear Antibody Screen POSITIVE (NEGATIVE)
== END 2024-08-27 13:59 | disposition home or self-care (01) ==
LOC: HO.LAB 13:58
PROVIDERS: Absent Provider Nurse Practitioner Family; PCP Internal Medicine; Visit Provider Internal Medicine
DX: D64.9 Anemia, unspecified (principal); M25.50 Pain in unspecified joint; M79.643 Pain in unspecified hand; M79.673 Pain in unspecified foot; E78.00 Pure hypercholesterolemia, unspecified; E55.9 Vitamin D deficiency, unspecified; M10.9 Gout, unspecified; E53.8 Deficiency of other specified B group vitamins; I42.8 Other cardiomyopathies; I11.0 Hypertensive heart disease with heart failure; I50.9 Heart failure, unspecified; I21.4 Non-ST elevation (NSTEMI) myocardial infarction; R53.1 Weakness; Z98.890 Other specified postprocedural states
CPT/HCPCS: 36415; 80053; 80061; 82306; 82607; 82746; 84443; 84550; 85025; 85652; 86038; 86039; 86140; 86431; 93005; 99212

== ENCOUNTER 2024-08-27 14:24 | Outpatient (AMB) | payer MEDICARE, MEDICAID, SELFPAY ==
[2024-08-27 15:20] VITALS: BP 100/72; PULSE 84
--- NOTE | 2024-08-27 15:20 | MHC.OFFVIS ---
Vital Signs 08/27/24 15:20 Height 5 ft 10 in BP 100/72 Blood Pressure Location Rt brachial Position Sitting Pulse 84 Pulse Source Monitor Intake Visit Reasons: r/s 05/28-07/23 2-3 mos s/p echo Topper Press Operator Required: No Food Preparation Supervisor: Food Preparation Supervisor Present Allergies No Known Allergies Allergy (Verified 08/27/24 15:22) Medication List - Last Reconciled 08/27/24 by ANDI Jerez albuterol sulfate 90 mcg/actuation 2 puffs inhalation Q4-6H PRN aspirin 1 tab PO DAILY atorvastatin 80 mg PO DAILY blood sugar diagnostic (FreeStyle Lite Strips) As directed once a day blood-glucose meter (FreeStyle Lite Meter kit) As directed bupropion HCl SR 100 mg PO BID clonazepam 0.5 mg PO TID PRN 30 days cyclobenzaprine 10 mg PO TID PRN ergocalciferol (vitamin D2) 1,250 mcg PO GARDNER@0900 escitalopram oxalate 10 mg PO DAILY 90 days furosemide (Lasix) 20 mg orally daily along with additional 20mg tablet every other day: 20mg alternating with 40 mg ; 30 days lancets (FreeStyle Lancets) As directed lidocaine 5% 1 patch topical DAILY magnesium oxide 400 mg PO TID metformin 1,000 mg PO BID multivitamin 1 tab PO DAILY omeprazole 20 mg PO DAILY potassium chloride ER (Klor-Con M) 20 mEq PO BID walker As directed HPI HPI r/s 05/28-07/23 2-3 mos s/p echo: Details: Estrella is a 68-year-old female past medical history of hypertension, hyperlipidemia, diabetes, obesity, who was admitted to [facility] in December with left-sided weakness, TIA. She was found to have elevated troponin levels consistent with NSTEMI. An echocardiogram showed reduced EF and wall motion abnormality. As an outpatient she was set up for cardiac catheterization which showed no coronary artery disease. She has nonischemic cardiomyopathy and has not been able to have neurohormonal modulation due to low blood pressure readings. She now presents for follow-up. Today she reports that she has been doing generally well since her last visit in January. She has not had any new neurological type symptoms. She no longer has left-sided weakness. She reports ongoing issues with numbness in her hands and feet which she feels is from neuropathy. She has increasing right hip discomfort and ambulates slowly with a cane. For this visit she is sitting in a wheelchair. She has some lightheadedness at time when she is upright and walking. No presyncope, syncope, falls. Her breathing is comfortable at rest. No PND, orthopnea or edema. No chest discomfort at rest or with activity. No palpitations, racing heart. She has been taking her medications as directed. Home blood pressures typically run with systolic ranging between 100-117. Her son is present. [facility] Medical History NSTEMI (non-ST elevated myocardial infarction) Asthma exacerbation Asthma Morbid obesity with BMI of 50.0-59.9, adult Morbid obesity with BMI of 45.0-49.9, adult Depression Panic disorder with agoraphobia Seasonal allergic rhinitis due to pollen Vitamin D deficiency GERD without esophagitis Pure hypercholesterolemia Diabetes mellitus Benign essential hypertension Anxiety Surgical History History of total abdominal hysterectomy Family History Father No problems noted. Mother Stroke Social History Household Members: Family Housing: House Do you presently have visiting nurse or other home services: No Alcohol intake: never Patient Tobacco Use Status: Former Tobacco user e-Cigarette/Vaping Use: Never Used Second Hand Smoke Exposure: Yes service: No Current occupational status: retired and disabled Cognitive needs: No Hearing needs: No Vision needs: Yes Review of Systems Const All systems reviewed & are unremarkable except as noted in HPI and below ENT Denies dizziness Card Denies chest pain, Denies chest pain at rest, Denies chest pain with activity, Denies rapid heart rate, Denies pedal edema, Denies edema, Reports leg edema, Denies lightheadedness, Denies palpitations, Denies dyspnea, Reports dyspnea on exertion and Denies orthopnea Resp Denies cough, Denies dyspnea and Reports dyspnea on exertion GI Denies hematochezia and Denies change in stool character Musc Reports abnormal gait, Denies limited range of motion, Denies muscle cramps, Denies muscle weakness, Denies numbness, Reports radiating pain into limb, Denies stiffness and Denies tingling Neuro Reports abnormal gait, Denies dizziness, Denies numbness and Denies tingling Endo Denies palpitations Physical Exam Vital Signs: Last Vital Signs Pulse 84 08/27/24 15:20 BP 100/72 08/27/24 15:20 Const Other: morbidly obese, sitting in wheelchair General: cooperative, healthy appearing, comfortable and no acute distress Orientation/consciousness: patient oriented x3 Neck Neck: Yes normal visual inspection and Yes no JVD Resp Effort & Inspection: normal respiratory effort Auscultation: clear to auscultation bilaterally, no rales, no rhonchi and no wheezes Cardio Jugular venous distension: no JVD Rate: regular rate Rhythm: regular rhythm Heart sounds: S1 normal heart sound present, S2 normal heart sound present, no murmurs and no rubs Neuro General: patient oriented x3 Extrem General: Yes normal to inspection Psych Appearance: grossly normal Office Procedures EKG Details: Today, read by me, normal sinus rhythm, nonspecific T-wave abnormality, QTC 475 milliseconds, rate 84 [id number], Complete Assessment & Plan Assessment & Plan (1) Nonischemic cardiomyopathy: Code(s): I42.8 - Other cardiomyopathies Category: Medical Plan: Diagnosed last fall with nonischemic cardiomyopathy: She had [facility] [place] for left-sided weakness, TIA and was found to have fluid overload. Echocardiogram 01/20/2024 showed EF 33%, grade 3 diastolic dysfunction, basal inferior, mid inferior lateral akinetic, moderate aortic stenosis. Cardiac catheterization done 02/11/2024 shows normal coronary arteries. Her blood pressure runs low and she has not tolerated neurohormonal modulation. She is on daily Lasix. Repeat echocardiogram done 05/06/2024 shows EF 30-35%, global hypokinesis. Case reviewed with Dr. Lima. ICD is indicated. Discuss this with her in detail and she is agreeable to proceed. Will send referral to electrophysiology for a Medtronic ICD placement. Will trial lisinopril 2.5 mg daily to help with neurohormonal modulation. Continue Lasix to help prevent fluid overload. Labs done 08/27/2024 showed creatinine 1.29. Signs and symptoms of heart failure reviewed with her. Will arrange for cardiology follow-up approximately 6 weeks post ICD placement for device check at that time. (2) CHF (congestive heart failure): Code(s): I50.9 - Heart failure, unspecified Category: Medical Plan: Morbidly obese and difficult to assess fluid status at present. She does not appear grossly overloaded at this time. Continue Lasix (3) NSTEMI (non-ST elevated myocardial infarction): Code(s): I21.4 - Non-ST elevation (NSTEMI) myocardial infarction Category: Medical Plan: Troponin elevation with NSTEMI noted on last hospitalization. She did not have reports of chest discomfort. Her EKG was nonischemic. Her echo did show a reduced EF and wall motion abnormality. Cardiac catheterization has been completed showing normal coronary arteries. (4) S/P cardiac cath: Comment: 02/11/2024, normal coronary arteries Code(s): Z98.890 - Other specified postprocedural states Category: Surgical Plan: As above (5) Left-sided weakness: Code(s): R53.1 - Weakness Category: Medical Plan: Left-sided weakness at time of hospitalization in December. She was seen by Neurology and thought to have microvascular TIA. Her weakness has fully resolved.. She is on aspirin and high-dose atorvastatin. No recurrent symptoms (6) Benign essential hypertension: Code(s): I10 - Essential (primary) hypertension Category: Medical Plan: [place] blood pressure goal less than 130/80. Blood pressure runs low with lightheadedness at times. Blood pressure recheck done by me 108/68. Will be trialing low-dose lisinopril to see if she can tolerate. Plan Time spent on chart review, documentation, interview and assessment Patient was informed and verbally consented to the use of an ambient scribe for clinic note documentation during this visit. We thoroughly discussed the risks and benefits of introducing lisinopril to address her heart's current reduced ejection fraction, taking into consideration her baseline hypotension. Significant time was spent discussing the advantages of an ICD for arrhythmia treatment in light of her heart's current condition. The ICD procedure, characterized by its minimally invasive nature and protective benefits, was explained in detail. I obtained patient consent after outlining expectations, precautions, and follow-up care. Discussions about managing her sleep disruptions and pain were had, planning further consultation with Dr. Zaragoza. I provided anticipatory guidance regarding the outcomes of an ICD, emphasizing the importance of safety it provides against potential arrhythmias. Follow-up visits and cardiac monitoring strategies were proposed post-procedure. Orders: Referrals Cardiac Electrophysiology Referral I42.8 - Other cardiomyopathies Medications: New lisinopril 2.5 mg PO DAILY 30 tabs 5RF Patient Instructions: - Start low-dose lisinopril as prescribed. - Plan for an ICD insertion; details about procedure and follow-ups will be provided. - Monitor blood pressure regularly at home. - Follow up with Dr. Nik prescott hip and leg pain assessment and management. - Report any changes in symptoms or new concerns promptly. - Use supportive devices like a walker as needed for mobility. - Rest as needed to manage fatigue from sleep disturbances. Coding Level of Care Code Est Pt Level 4 (05634) Complex EM visit Add On G2211 Diagnoses Nonischemic cardiomyopathy I42.8 CHF (congestive heart failure) I50.9 NSTEMI (non-ST elevated myocardial infarction) I21.4 S/P cardiac cath Z98.890 Left-sided weakness R53.1 Benign essential hypertension I10 CPT Codes EKG - CPT: [id number], Complete ([id number]) Time Spent (min) 40
== END 2024-08-27 16:07 | disposition home or self-care (01) ==
LOC: HO.HCS 14:25
PROVIDERS: PCP Internal Medicine; Visit Provider Nurse Practitioner Family
DX: I42.8 Other cardiomyopathies (principal); I50.9 Heart failure, unspecified; I21.4 Non-ST elevation (NSTEMI) myocardial infarction; Z98.890 Other specified postprocedural states; R53.1 Weakness; I10 Essential (primary) hypertension
CPT/HCPCS: 99214; G2211

== ENCOUNTER 2024-11-08 17:34 | Inpatient (IN) | payer MEDICARE, MEDICAID, SELFPAY ==
[2024-11-08] VITALS (13 sets, daily range): BP systolic 55–117; BP diastolic 23–96; PULSE 101–139; RESP 17–24; TEMP 36.4–36.7; O2SAT 92–95; BMI 45.6
--- NOTE | ~2024-11-08 | XR_ITS ---
CLINICAL HISTORY: CVC guidewire exchange 1 view chest x-ray Comparison: 11/09/2024, 0422 Findings: Portions of the exam obscured by overlying material. Left IJ introducer sheath tip projects over the aortic arch. Overall appearance of the chest is not significantly changed. Endotracheal tube is 4 cm above the [place]. IMPRESSION: 1. No significant change from earlier exam following removal left IJ central line. 2. Left IJ introducer sheath projecting over aortic arch, exact location indeterminate. This document has been electronically signed by: Giancarlo Bernardo MD on 11/09/2024 06:51:03
--- NOTE | ~2024-11-08 | CT_ITS ---
CLINICAL HISTORY: fall CT head without contrast Comparison: Head CT from 01/19/2024 Findings: No acute intracranial abnormality. No midline shift or hydrocephalus. Mild volume loss is generalized. No large arterial territorial infarction by CT, accounting for artifacts. Mild white matter lesions likely due to small-vessel ischemic disease with motion metal artifacts noted. Imaged paranasal sinuses and imaged mastoid air cells are well aerated. No acute skull fracture. IMPRESSION: 1. No acute intracranial abnormality by CT. This document has been electronically signed by: Skyler Craven MD on 11/08/2024 21:53:15
--- NOTE | ~2024-11-08 | CT_ITS ---
CLINICAL HISTORY: fall CT cervical spine without contrast Comparison: None provided Findings: No acute fracture of the cervical spine, accounting for motion artifacts. Lucency of the posterior arch of the C1 is on a congenital basis. Mild reversal of the cervical lordosis. 5 mm anterolisthesis at C3-C4. Disc osteophyte complexes and facet arthropathy are multifocal with mild spinal canal stenosis of the C4-C5 to C6-C7. Moderate to severe left foraminal narrowing at C5-C6. Additional foraminal narrowing is mild. No paraspinal hematoma accounting for artifacts. Motion scarring of the partially imaged lung apices. Vascular calcifications noted. Metal artifacts also present. IMPRESSION: 1. No acute fracture of the cervical spine. 2. Anterolisthesis at C3-C4 This document has been electronically signed by: Skyler Craven MD on 11/08/2024 21:56:08
--- NOTE | ~2024-11-08 | CT_ITS ---
CLINICAL HISTORY: uti sepsis r o ob uropathy CT abdomen and pelvis without contrast Comparison: None provided Findings: Fluid in the upper abdomen is nonspecific and likely accentuated by motion artifacts. Differential considerations include pyelonephritis and pancreatitis given upper abdominal fluid. Lipid rich adenoma of the right adrenal gland measures 0.5 cm. 1.5 cm nodule of the left adrenal glands indeterminate with bilateral adrenal hyperplasia. Mild liver surface nodularity suggested as can be seen with cirrhotic change. The gallbladder is surgically absent. The spleen is nonenlarged. No hydronephrosis. Multiple peripancreatic, mesenteric, periaortic lymph nodes are nonspecific and may be reactive. Enteric contrast versus dense ingested material nonenlarged intestine. No small bowel obstruction at this time. Imaged appendix is within normal limits (image 81 of series 11). Gas and Mello catheter in the nondistended urinary bladder with nonspecific wall thickening of the urinary bladder. Uterus is anteverted. No adnexal soft tissue mass by CT. Wall thickening of the large intestine is nonspecific by noncontrast CT., Including imaged cecum. Mild colitis considered. Vascular calcifications noted. Please refer to separate report for chest CT included lung bases. Degenerative changes are multifocal including vacuum disc phenomenon and facet arthropathy of the lumbar spine. Severe osteoarthritis of the both hips, right worse than left. Avascular necrosis of the hips, particularly in the right. Enthesopathy is multifocal. IMPRESSION: 1. Free fluid is nonspecific including upper abdomen. Differential considerations include combination of the pancreatitis of the pyelonephritis. 2. Wall thickening of the urinary bladder is nonspecific and may reflect cystitis. 3. Adrenal lesions with indeterminate nodule in the left. Please consider outpatient adrenal mass imaging for additional characterization. This document has been electronically signed by: Skyler Craven MD on 11/09/2024 01:59:33
--- NOTE | ~2024-11-08 | CT_ITS ---
CLINICAL HISTORY: cough sepsis r o pna CT chest without contrast Comparison: Chest x-ray from 11/08/2024 Findings: Mild bibasilar atelectasis and/or pneumonitis. Moderate to severe cardiomegaly. Vascular calcifications noted. Venous gas noted of the anterior upper mediastinum. No pneumothorax. Emphysematous changes are redemonstrated. Motion artifacts noted in the partial obscuration of the nodes and chest wall. Additional rib deformities appear old/chronic. Degenerative changes include the imaged shoulders and imaged spine. Sternum deformity likely secondary to motion artifacts. Fat deposition of the imaged liver. Volume loss of the pancreas. Question pancreatitis. Other fluid also considered. Portions of the abdomen obscured by motion artifacts. Gallbladder is surgically absent. Imaged spleen is nonenlarged. IMPRESSION: Bibasilar atelectasis and/or pneumonitis. Recommend attention on follow-up to ensure resolution This document has been electronically signed by: Skyler Craven MD on 11/09/2024 01:40:43
--- NOTE | ~2024-11-08 | XR_ITS ---
CLINICAL HISTORY: CVC placement 1 view chest x-ray Comparison: CT/SR - CT CHEST WO IV CON - 11/09/24 00:40 EDT CR - XR CHEST 1V - 11/08/24 21:27 EDT Findings: Left basilar subsegmental atelectasis or infiltrate with layering pleural effusion. Cardiac silhouette is enlarged. Left internal jugular central venous catheter is curled with the distal tip projecting over the right subclavian vein. Recommend repositioning. No acute fracture. IMPRESSION: 1. Left basilar subsegmental atelectasis or infiltrate with small layering pleural effusion. 2. Left internal jugular central venous catheter is crossing midline with the distal tip projecting over the right subclavian vein. Recommend repositioning. This document has been electronically signed by: Harish Snyder MD, PHD on 11/09/2024 04:42:54
--- NOTE | ~2024-11-08 | XR_ITS ---
CLINICAL HISTORY: chf 1 view chest x-ray Comparison: Chest x-ray from 01/19/2024 Findings: Bilateral pulmonary opacities are nonspecific may reflect pulmonary edema superimposed on chronic lung disease. Mild emphysematous changes noted. Additional pneumonitis/pneumonia also considered of the left lung base with question small left pleural effusion. No pneumothorax. Cardiomegaly redemonstrated accentuated by AP technique. Degenerative changes include imaged shoulders and imaged AC joints. IMPRESSION: Pulmonary opacities are nonspecific and may reflect pulmonary edema superimposed on chronic lung disease. Recommend attention on follow-up to ensure resolution This document has been electronically signed by: Skyler Craven MD on 11/08/2024 22:23:34
--- NOTE | ~2024-11-08 | US_ITS ---
EXAMINATION: US NONINVASIVE ASSESSMENT OF THE RIGHT LOWER EXTREMITY ARTERIES WITHOUT ABIs. HISTORY: Poor pulses with dusky color, cool to touch, rule out ischemic right leg. 68-year-old female with history of hypertension, diabetes, hyperlipidemia, former smoker. COMPARISON: None. FINDINGS: Atheromatous Plaque: No significant plaque present. No arterial thrombus seen. RIGHT FEMORAL RUNOFF VELOCITIES: The right common femoral artery measures 65.3 cm/s and triphasic. The right profunda femoral artery is 40.4 cm/s and is triphasic. The right proximal superficial femoral artery measures 79.0 cm/s and triphasic. The right mid superficial femoral artery is 56.2 cm/s and triphasic. The right distal right superficial femoral artery measures 48.3 cm/s and is triphasic. The right popliteal velocity measures 35.3 cm/s and is triphasic. The right posterior tibial artery velocity measures 74.6 cm/s and is triphasic. The right dorsalis pedis artery velocity measures 20 cm/s and is triphasic. US/US arterial duplex LE RT IMPRESSION: 1. Normal right lower extremity peripheral arterial testing with normal velocity measurements, and normal triphasic waveforms. No significant atheromatous plaque present, and no evidence of arterial thrombus present. Electronically signed by: Amandeep House MD 11/09/2024 09:38 AM EDT
--- NOTE | 2024-11-08 18:26 | ED.NEUROSD ---
HPI - Neuro Symptoms/Deficit General Stated Complaint: possible stroke alert found on floor 48hrs bruised Time Seen by Provider: 11/08/24 18:25 Source: patient Mode of arrival: EMS Limitations: no limitations Related Data Home Medications ?Medication ?Instructions ?Recorded ?Confirmed multivitamin 1 tab PO DAILY 02/26/20 08/27/24 ergocalciferol (vitamin D2) 1,250 1,250 mcg PO GARDNER@0900 01/19/24 08/27/24 mcg (50,000 unit) capsule Previous Rx's ?Medication ?Instructions ?Recorded blood sugar diagnostic (FreeStyle #100 ea 12/04/23 Lite Strips) blood-glucose meter (FreeStyle #1 ea 12/04/23 Lite Meter kit) lancets 28 gauge (FreeStyle #100 ea 12/04/23 Lancets) walker #1 ea 01/23/24 cyclobenzaprine 10 mg tablet 10 mg PO TID PRN muscle spasm #30 06/29/24 tabs escitalopram oxalate 10 mg tablet 10 mg PO DAILY 90 days #90 tabs 07/01/24 aspirin 81 mg chewable tablet 1 tab PO DAILY #90 tabs 07/02/24 lidocaine 5 % topical patch 1 patch topical DAILY #30 ea 07/10/24 atorvastatin 80 mg tablet 80 mg PO DAILY #90 tabs 07/28/24 magnesium oxide 400 mg (241.3 mg 400 mg PO TID #270 tabs 07/28/24 magnesium) tablet potassium chloride 20 mEq 20 meq PO BID #180 tabs 07/28/24 tablet,extended release(part/cryst) (Klor-Con M) lisinopril 2.5 mg tablet 2.5 mg PO DAILY #30 tabs 08/27/24 albuterol sulfate 90 mcg/actuation 2 puff inhalation Q4-6H PRN for 08/28/24 aerosol inhaler dyspnea #8.5 ea furosemide 20 mg tablet 20 mg PO DAILY #135 tabs 09/03/24 clonazepam 0.5 mg tablet 0.5 mg PO TID PRN anxiety 30 days 10/02/24 #90 tabs metformin 1,000 mg tablet 1,000 mg PO BID #60 tabs 10/23/24 omeprazole 20 mg capsule,delayed 20 mg PO DAILY #30 caps 10/23/24 release bupropion HCl 100 mg tablet,12 hr 100 mg PO BID #60 caps 10/25/24 sustained-release Allergies Allergy/AdvReac Type Severity Reaction Status Date / Time No Known Allergies Allergy Verified 08/27/24 15:22 [facility] Past Medical History Medical History NSTEMI (non-ST elevated myocardial infarction) Asthma exacerbation Asthma Morbid obesity with BMI of 50.0-59.9, adult Morbid obesity with BMI of 45.0-49.9, adult Depression Panic disorder with agoraphobia Seasonal allergic rhinitis due to pollen Vitamin D deficiency GERD without esophagitis Pure hypercholesterolemia Diabetes mellitus Benign essential hypertension Anxiety Surgical History History of total abdominal hysterectomy Family History Family History Father No problems noted. Mother Stroke Social History Social History Household Members: Family Housing: House Do you presently have visiting nurse or other home services: No Alcohol intake: never Patient Tobacco Use Status: Former Tobacco user e-Cigarette/Vaping Use: Never Used Second Hand Smoke Exposure: Yes service: No Current occupational status: retired and disabled Cognitive needs: No Hearing needs: No Vision needs: Yes Discharge Plan Discharge Prescriptions: No Action cyclobenzaprine 10 mg tablet 10 mg PO TID PRN (Reason: muscle spasm) Qty: 30 1RF escitalopram oxalate 10 mg tablet 10 mg PO DAILY 90 Days Qty: 90 1RF aspirin 81 mg tablet,chewable 1 tab PO DAILY Qty: 90 3RF lidocaine 5 % adhesive patch,medicated 1 patch topical DAILY Qty: 30 0RF Rx Instructions: leave on most painful area for up to 12 hrs magnesium oxide 400 mg (241.3 mg magnesium) tablet 400 mg PO TID Qty: 270 1RF atorvastatin 80 mg tablet 80 mg PO DAILY Qty: 90 1RF potassium chloride [Klor-Con M20] 20 mEq tablet,ER particles/crystals 20 meq PO BID Qty: 180 1RF albuterol sulfate 90 mcg/actuation HFA aerosol inhaler 2 puff inhalation Q4-6H PRN (Reason: for dyspnea) Qty: 8.5 3RF furosemide 20 mg tablet 20 mg PO DAILY Qty: 135 3RF clonazepam 0.5 mg tablet 0.5 mg PO TID PRN (Reason: anxiety) 30 Days Qty: 90 0RF omeprazole 20 mg capsule,delayed release(DR/EC) 20 mg PO DAILY Qty: 30 1RF metformin 1,000 mg tablet 1,000 mg PO BID Qty: 60 1RF bupropion HCl 100 mg tablet sustained-release 12 hr 100 mg PO BID Qty: 60 0RF ergocalciferol (vitamin D2) 1,250 mcg (50,000 unit) capsule 1,250 mcg PO GARDNER@0900 (DME) walker [facility] [place] See Rx Instructions .Route Qty: 1 0RF Rx Instructions: As directed multivitamin Tablet 1 tab PO DAILY (DME) blood-glucose meter [FreeStyle Lite Meter] Kit See Rx Instructions .ROUTE .MEDSUPPLY Qty: 1 0RF Rx Instructions: As directed (DME) FreeStyle Lite Strips Strip See Rx Instructions .ROUTE .MEDSUPPLY Qty: 100 12RF Rx Instructions: As directed once a day (DME) lancets [FreeStyle Lancets] [facility] See Rx Instructions .ROUTE .MEDSUPPLY Qty: 100 12RF Rx Instructions: As directed lisinopril 2.5 mg tablet 2.5 mg PO DAILY Qty: 30 5RF Print Language: Swazi
--- NOTE | 2024-11-08 18:37 | ECG_ITS ---
Test Reason : FALL Blood Pressure : */* mmHG Vent. Rate : 101 BPM Atrial Rate : * BPM P-R Int : * ms QRS Dur : 118 ms QT Int : 334 ms P-R-T Axes : * -1 67 degrees QTcB Int : 433 ms Atrial fibrillation with rapid ventricular response Possible Inferior infarct , age undetermined Possible Anterior infarct , age undetermined Abnormal ECG When compared with ECG of 19-Jan-2024 14:07, Atrial fibrillation has replaced Sinus rhythm QRS duration has increased Borderline criteria for Anterior infarct are now Present Nonspecific T wave abnormality no longer evident in Inferior leads Referred By: Willam Alaniz Electronically Signed By: ABDELRAHMAN LEDEZMA
[2024-11-08 19:43] LABS: Hematocrit 38.2 % (37.0-47.0); Hemoglobin 12.4 g/dl (12.0-16.0); Imm Gran Abs Auto 0.03 X10*3/uL (0.00-0.03); Imm Gran Pct Auto 0.2 % (0.0-0.4); Lymphocytes Absolute Auto 0.3 X10*3/uL (1.2-4.9); MANUAL DIFF FLAG SCAN; Mean Corpuscular HGB Conc 32.5 g/dl (31.0-35.0); Mean Corpuscular Hemoglobin 27.3 pg (27.0-33.0); Mean Corpuscular Volume 84.1 fL (80.0-98.0); NRBC Abs Auto 0.220 X10*3/uL (0.0-0.012); NRBC Pct Auto 1.8 /100WBC (0.0-0.2); PLT CLUMP 1; Red Blood Count 4.54 X10*6/uL (4.20-5.50); SCAN SMEAR FLAG 1
[2024-11-08 19:44] LABS: White Blood Count 12.3 X10*3/uL (4.8-10.8)
[2024-11-08 19:54] LABS: Platelet Count 78 X10*3/uL (160-400)
[2024-11-08 20:14] LABS: Alanine Aminotransferase 863 U/L (0-31); Albumin Level 3.3 g/dL (3.5-5.0); Alkaline Phosphatase 244 U/L (39-117); Anion Gap 25 (12-20); Aspartate Amino Transferase 831 U/L (5-31); Calcium 9.1 mg/dL (8.4-10.2); Carbon Dioxide 11 mmol/L (22-29); Chloride 110 mmol/L (96-108); Creatinine Clr Calc Pharmacy 23.6; Estimated Glomerular Filt Rate 12; Magnesium 2.7 mg/dL (1.6-2.6); Sodium 139 mmol/L (135-145); Total Protein 5.8 g/dL (6.5-8.0)
--- NOTE | 2024-11-08 20:15 | ED.GENADULT ---
HPI - General Adult General Chief complaint: Fall Stated complaint: possible stroke alert found on floor 48hrs bruised Time Seen by Provider: 11/08/24 18:25 Source: patient and family Mode of arrival: EMS Limitations: no limitations History of Present Illness ED Provider: HPI narrative: Patient is 68-year-old old morbidly obese with past medical history of diabetes on metformin hypertension hyperlipidemia depression anxiety peripheral neuropathy TIA moderate aortic stenosis been having difficulty in walking with frequent falls specially for last few months patient's uses walker and cane but lately she been falling more often patient lives alone patient fell about 3 days ago son went on help her out again she fell next day and the son went and help her out. Patient did not want to come to the hospital patient's saw her last time was 11/07 when he left at 16:00 last night also patient fell at unknown time and son came at 14:00 after work and noticed she was about 3 ft away from the bed saw in the urine trying to wipe with tissue paper at this time patient's son decided to call ambulance to bring her to the hospital patient denied any significant head injury no loss of consciousness denies any chest pain patient has been eating and drinking less amount of fluids for last few days Related Data Home Medications ?Medication ?Instructions ?Recorded ?Confirmed multivitamin 1 tab PO DAILY 02/26/20 08/27/24 ergocalciferol (vitamin D2) 1,250 1,250 mcg PO GARDNER@0900 01/19/24 08/27/24 mcg (50,000 unit) capsule Previous Rx's ?Medication ?Instructions ?Recorded blood sugar diagnostic (FreeStyle #100 ea 12/04/23 Lite Strips) blood-glucose meter (FreeStyle #1 ea 12/04/23 Lite Meter kit) lancets 28 gauge (FreeStyle #100 ea 12/04/23 Lancets) walker #1 ea 01/23/24 cyclobenzaprine 10 mg tablet 10 mg PO TID PRN muscle spasm #30 06/29/24 tabs escitalopram oxalate 10 mg tablet 10 mg PO DAILY 90 days #90 tabs 07/01/24 aspirin 81 mg chewable tablet 1 tab PO DAILY #90 tabs 07/02/24 lidocaine 5 % topical patch 1 patch topical DAILY #30 ea 07/10/24 atorvastatin 80 mg tablet 80 mg PO DAILY #90 tabs 07/28/24 magnesium oxide 400 mg (241.3 mg 400 mg PO TID #270 tabs 07/28/24 magnesium) tablet potassium chloride 20 mEq 20 meq PO BID #180 tabs 07/28/24 tablet,extended release(part/cryst) (Klor-Con M) lisinopril 2.5 mg tablet 2.5 mg PO DAILY #30 tabs 08/27/24 albuterol sulfate 90 mcg/actuation 2 puff inhalation Q4-6H PRN for 08/28/24 aerosol inhaler dyspnea #8.5 ea furosemide 20 mg tablet 20 mg PO DAILY #135 tabs 09/03/24 clonazepam 0.5 mg tablet 0.5 mg PO TID PRN anxiety 30 days 10/02/24 #90 tabs metformin 1,000 mg tablet 1,000 mg PO BID #60 tabs 10/23/24 omeprazole 20 mg capsule,delayed 20 mg PO DAILY #30 caps 10/23/24 release bupropion HCl 100 mg tablet,12 hr 100 mg PO BID #60 caps 10/25/24 sustained-release Allergies Allergy/AdvReac Type Severity Reaction Status Date / Time No Known Allergies Allergy Verified 11/08/24 18:54 Review of Systems Review of Systems: Yes all other systems are reviewed and are negative PMFSH Past Medical History Medical History NSTEMI (non-ST elevated myocardial infarction) Asthma exacerbation Asthma Morbid obesity with BMI of 50.0-59.9, adult Morbid obesity with BMI of 45.0-49.9, adult Depression Panic disorder with agoraphobia Seasonal allergic rhinitis due to pollen Vitamin D deficiency GERD without esophagitis Pure hypercholesterolemia Diabetes mellitus Benign essential hypertension Anxiety Surgical History History of total abdominal hysterectomy Family History Family History Father No problems noted. Mother Stroke Social History Social History Household Members: Family Housing: House Do you presently have visiting nurse or other home services: No Alcohol intake: never Patient Tobacco Use Status: Former Tobacco user e-Cigarette/Vaping Use: Never Used Second Hand Smoke Exposure: Yes Use of substances other than those prescribed or required for medical reasons: No Advance Directives: Yes Advance Directives Information Provided: Yes Advance Directives on File: No service: No Current occupational status: retired and disabled Cognitive needs: No Hearing needs: No Vision needs: Yes Physical Exam ED Vital Signs: Vital Signs - 24 hr 11/08/24 18:32 11/08/24 20:50 11/08/24 20:52 Temperature 98.1 F 97.5 F 97.5 F Pulse Rate 112 H 118 H 112 H Respiratory Rate 24 H 23 H 21 H Blood Pressure 104/85 117/70 117/70 Pulse Oximetry 95 Oxygen Delivery Method Nasal Cannula Oxygen Flow Rate 4 11/08/24 21:35 11/08/24 21:57 11/08/24 22:30 Temperature Pulse Rate 121 H Respiratory Rate 18 Blood Pressure 93/60 107/76 80/37 L Pulse Oximetry 94 Oxygen Delivery Method Nasal Cannula Oxygen Flow Rate 4 11/08/24 23:16 11/08/24 23:24 11/08/24 23:35 Temperature Pulse Rate 135 H 139 H Respiratory Rate 18 18 Blood Pressure 113/96 H 95/67 77/23 L Pulse Oximetry 95 Oxygen Delivery Method Nasal Cannula Oxygen Flow Rate 4 BMI result Body Mass Index 45.6 Appearance: Alert. Oriented X3. Looks sick Eyes: PERRLA, No Nystagmus ENT: Pharynx normal. Oral Mucosa Dry Neck: Normal inspection. Neck supple. CVS: Irregularly irregular heart rate systolic ejection murmur+ Pulses normal. Respiratory: No respiratory distress. Equal air entry bilateral, no wheezing/rales/rhonchi Abdomen: Soft and nontender. Bowel sounds are present, no mass palpable, no CVA tenderness Skin: Skin warm and dry. Normal skin turgor. Intertrigo and groin area Extremities: No lower extremity edema. No calf tenderness Neuro: Oriented X 3. No motor deficit. No sensory deficit.No cerebellar signs , cranial nerves II-XII intact cold peripheries Medications Administered Generic Name Dose Route Start Last Admin Trade Name Freq PRN Reason Stop Dose Admin Heparin Sodium/Sodium Chloride 25,000 unit in 250 mls @ 0 mls/hr 11/08/24 21:00 11/08/24 21:32 Heparin Sodium,Porcine/1/2ns IVCONT 6.93 units/kg/hr .Q0M HERNANDO 10 mls/hr Protocol Administration Per Protocol Amiodarone HCl 900 mg/ Sodium 518 mls @ 34.533 mls/hr 11/09/24 01:00 11/09/24 01:06 Chloride IVCONT 1 mg/min .Q15H1M HERNANDO 34.53 mls/hr Protocol Administration 1 MG/MIN Norepinephrine Bitartrate 8 mg in 250 mls @ 0 mls/hr 11/08/24 23:45 11/09/24 00:28 Levophed IVCONT 0.2 mcg/kg/min .Q0M HERNANDO 54.08 mls/hr Protocol Titration Per Protocol Discontinued Medications Generic Name Dose Route Start Last Admin Trade Name Freq PRN Reason Stop Dose Admin Dextrose 25 gm 11/08/24 20:19 11/08/24 20:34 Dextrose 50 % 25 Gm/50 Ml Syringe IVPUSH 11/08/24 20:20 25 gm ONCE ONE Administration Diltiazem HCl 20 mg 11/08/24 21:00 11/08/24 22:05 Diltiazem Hcl 50 Mg/10 Ml Vial IVPUSH 11/08/24 21:01 Not Given STAT STA Heparin Sodium (Porcine) 5,000 unit 11/08/24 20:55 11/08/24 21:28 Heparin Sodium,Porcine 5,000 Unit/Ml Vial IVPUSH 11/08/24 20:56 5,000 unit ONCE ONE Administration Sodium Chloride 1,000 mls @ 999 mls/hr 11/08/24 18:37 11/08/24 20:33 Ns IV 11/08/24 19:37 Infused .Q1H1M ONE Infusion Sodium Chloride 1,000 mls @ 999 mls/hr 11/08/24 19:43 11/08/24 22:17 Ns IV 11/08/24 20:43 Infused .Q1H1M ONE Infusion Calcium Gluconate 2 gm in 100 mls @ 50 mls/hr 11/08/24 20:19 11/08/24 23:13 Calcium Gluconate IV 11/08/24 22:18 Infused ONCE ONE Infusion Sodium Chloride 1,000 mls @ 999 mls/hr 11/08/24 22:06 11/08/24 23:25 Ns IV 11/08/24 23:06 Infused .Q1H1M ONE Infusion Amiodarone HCl 150 mg in 100 mls @ 600 mls/hr 11/08/24 22:58 11/08/24 23:43 Nexterone IV 11/08/24 23:07 Infused ONCE ONE Infusion Albumin Human 100 mls @ 133.333 mls/hr 11/08/24 23:15 11/09/24 00:28 Kedbumin 25 % IV 11/09/24 00:59 Infused Q1H HERNANDO Infusion Insulin Human Regular 8 unit 11/08/24 20:19 11/08/24 20:34 Insulin Regular, Human 100 Unit/Ml 10 Ml Vial IVPUSH 11/08/24 20:20 8 unit ONCE ONE Administration Nystatin 1 appl 11/08/24 21:02 11/08/24 23:14 Nystatin Powder 15 Gm Bottle TOPICAL 11/08/24 21:03 1 appl ONCE ONE Administration Protocol Sodium Bicarbonate 50 meq 11/08/24 21:52 11/08/24 21:57 Sodium Bicarbonate 8.4% 50 Meq/50 Ml Syringe IVPUSH 11/08/24 21:53 50 meq ONCE ONE Administration Sodium Zirconium Cyclosilicate 10 gm 11/08/24 20:19 11/08/24 20:36 Sodium Zirconium Cyclosilicate 10 Gm Powd.Pack PO 11/08/24 20:20 10 gm ONCE ONE Administration Medical Decision Making Medical Decision Making [facility] Narrative: Patient is 68-year-old old morbidly obese with past medical history of diabetes on metformin hypertension hyperlipidemia depression anxiety peripheral neuropathy TIA moderate aortic stenosis been having difficulty in walking with walker came here after fall been on the floor since last night patient's workup showed rhabdomyolysis with elevated CPK and troponin with TUSHAR creatinine of 3.64 with new onset atrial fibrillation with rapid ventricular rate with CHF had lactic acidosis which is second-degree to renal failure no signs of infection patient is clinically not septic. Patient has had elevated troponin likely from demand ischemia no acute dynamic EKG changes were seen patient's blood pressure dropped intermittently was started on Levophed drip and ICU was consulted for admission for multisystem failure involving the elevated liver enzymes, BUN/creatinine and troponin patient has received IV fluids Mello catheter was placed patient has had hyperkalemia which was from rhabdo and acute renal failure patient was received Lokelma and calcium gluconate and sodium bicarbonate and insulin with glucose Case discussed Dr. 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 Browning will take the patient to ICU agreed with the plan at this time Differential Diagnosis Differential Diagnoses: The differential diagnosis associated with the presentation includes Admission/Observation Consideration of admission/observation: Escalation of care including admission/observation considered Consult Healthcare Provider Management of the patient was discussed with: Board Mill Supervisor Document Image Technician and Physician Executive Lab Data MDM Lab Attestation statement: I reviewed the patient's lab results. 11/08/24 19:27 11/08/24 23:35 Labs: Lab Results 11/08/24 11/08/24 11/08/24 Range/Units 19:27 20:43 21:43 WBC 12.3 H (4.8-10.8) X10*3/uL RBC 4.54 (4.20-5.50) X10*6/uL Hgb 12.4 (12.0-16.0) g/dl Hct 38.2 (37.0-47.0) % MCV 84.1 (80.0-98.0) fL MCH 27.3 (27.0-33.0) pg MCHC 32.5 (31.0-35.0) g/dl RDW 16.1 H (11.0-16.0) % Plt Count 78 L D (160-400) X10*3/uL MPV 12.4 H (9.4-12.3) fL Immature Gran % (Auto) 0.2 (0.0-0.4) % Neut % (Auto) 89.1 H (45-73) % Lymph % (Auto) 2.4 L (20-40) % [place] % (Auto) 8.2 (2-11) % Eos % (Auto) 0.0 (0-4) % Baso % (Auto) 0.1 (0-2) % Lymph # (Auto) 0.3 L (1.2-4.9) X10*3/uL [place] # (Auto) 1.0 (0.1-1.2) X10*3/uL Eos # (Auto) 0.0 (0.0-0.4) X10*3/uL Baso # (Auto) 0.0 (0.0-0.2) X10*3/uL Abs Immat Gran (auto) 0.03 (0.00-0.03) X10*3/uL Absolute Neuts (auto) 10.9 H (2.0-8.3) x10*3/uL Absolute Nucleated RBC 0.220 H (0.0-0.012) X10*3/uL Nucleated RBC % (auto) 1.8 H (0.0-0.2) /100WBC Smear Tech's Comments VERIFIED PT 24.7 H D (10.9-12.4) SEC INR 2.2 H (0.9-1.1) APTT 29.3 (26.0-36.8) SEC Sodium 139 (135-145) mmol/L Potassium 6.8 H* D (3.3-5.1) mmol/L Chloride 110 H (96-108) mmol/L Carbon Dioxide 11 L (22-29) mmol/L Anion Gap 25 H (12-20) BUN 118 H (9-16) mg/dL Creatinine 3.64 H (0.5-1.4) mg/dL Estim Creat Clear Calc 23.6 Estimated GFR 12 Random Glucose 180 H (60-115) mg/dL Lactic Acid (0.5-2.0) mmol/L Calcium 9.1 (8.4-10.2) mg/dL Magnesium 2.7 H (1.6-2.6) mg/dL Total Bilirubin 2.0 H (0.0-1.0) mg/dL Direct Bilirubin (0.0-0.5) mg/dL AST 831 H (5-31) U/L ALT 863 H (0-31) U/L Alkaline Phosphatase 244 H (39-117) U/L Total Creatine Kinase 1066 H (26-140) U/L Troponin I High Sens 83610.1 H* D (<3.5-17.0) ng/L B-Natriuretic Peptide (<100) pg/mL Total Protein 5.8 L (6.5-8.0) g/dL Albumin 3.3 L (3.5-5.0) g/dL Urine Color Dark Yellow Urine Appearance Cloudy Urine pH 5.0 (5.0-9.0) Ur Specific [place] 1.020 (1.005-1.025) Urine Protein 100 (2+) H (Neg-Trace) mg/dL Urine Glucose (UA) Negative (Negative) mg/dL Urine Ketones Trace (Negative) mg/dL Urine Blood Small (1+) H (Negative) Urine Nitrite Negative (Negative) Ur Leukocyte Esterase Small (1+) H (Negative) Urine RBC 0-2 (0-2) /HPF Urine WBC 0-5 (0-5) /HPF Ur Squamous Epith Cells 6-10 (0-2) /HPF Urine Bacteria 4+ (None Seen) Hyaline Casts >20 (0-2) /LPF Granular Casts Present 11/08/24 11/08/24 Range/Units 22:51 23:35 WBC (4.8-10.8) X10*3/uL RBC (4.20-5.50) X10*6/uL Hgb (12.0-16.0) g/dl Hct (37.0-47.0) % MCV (80.0-98.0) fL MCH (27.0-33.0) pg MCHC (31.0-35.0) g/dl RDW (11.0-16.0) % Plt Count (160-400) X10*3/uL MPV (9.4-12.3) fL Immature Gran % (Auto) (0.0-0.4) % Neut % (Auto) (45-73) % Lymph % (Auto) (20-40) % [place] % (Auto) (2-11) % Eos % (Auto) (0-4) % Baso % (Auto) (0-2) % Lymph # (Auto) (1.2-4.9) X10*3/uL [place] # (Auto) (0.1-1.2) X10*3/uL Eos # (Auto) (0.0-0.4) X10*3/uL Baso # (Auto) (0.0-0.2) X10*3/uL Abs Immat Gran (auto) (0.00-0.03) X10*3/uL Absolute Neuts (auto) (2.0-8.3) x10*3/uL Absolute Nucleated RBC (0.0-0.012) X10*3/uL Nucleated RBC % (auto) (0.0-0.2) /100WBC Smear Tech's Comments PT (10.9-12.4) SEC INR (0.9-1.1) APTT (26.0-36.8) SEC Sodium 140 (135-145) mmol/L Potassium 6.1 H* (3.3-5.1) mmol/L Chloride 114 H (96-108) mmol/L Carbon Dioxide 9 L* (22-29) mmol/L Anion Gap 23 H (12-20) BUN 117 H (9-16) mg/dL Creatinine 3.46 H (0.5-1.4) mg/dL Estim Creat Clear Calc 24.9 Estimated GFR 13 Random Glucose 128 H (60-115) mg/dL Lactic Acid 5.4 H* (0.5-2.0) mmol/L Calcium 8.6 (8.4-10.2) mg/dL Magnesium (1.6-2.6) mg/dL Total Bilirubin 1.8 H (0.0-1.0) mg/dL Direct Bilirubin 1.2 H (0.0-0.5) mg/dL AST 727 H (5-31) U/L ALT 784 H (0-31) U/L Alkaline Phosphatase 220 H (39-117) U/L Total Creatine Kinase (26-140) U/L Troponin I High Sens (<3.5-17.0) ng/L B-Natriuretic Peptide 4327 H (<100) pg/mL Total Protein 5.5 L (6.5-8.0) g/dL Albumin 2.9 L (3.5-5.0) g/dL Urine Color Urine Appearance Urine pH (5.0-9.0) Ur Specific [place] (1.005-1.025) Urine Protein (Neg-Trace) mg/dL Urine Glucose (UA) (Negative) mg/dL Urine Ketones (Negative) mg/dL Urine Blood (Negative) Urine Nitrite (Negative) Ur Leukocyte Esterase (Negative) Urine RBC (0-2) /HPF Urine WBC (0-5) /HPF Ur Squamous Epith Cells (0-2) /HPF Urine Bacteria (None Seen) Hyaline Casts (0-2) /LPF Granular Casts Independent Interpretation I performed an independent interpretation of an: EKG and Plain X-Ray Interpretation: Atrial fibrillation with ventricular rate of 101 beats per minute poor progression of R-wave no acute STT wave changes no acute ischemia no acute dynamic ischemic changes Radiology Impression Discussion of test interpretation with radiology: I have reviewed the radiologist's reading. Radiologist Impression: Negative CT scan of the chest and cervical spine chest x-ray with possible pulmonary edema/with bilateral nonspecific shadows in the lung Critical Care Time Critical Care Time Critical Care Time: Yes Total Critical Care Time: 65 Attestation: Time is exclusive of separately billable procedures. Time includes: direct patient care, patient reassessment, coordination of patient care, interpretation of data (laboratory data, pulse oximetry, arterial blood gases and chest xrays), review of patient's medical records, medical consultation and documentation of patient care. Procedures excluded from critical care time: central intravenous line placement and electrocardiography. Discharge Plan Discharge Clinical Impression: NSTEMI (non-ST elevated myocardial infarction), Acute renal failure due to rhabdomyolysis, Morbid obesity with BMI of 45.0-49.9, adult, Ischemic cardiomyopathy, Acute hyperkalemia, Acidosis, lactic, Atrial fibrillation with rapid ventricular response, Frequent falls Patient Disposition: Admitted As Inpatient Interventions: Admission Worksheet (ED) Last Done: 11/09/24 00:45 Discharge Date/Time: 11/09/24 01:01
[2024-11-08 20:20] LABS: Potassium 6.8 mmol/L (3.3-5.1); Troponin-I High Sensitivity 27302.1 ng/L (<3.5-17.0)
[2024-11-08 20:24] LABS: Blood Urea Nitrogen 118 mg/dL (9-16)
[2024-11-08] MEDS: Calcium Gluconate/NaCl,Iso-Osm 2 GM/100 ML PLAST..BAG IV (20:47)
[2024-11-08 20:58] LABS: INTERNATIONAL NORM RATIO 2.2 (0.9-1.1); Prothrombin Time 24.7 SEC (10.9-12.4)
[2024-11-08 20:59] LABS: Partial Thromboplastin Time 29.3 SEC (26.0-36.8)
[2024-11-08] MEDS: Heparin Sodium,Porcine/1/2NS 25,000 UNIT/250 ML IV.SOLN 10 UNIT IVCONT (21:32)
[2024-11-08 21:53] LABS: Appearance Urine Cloudy; Glucose Urine UA Negative (Negative); PH 5.0 (5.0-9.0); Specific Gravity - Urine 1.020 (1.005-1.025); UMIC TRIGGER UACC YES
[2024-11-08 22:05] LABS: UACC Culture Trigger YES
--- NOTE | 2024-11-08 22:42 | PC.NURSE ---
pt getting increasingly restless and harder to redirect at times. moves during lab draws, BP checks and wont keep arms straight for IV infusions
[2024-11-08 23:16] LABS: B Type Natriuretic Peptide 4327 pg/mL (<100)
[2024-11-08] MEDS: Amiodarone/Dextrose 150 MG/100 ML PLAST..BAG 600 MG IV (23:22)
[2024-11-08] MEDS: Albumin Human 25 % 100 ML 133.33 ML IV (23:42)
--- NOTE | 2024-11-08 23:52 | PM.CCHP ---
History of Present Illness Date of Service: 11/08/24 Attending physician on admission: Isaac Browning Chief Complaint: Acute Septic shock, UTI, TUSHAR, Rhabdo, Afib RVR HPI: ?68-year-old morbidly obese female with underlying history of coronary artery disease, CHF with EF of 30-35% and ischemic cardiomyopathy, atrial fibrillation not on blood thinners, but the patient was scheduled to see her morbid obesity, chronic kidney disease stage 3 with baseline creatinine of 1.3, asthma, depression, anxiety, vitamin-D deficiency, GERD, hypertension, hyperlipidemia, diabetes, stroke 1 year ago without residual deficits.? Presented to the emergency room via EMS after her son found her on the floor around urine, patient has stated she has fallen 3 times over the past 3 days; many times she has been able to get up on her own with the assistance of chair or her walker but today he found her again around some urine and noted that she had not been able to get herself up at which point he called the ambulance. Emergency room, the patient was noted to be normotensive however tachycardic and with the atrial fibrillation heart rate in the 120s to 130s but otherwise normotensive.? Her workup reveal a white count of 0.3, H and H of 12.4 and 38.2 respectively, platelets 78.? Sodium 139, potassium 6.8, chloride 110, carbon dioxide 11, anion gap 25, BUN 118, creatinine 3.64, glucose 180.? SVT and ALT 838 and a 63 respectively, total CK 1066, troponin 27 302.? Venous blood gas 7.27, pCO2 22, PO2 70, HC03 10.? Urinalysis although it appears contaminated does have leukocyte esterase and bacteria with the epithelial cells.? She had a head CT and cervical spine CT which shows no abnormalities.? Chest x-ray showed pulmonary opacities which may reflect pulmonary edema with superimposed chronic lung disease.? The patient was given 2 L of IV fluids, insulin, D50, Lokelma, calcium gluconate, 20 mg of Cardizem without much improvement of her heart rate. ?The patient's laboratories were repeated and showed slight improvement of her potassium, lactic acid 5.4 subsequently going down to 4.7.? Overall the patient's laboratories do not seem to improve much.? Subsequently the patient became hypotensive, albumin and vasopressors started, the patient will be transferred to the ICU for further care. PMFSH Past Medical History Medical History NSTEMI (non-ST elevated myocardial infarction) Asthma exacerbation Asthma Morbid obesity with BMI of 50.0-59.9, adult Morbid obesity with BMI of 45.0-49.9, adult Depression Panic disorder with agoraphobia Seasonal allergic rhinitis due to pollen Vitamin D deficiency GERD without esophagitis Pure hypercholesterolemia Diabetes mellitus Benign essential hypertension Anxiety Family History Family History Father No problems noted. Mother Stroke Surgical History Surgical History History of total abdominal hysterectomy Social History Social History Household Members: Children Housing: House Do you presently have visiting nurse or other home services: No Alcohol intake: never Patient Tobacco Use Status: Former Tobacco user e-Cigarette/Vaping Use: Never Used Second Hand Smoke Exposure: Yes service: No Current occupational status: retired and disabled Cognitive needs: No Hearing needs: No Vision needs: Yes Meds Allergies Allergy/AdvReac Type Severity Reaction Status Date / Time No Known Allergies Allergy Verified 11/08/24 18:54 Active Medications: Current Medications Heparin Sodium (Porcine) (Heparin Sodium,Porcine 5,000 Unit/Ml Vial) 5,800 unit 40 unit/kg (5800 unit) IVPUSH PROTOCOL BOLUS PRN; Protocol PRN Reason: 40 unit/kg - Heparin Protocol Heparin Sodium (Porcine) (Heparin Sodium,Porcine 5,000 Unit/Ml Vial) 10,000 unit IVPUSH PROTOCOL BOLUS PRN; Protocol PRN Reason: 80 unit/kg - Heparin Protocol Heparin Sodium/Sodium Chloride (Heparin Sodium,Porcine/1/2ns) 25,000 unit in 250 mls @ 0 mls/hr IVCONT .Q0M HERNANDO; Protocol Last Admin: 11/08/24 21:32 Dose: 6.93 units/kg/hr, 10 mls/hr Amiodarone HCl 900 mg/ Sodium (Chloride) 518 mls @ 34.533 mls/hr IVCONT .Q15H1M HERNANDO; Protocol Albumin Human (Kedbumin 25 %) 100 mls @ 133.333 mls/hr IV Q1H HERNANDO Stop: 11/09/24 00:59 Last Admin: 11/08/24 23:42 Dose: 133.33 mls/hr Norepinephrine Bitartrate (Levophed) 8 mg in 250 mls @ 0 mls/hr IVCONT .Q0M HERNANDO; Protocol Norepinephrine Bitartrate (Levophed) 8 mg in 250 mls @ 0 mls/hr IVCONT .Q0M HERNANDO; Protocol Physical Exam Vital Signs: Vital Signs: Last Vital Signs Temp 97.5 F 11/08/24 20:52 Pulse 139 H 11/08/24 23:24 Resp 18 11/08/24 23:24 BP 68/44 L 11/08/24 23:42 Pulse Ox 95 11/08/24 23:24 O2 Del Method Nasal Cannula 11/08/24 23:24 O2 Flow Rate 4 11/08/24 23:24 BMI result Body Mass Index 45.6 Initial sepsis exam done at 20 seen in the ER General:? Morbidly obese Alert oriented x3 no acute distress. No accessory muscle usage.? Following all commands. Skin:? There is a significantly large area of skin breakdown, erythema and dermatitis consistent with a fungal rash all throughout the lower abdomen, pelvis, groin area.? HEENT:? Head is normocephalic, atraumatic, pupils equal. Buccal mucosa is dry. Neck is supple without lymphadenopathy. Cardiac:? Irregularly irregular 125 beats per minute. Pulmonary:? Diminished lung sounds bilaterally with no wheezing.? There is bilateral crackles at the bases.? No rhonchi. Abdomen:? Protuberant, positive bowel sounds in all 4 quadrants.? Soft, nontender, no rebound or guarding.? Lower abdomen rash as above noted. Musculoskeletal:? Moving all 4 extremities upon request a major joints, there is no crepitus or tenderness.? The strength is 5/5 bilaterally and throughout all 4 extremities.? There is 2+ pitting edema of the bilateral legs up to the tibial plateau , no calf tenderness , no leg asymmetry.? Gait not assessed at this point. Neurologic:? As above.? No focal deficits noted. Vascular:? 2+ pulses upper and Left lower extremities distally, right lower extremity has some discoloration, bluish coloration to the toes and is cooler than the left.? There is a strong 2+ pulses on the dorsal pedal is with Doppler.? Less than 2nd capillary refill of fingers and toes bilaterally upper and left lower extremity.? 2nd capillary refill of the toes of the right foot. Results Labs 11/09/24 03:23 11/09/24 10:19 Labs: Laboratory Results - last 24 hr 11/08/24 11/08/24 11/08/24 19:27 20:43 21:43 MCV 84.1 MCH 27.3 MCHC 32.5 RDW 16.1 H Plt Count 78 L D MPV 12.4 H Immature Gran % (Auto) 0.2 Neut % (Auto) 89.1 H Lymph % (Auto) 2.4 L [place] % (Auto) 8.2 Eos % (Auto) 0.0 Baso % (Auto) 0.1 Lymph # (Auto) 0.3 L [place] # (Auto) 1.0 Eos # (Auto) 0.0 Baso # (Auto) 0.0 Abs Immat Gran (auto) 0.03 Absolute Neuts (auto) 10.9 H Absolute Nucleated RBC 0.220 H Nucleated RBC % (auto) 1.8 H Smear Tech's Comments VERIFIED PT 24.7 H D INR 2.2 H APTT 29.3 Anion Gap 25 H Estim Creat Clear Calc 23.6 Estimated GFR 12 Random Glucose 180 H Lactic Acid Calcium 9.1 Magnesium 2.7 H Total Bilirubin 2.0 H AST 831 H ALT 863 H Alkaline Phosphatase 244 H Total Creatine Kinase 1066 H B-Natriuretic Peptide Total Protein 5.8 L Albumin 3.3 L Urine Color Dark Yellow Urine Appearance Cloudy Urine pH 5.0 Ur Specific [place] 1.020 Urine Protein 100 (2+) H Urine Glucose (UA) Negative Urine Ketones Trace Urine Blood Small (1+) H Urine Nitrite Negative Ur Leukocyte Esterase Small (1+) H Urine RBC 0-2 Urine WBC 0-5 Ur Squamous Epith Cells 6-10 Urine Bacteria 4+ Hyaline Casts >20 Granular Casts Present 11/08/24 22:51 MCV MCH MCHC RDW Plt Count MPV Immature Gran % (Auto) Neut % (Auto) Lymph % (Auto) [place] % (Auto) Eos % (Auto) Baso % (Auto) Lymph # (Auto) [place] # (Auto) Eos # (Auto) Baso # (Auto) Abs Immat Gran (auto) Absolute Neuts (auto) Absolute Nucleated RBC Nucleated RBC % (auto) Smear Tech's Comments PT INR APTT Anion Gap Estim Creat Clear Calc Estimated GFR Random Glucose Lactic Acid 5.4 H* Calcium Magnesium Total Bilirubin AST ALT Alkaline Phosphatase Total Creatine Kinase B-Natriuretic Peptide 4327 H Total Protein Albumin Urine Color Urine Appearance Urine pH Ur Specific [place] Urine Protein Urine Glucose (UA) Urine Ketones Urine Blood Urine Nitrite Ur Leukocyte Esterase Urine RBC Urine WBC Ur Squamous Epith Cells Urine Bacteria Hyaline Casts Granular Casts Assessment and Plan (1) Septic shock: Status: Acute Plan ASSESSMENT : 1. Acute septic shock 2. Suspected urinary tract infection 3. Acute secondary cardiorenal versus renal cardiac syndrome 4. Acute kidney injury 5. Acute hyperkalemia 6. Acute NSTEMI versus troponin leak 7. Acute rhabdomyolysis 8. Acute metabolic and lactic acidosis (these last maybe worse due to metformin intake) 9. Acute shocked liver syndrome 10. Acute Illness related thrombocytopenia 11. New onset Atrial fibrillation with rapid ventricular response 12. Acute diastolic CHF exacerbation with known EF of 30-35% in the setting of ischemic cardiomyopathy 13. Hypoalbuminemia 14. Diffuse lower abdomen and pelvis candidiasis PLAN OF CARE: The patient will be admitted to the ICU, monitor vital signs, I's and O's, she is already fluid overloaded giving her more IV fluids on top of the 2 L she got in the emergency room would be detrimental to her health, we will give her albumin infusions and start her on Levophed; amiodarone load for rate control, if liver function improves with increased perfusion we will continue with amiodarone drip, otherwise we will place her on Cardizem.? The patient did not receive antibiotics in the ER, we will start her on Rocephin as I do think she has a urinary tract infection even though the urine sample appears contaminated, continue to monitor laboratories and Chem 7, insulin, D50 and Lokelma, sodium bicarb drip while diuresing her with Lasix drip.? The patient is already on a heparin drip due to possible NSTEMI and new onset AFib, follow CPK, monitor liver function, H and H and platelets.? Echo in the morning, nephrology and cardiology consult.? We will also start her on aspirin full dose followed by daily 81 mg. ?Arterial US RLExt. GI PROPHYLAXIS: ?IV PPI DVT PROPHYLAXIS:? Heparin drip Follow-up sepsis exam done at 01:25 am on 11/09/2024 arrived from the ER and CAT scan to the unit. General:? Morbidly obese Alert oriented x3 no acute distress. No accessory muscle usage.? Following all commands. Skin: ?As above, no changes Cardiac:? Irregularly irregular 110 beats per minute Pulmonary:? Diminished lung sounds, bibasilar crackles.? No rhonchi, no wheezes. Neurologic:? As above.? No focal deficits noted. Vascular:? 2+ pulses upper and Left lower extremities distally, right lower extremity has some discoloration, bluish coloration to the toes and is cooler than the left.? There is a strong 2+ pulses on the dorsal pedal is with Doppler.? Less than 2nd capillary refill of fingers and toes bilaterally upper and left lower extremity.? 2nd capillary refill of the toes of the right foot Overall the patient looks better than during the 1st encounter. ?She is still has minimal urine production.? Patient will be diuresed. ?Abdominal CT shows free fluid nonspecific in the upper abdomen and with questionable pancreatitis versus pyelonephritis.? The patient was covered with Rocephin, we will add Zithromax as the chest CT shows bibasilar atelectasis versus pneumonitis. ?Access has been an issue, initially the patient refused a central line in as me to talk to her son, unable to reach family members message is left. 02:30 the patient decompensated again, she continues to become hypotensive requiring higher dose of Levophed. ?I have increase sodium bicarb drip, and given the medical necessity attempted right central line however was not able to cannulate the wire as the patient kept moving, unable to sedate her at this point given low blood pressure and risk of imminent respiratory depression with sedatives. ?Given that the patient is not producing any urine I will challenge her with some more fluid even though she does appear fluid overloaded but we have administered Bumex with the hopes of increasing her blood pressure, achieve better perfusion. 0320, I was able to discuss the case with the patient's son who has come into the hospital, at this point I am concerned that the patient will continue to decompensate.? We discussed the need of a central line and he agrees.? We will use Versed low-dose for mild sedation with respiratory at bedside in case of respiratory decompensation in the need of intubation, he is aware and agrees. 0400 left IJ central line was placed under mild sedation with Versed. Upon review of the x-ray the tip of the catheter appears to be curling back into the who has right subclavian vein. It will be reposition. 05:00, the patient continues to decompensate, son at bedside is aware and agrees with the intubation the patient is now having Kussmaul respirations. I am concerned that the patient at this point may need dialysis. I have discussed the above with Dr. Browning who agrees in at this point I will replace the left IJ central line with a dialysis catheter; we will discontinue Bumex drip as the patient will be dialyzed 1st thing this morning. This patient counter and care had a high probability of a clinically significant, sudden, or life threatening deterioration of this patient's condition which required my full and direct attention, intervention and personal management. Critical care time used for critical evaluation of this patient, diagnosis, treatment and coordination of care, review her records and documentation TOTAL CRITICAL CARE TIME? 150 MIN . discussion and coordination with consultants, completely separate from any procedures performed. Patient's care was discussed in detail with Dr. Browning who is aware of all the above as well as the plan of care for this patient.
[2024-11-08 23:57] LABS: Venous Blood Gas Refer to POC result
--- NOTE | 2024-11-08 23:59 | PM.SEPBOLA4 ---
Sepsis Bolus Exclusion Sepsis Bolus Exclusion CHF/Renal Failure Date of Occurrence: 11/08/24 Time of Occurrence:: 23:30 This patient met severe sepsis criteria due to the following condition(s):: Hypotension, Lactate>=4mmol/L and Documentation of septic shock In my clinical judgement the administration of 30 ml/kg of crystalloid would be detrimental to this patient due to the patient's following conditions:: NYHA class III or IV Heart Failure(symptoms with low exertion or rest) and Stage III or IV Chronic Kidney Disease (GFR<30) Replace the 30 mls/kg with (Zero amount not acceptable and all fluids for severe sepsis must be given at GREATER than 125 mls/hr) *Note: One of the carter must be documented Colloids amount given in mls:: 400 At a rate of (must be > 125 cchr):: 133
[2024-11-09] VITALS (47 sets, daily range): BP systolic 73–130; BP diastolic 27–83; PULSE 74–125; RESP 18–30; TEMP 32–37.1; O2SAT 92–98; BMI 45.6
[2024-11-09 00:01] LABS: VBG HCO3 10 mmol/L (22-26); VBG O2 % Saturation 91.0 %
[2024-11-09 00:04] LABS: Alanine Aminotransferase 784 U/L (0-31); Albumin Level 2.9 g/dL (3.5-5.0); Alkaline Phosphatase 220 U/L (39-117); Anion Gap 23 (12-20); Aspartate Amino Transferase 727 U/L (5-31); Blood Urea Nitrogen 117 mg/dL (9-16); Calcium 8.6 mg/dL (8.4-10.2); Carbon Dioxide 9 mmol/L (22-29); Chloride 114 mmol/L (96-108); Creatinine Clr Calc Pharmacy 24.9; Estimated Glomerular Filt Rate 13; Potassium 6.1 mmol/L (3.3-5.1); Sodium 140 mmol/L (135-145); Total Protein 5.5 g/dL (6.5-8.0)
--- NOTE | 2024-11-09 00:05 | PC.NURSE ---
WOOD BUCKER at bedside to assume care of pt
[2024-11-09 00:21] LABS: Troponin-I High Sensitivity 28681.6 ng/L (<3.5-17.0)
[2024-11-09 00:55] LABS: Reflex Lactate? Lactic Acid Added
[2024-11-09] MEDS: Albumin Human 25 % 100 ML 133.33 ML IV ×3 (01:32→03:06)
[2024-11-09 01:50] LABS: ~Lactic Acid-LAB USE ONLY 4.7 mmol/L (0.5-2.0)
[2024-11-09] MEDS: Sodium Bicarbonate 8.4% 150 MEQ in Dextrose 5 % 850 ML 100 MEQ IV (01:58)
[2024-11-09] MEDS: Bumetanide 1 MG/4 ML VIAL IVPUSH (02:09)
[2024-11-09 03:29] LABS: Reflex Lactate? 2 Y
[2024-11-09 03:33] LABS: MANUAL DIFF FLAG NO
[2024-11-09 03:35] LABS: Hematocrit 36.6 % (37.0-47.0); Hemoglobin 11.4 g/dl (12.0-16.0); Imm Gran Abs Auto 0.03 X10*3/uL (0.00-0.03); Imm Gran Pct Auto 0.2 % (0.0-0.4); Lymphocytes Absolute Auto 0.4 X10*3/uL (1.2-4.9); Mean Corpuscular HGB Conc 31.1 g/dl (31.0-35.0); Mean Corpuscular Hemoglobin 27.2 pg (27.0-33.0); Mean Corpuscular Volume 87.4 fL (80.0-98.0); NRBC Abs Auto 0.330 X10*3/uL (0.0-0.012); NRBC Pct Auto 2.6 /100WBC (0.0-0.2); Platelet Count 121 X10*3/uL (160-400); Red Blood Count 4.19 X10*6/uL (4.20-5.50); White Blood Count 12.5 X10*3/uL (4.8-10.8)
[2024-11-09 03:39] LABS: INTERNATIONAL NORM RATIO 2.6 (0.9-1.1); Prothrombin Time 29.6 SEC (10.9-12.4)
[2024-11-09 03:42] LABS: PTT Heparin Drip 101.4 SEC (53-77.9)
[2024-11-09 03:52] LABS: Troponin-I High Sensitivity 28140.3 ng/L (<3.5-17.0)
[2024-11-09 03:53] LABS: Alanine Aminotransferase 817 U/L (0-31); Albumin Level 4.6 g/dL (3.5-5.0); Alkaline Phosphatase 237 U/L (39-117); Anion Gap 25 (12-20); Aspartate Amino Transferase 775 U/L (5-31); Blood Urea Nitrogen 116 mg/dL (9-16); Calcium 8.9 mg/dL (8.4-10.2); Carbon Dioxide 9 mmol/L (22-29); Chloride 113 mmol/L (96-108); Creatinine Clr Calc Pharmacy 24.1; Estimated Glomerular Filt Rate 13; Magnesium 2.5 mg/dL (1.6-2.6); Potassium 6.0 mmol/L (3.3-5.1); Sodium 141 mmol/L (135-145); Total Protein 7.0 g/dL (6.5-8.0)
--- NOTE | 2024-11-09 04:20 | W.PM.CCHP ---
Procedures Date of Service Date of Service: 11/09/24 Central Line Placement Left IJ: Central Line Comments: Verbal consent obtained from the patient and the patient's son who is at bedside Time out performed: Yes Sterile Technique Used: Yes Patient placed on monitor/pulse ox: Yes prep: mask, gown, gloves and other (Cap) Local anesthesia used: other anesthetic (Versed sedation 4 mg given the patient has restlessness, anxiety approved by son with respiratory therapy at bedside) Amount of anesthesia used (ml): 4 Ultrasound used for placement: Yes Central line lumen inserted: triple (20 cm) Post procedure: sutured in place, good blood return, all ports aspirated, flushed, capped and sterile dressing applied Post procedure x-ray: tip of catheter in good position and no pneumothorax seen Patient tolerated procedure: well Complications: catheter malposition (The position of the catheter is not going into the CAJ, however it seems to be curling back up into the subclavian but still into a central vessel.)
[2024-11-09 04:26] LABS: VBG HCO3 10 mmol/L (22-26); VBG O2 % Saturation 59.0 %
[2024-11-09 04:29] LABS: Venous Blood Gas Refer to POC result
[2024-11-09 05:09] LABS: ABG HCO3 9 mmol/L (22-26); ABG O2 % Saturation 97.0 %
[2024-11-09 05:18] LABS: ABG Refer to POC result
[2024-11-09 05:32] LABS: Reflex Lactate? Lactic Acid Added
--- NOTE | 2024-11-09 06:03 | W.PM.CCHP ---
Procedures Date of Service Date of Service: 11/09/24 Intubation Consent for Procedure: Elective - informed consent obtained (Given ongoing deterioration, the patient is not protecting her airway, now having Kussmaul respirations. Discussed this with her son and he agrees to intubation.) Time out performed: Yes Sedative: propofol Mg given: 100 Paralytic: rocuronium Mg given: 50 ET tube size: 7 ET tube uncuffed: Yes Tube secured depth (cm): 23 Tube secured location: lips Tube placement confirmation: visualized tube passing through cords, equal breath sounds bilaterally, no breath sounds over epigastrium and confirmation by capnometry Patient tolerated procedure: well Intubation complications: none and other (Post intubation x-ray shows end of the tube 2.5 cm above the [place].)
--- NOTE | 2024-11-09 06:12 | W.PM.CCHP ---
Procedures Date of Service Date of Service: 11/09/24 Central Line Placement Left IJ: Consent for Procedure: Elective - informed consent obtained (The need of replacing the catheter for a hemodialysis catheter was discussed with the patient's son who agrees.) Time out performed: Yes Sterile Technique Used: Yes Patient placed on monitor/pulse ox: Yes prep: mask, gown, gloves and other (Cap) Central line prep: Chlorhexidine scrub Central line lumen inserted: double (Double-lumen with a pigtail hemodialysis catheter placed by insert in the wire into the previous central line catheter, catheter which was later on removed and the wire was inserted backwards into the hemodialysis catheter tip for advancement. This was easy and successful.) Post procedure: sutured in place, good blood return, all ports aspirated, flushed, capped and sterile dressing applied Post procedure x-ray: tip of catheter in good position and no pneumothorax seen Patient tolerated procedure: well and no complications Complications: none
[2024-11-09 06:38] LABS: ~Lactic Acid-LAB USE ONLY 6.4 mmol/L (0.5-2.0)
--- NOTE | 2024-11-09 07:00 | CA_ITS ---
Transthoracic Echocardiogram Patient (Last, First, Middle): Estrella Albright, Gender: Female Date of : 1955 Age: 68 Procedure Date: 11/09/2024 Procedure Type: Transthoracic Echocardiogram Location: [facility] [place] Height: 177.8 cm Weight: 143.79 kg BSA: 2.54 m2 Heart Rate: bpm BP: 98 / 60 mmHg Supervisor Of Guidance And Testing: SB Referring MD: Rizwan MONDRAGON Symptoms: chf cardiogenic shock Study Quality: Adequate ECG Rhythm: Atrial Fibrillation Conclusions: - The left ventricular systolic function is severely decreased. The calculated ejection fraction is 10% by biplane method. - Overall, probable paradoxical, low-flow, low gradient severe aortic stenosis. - There is mild to moderate mitral valve regurgitation. Findings Procedure Information Contrast agent, definity, is being given per protocol without apparent complications. Left Ventricle Severely increased left ventricular cavity size. There is normal left ventricular wall thickness. The left ventricular systolic function is severely decreased. The calculated ejection fraction is 10% by biplane method. There is severe global hypokinesis. Diastolic function is indeterminate on the basis of available data. Right Ventricle There is moderate to severely decreased right ventricular systolic function. Atria The left atrium is moderately dilated. The right atrium is normal in size. Aortic Valve There is severe calcification of the aortic valve. The peak aortic velocity is 2.44 m/s with a calculated peak gradient of 24 mmHg. The mean gradient is 14 mmHg. The aortic valve area is 1.02 cm2. There is no aortic valve regurgitation. Dimensionless index 0.17. Stroke volume index 14 mL/m2. Overall, probable paradoxical, low-flow, low gradient severe aortic stenosis. Mitral Valve There is moderate mitral annular calcification. There is mild to moderate mitral valve regurgitation. There is no mitral valve stenosis. Pulmonic Valve There is mild pulmonic valve regurgitation. Tricuspid Valve There is mild tricuspid valve regurgitation. Mild pulmonary hypertension is present. Great Vessels The asc aorta is normal in size. Small plaque is seen in the sino tubular ridge. Venous The inferior vena cava is dilated and does not collapse with inspiration. (on ventilator). Pericardium/Pleural There is no evidence of pericardial effusion. Prior Study Comparison Changes noted compared to prior study dated: 05/06/2024. LVEF is lower. Progression of aortic stenosis. Measurements 2D Linear Measurements IVSd: 0.99 0.6-0.9/0.6-1.0 cm LVIDd: 7.08 3.9-5.3/4.2-5.9 cm LVIDd Index: 2.79 2.4-3.2/2.2-3.1 cm/m2 LVIDs: 6.77 2.0-3.6 cm LVPWd: 0.83 0.7-1.1 cm Ao Root: 2.70 2.1-3.5 cm LA Diam: 5.10 2.7-3.8/3.0-4.0 cm LAIDs Index: 2.01 1.5-2.3 cm/m2 LV Mass: 363.83 67-162/88-224 g LV Mass Index: 143.24 43-95/49-115 g/m2 LVOT Diam: 2.60 3.0+(-)1.3 cm 2D Systolic Function EF 4C: 8.98 >55% EF 2C: 9.78 >55% EF BiP: 9.87 >55% Mitral Valve MV Pk E: 1.14 Aortic Valve AoV Pk Cornel: 2.44 AoV Mn Cornel: 1.69 AoV VTI: 0.36 AoV Pk Grad: 24.00 Aov Mn Grad: 14.00 MERVIN Cont.VTI: 1.02 LVOT LVOT Pk Cornel: 0.42 LVOT Mn Cornel: 0.32 LVOT VTI: 0.07 LVOT Pk Grad: 1.00 LVOT Mn Grad: 0.00 LVOT Diam: 2.60 LVOT Area: 5.31 Diastolic Function MV Pk E: 1.14 Right Ventricle TAPSE (mm): 8.00 TVS' Cornel: 8.00 Tricuspid Valve TR Pk Cornel: 2.49 TR Pk Grad: 25.00 RA Press: 15.00 RVSP: 40.00 Great Vessels Aorta Ao Root-2D: 2.70 2.0-3.7 cm Ao Asc: 3.70 2.1-3.4 cm Pulmonary Valve PV Pk Cornel: 0.59 Peak PV Grad: 1.00 W[place] Pk Cornel: 2.58 Updated in Other Vendor System with Status of Final Florencio Lima MD electronically signed on 11/09/2024 11:49:21 AM with status of Final
[2024-11-09] MEDS: 0.9 % Sodium Chloride Flush 3 ML SYRINGE IVFLUSH (07:23)
--- NOTE | 2024-11-09 07:58 | PC.RT ---
Alar nasal SpO2 sensor placed on left nare
--- NOTE | 2024-11-09 08:09 | PC.NURSE ---
Pt admitted to ICU, room 254, from ED at approx 0100. Upon initial assessment- pt A&Ox3, vague to situation, GARCIA, admittedly anxious. Levophed/heparin gtts infusing on arrival.? Upon?admission, right lower extremity appeared dusky, cool to touch. Pulses obtained and marked via doppler - Rizwan MONDRAGON made aware. At approx 4am assessment, pulse unable to be obtained via doppler on right ext -arterial duplex ordered for this morning.? Obtained additional?PIV access upon admission - bicarb, albumin, amio infusions started per MAR. D/t increasing vasopressor requirements at approx 0200, Giovanny MONDRAGON attempted?TLC insertion to R IJ x2 without success r/t patient intolerance/agitation-- procedure aborted.? ALANNA Baltazar aware?of pt status, patient's son called by ALANNA for goals of care discussion. Son arrived to bedside at approx 0330. At approx 0400, additional attempts made to TLC insertion to left IJ with success, given versed 4mg?prior to procedure to reduce agitation and tolerate procedure. Post TLC insertion, patient with increasing restlessness, anxiety, and becoming more lethargic, confused but redirectable. ALANNA Baltazar made aware of mental status.? Decision to intubate per ALANNA Baltazar at approx 0530 for airway protection and worsening mental status. TLC noted to be not in place (see report),?exchanged over guidewire for sanjuanaurkar, due to need for dialysis - lines, tubes confirmed by pCXR.? PA aware of all critical labs, values, and meds titrated. Cardizem drip titrated outside order parameter per PA (see MAR for titrations) - uncontrolled afib RVR, attempt for rate control. Family aware of patient status/plan of care. See EMR/flow sheet for further details.Bed locked in lowest position, bed alarm on, bedside report given to oncoming RN.
[2024-11-09 08:18] LABS: Reflex Lactate? 2 Y
[2024-11-09] MEDS: Chlorhexidine Gluc Oral Rinse 15 ML MOUTHWASH BUCCAL ×2 (08:19→15:24)
[2024-11-09 08:33] LABS: Albumin Level 4.0 g/dL (3.5-5.0); Alkaline Phosphatase 243 U/L (39-117); Anion Gap 26 (12-20); Aspartate Amino Transferase 1621 U/L (5-31); Blood Urea Nitrogen 115 mg/dL (9-16); Calcium 8.4 mg/dL (8.4-10.2); Carbon Dioxide 10 mmol/L (22-29); Chloride 110 mmol/L (96-108); Creatinine Clr Calc Pharmacy 25.2; Estimated Glomerular Filt Rate 13; Potassium 5.7 mmol/L (3.3-5.1); Sodium 140 mmol/L (135-145); Total Protein 6.1 g/dL (6.5-8.0)
[2024-11-09 08:52] LABS: Alanine Aminotransferase 1223 U/L (0-31)
[2024-11-09] MEDS: Sodium Bicarbonate 8.4% 150 MEQ in Dextrose 5 % 850 ML IV ×2 (09:00→16:18)
--- NOTE | 2024-11-09 09:45 | P.CONCA_ITS ---
History of Present Illness History of Present Illness Date of Service: 11/09/24 Chief complaint: Sepsis UTI Acute Rhabdo New Afib RVR Narrative: This is a cardiology consultation regarding question of NSTEMI/cardiorenal syndrome/CHF. I had seen her in consultation last year. Essentially, patient with many comorbidities including obesity, diabetes, hypertension who presented with left-sided weakness and in that context was diagnosed as TIA. During the same visit, she was also diagnosed with cardiomyopathy with ejection fraction in the 30s. She had wall motion abnormalities as well as aortic stenosis. Subsequently, underwent cardiac catheterization as an outpatient but that did not show any significant CAD. She had been following with our nurse practitioner and last visit was in August of this year. According to that note, she had been actually doing quite well. She had come in a wheelchair for that visit. Had describes some lightheadedness and that was thought to be from low blood pressure. Compliant with medications then. Plan then was refer her for ICD placement due to cardiomyopathy. In the current hospitalization, patient is now intubated. Discussed with Dr. Virgen and also reviewed the chart. It appears that the patient was found on the floor around uterine. Apparently she is followed in a few times over the last 3 days. Many times, she had been able to get up on her own but this time she could not and hence ambulance was called. Found to be tachycardic, in atrial fibrillation rapid rate. She was also found to have elevated renal function as well as liver function abnormalities. Elevated troponins. Elevated lactic acid. Then hypotensive and required albumin/pressors. Transferred to ICU. The same, she got intubated. Review of Systems 2 Review of Systems: Unable to obtain review of systems as she is intubated. [facility] Past Medical History Medical History NSTEMI (non-ST elevated myocardial infarction) Asthma exacerbation Asthma Morbid obesity with BMI of 50.0-59.9, adult Morbid obesity with BMI of 45.0-49.9, adult Depression Panic disorder with agoraphobia Seasonal allergic rhinitis due to pollen Vitamin D deficiency GERD without esophagitis Pure hypercholesterolemia Diabetes mellitus Benign essential hypertension Anxiety Family History Family History Father No problems noted. Mother Stroke Surgical History Surgical History History of total abdominal hysterectomy Social History Social History Household Members: Children Housing: House Do you presently have visiting nurse or other home services: No Alcohol intake: never Patient Tobacco Use Status: Former Tobacco user e-Cigarette/Vaping Use: Never Used Second Hand Smoke Exposure: Yes Use of substances other than those prescribed or required for medical reasons: No Advance Directives: No Advance Directives Information Provided: Yes Advance Directives on File: No Recently lost weight without trying: No Nutrition Risks: No Nutritional Risk Patient : No service: No Current occupational status: retired and disabled Cognitive needs: No Hearing needs: No Vision needs: Yes Meds Allergies Allergy/AdvReac Type Severity Reaction Status Date / Time No Known Allergies Allergy Verified 11/08/24 18:54 Active Medications: Current Medications Aspirin (Aspirin 81 Mg Tab.Chew) 81 mg PO DAILY [facility] Chlorhexidine Gluconate (Chlorhexidine Gluc Oral Rinse 15 Ml Mouthwash) 15 ml BUCCAL TID HERNANDO Last Admin: 11/09/24 08:19 Dose: 15 ml Heparin Sodium (Porcine) (Heparin Sodium,Porcine 5,000 Unit/Ml Vial) 5,800 unit 40 unit/kg (5800 unit) IVPUSH PROTOCOL BOLUS PRN; Protocol PRN Reason: 40 unit/kg - Heparin Protocol Heparin Sodium (Porcine) (Heparin Sodium,Porcine 5,000 Unit/Ml Vial) 10,000 unit IVPUSH PROTOCOL BOLUS PRN; Protocol PRN Reason: 80 unit/kg - Heparin Protocol Heparin Sodium/Sodium Chloride (Heparin Sodium,Porcine/1/2ns) 25,000 unit in 250 mls @ 0 mls/hr IVCONT .Q0M HERNANDO; Protocol Last Titration: 11/09/24 06:17 Dose: 3.93 units/kg/hr, 5.67 mls/hr Amiodarone HCl 900 mg/ Sodium (Chloride) 518 mls @ 34.533 mls/hr IVCONT .Q15H1M HERNANDO; Protocol Last Infusion: 11/09/24 02:37 Dose: Infused Norepinephrine Bitartrate (Levophed) 8 mg in 250 mls @ 0 mls/hr IVCONT .Q0M HERNANDO; Protocol Last Titration: 11/09/24 09:10 Dose: 0.4 mcg/kg/min, 108.15 mls/hr Diltiazem HCl 125 mg/ Sodium (Chloride) 125 mls @ 0 mls/hr IVCONT .Q0M [facility]; Protocol Last Titration: 11/09/24 08:30 Dose: 0 mg/hr, 0 mls/hr Vasopressin (Vasostrict) 20 unit in 100 mls @ 12 mls/hr IVCONT .Q8H20M [facility]; Protocol Last Admin: 11/09/24 06:19 Dose: Not Given Propofol (Diprivan) 1,000 mg in 100 mls @ 0 mls/hr IVCONT .Q0M [facility]NA[facility]; Protocol Last Admin: 11/09/24 08:25 Dose: 30 mcg/kg/min, 25.96 mls/hr Sodium Bicarbonate 150 meq/ (Dextrose) 1,000 mls @ 150 mls/hr IV .Q6H40M [facility] Nystatin (Nystatin Powder 15 Gm Bottle) 1 appl TOPICAL TID [facility]; Protocol Last Admin: 11/09/24 08:20 Dose: 1 appl Pantoprazole Sodium (Pantoprazole Sodium 40 Mg/10 Ml Vial) 40 mg IVPUSH BID@0630,1630 [facility] Last Admin: 11/09/24 06:18 Dose: 40 mg Sodium Chloride (0.9 % Sodium Chloride Flush 3 Ml Syringe) 3 ml IVFLUSH QSHIFT [facility] Last Admin: 11/09/24 07:23 Dose: 3 ml Home Medications ?Medication ?Instructions ?Recorded ?Confirmed ?Last Taken ?Type multivitamin 1 tab PO DAILY 02/26/20 05/0 05/2301/19/24 09:00 History ergocalciferol (vitamin D2) 1,250 1,250 mcg PO GARDNER@0900 01/19/24 08/27/24 01/19/24 09:00 History mcg (50,000 unit) capsule acetaminophen 500 mg tablet 500 mg PO BID PRN Pain 11/09/24 Unknown History furosemide 20 mg tablet 10 mg PO Q48H 11/09/2411/09 Unknown History furosemide 20 mg tablet 20 mg PO Q48H 11/09/2411/09 Unknown History ibuprofen 200 mg tablet 200 mg PO BID PRN Pain 11/0911/09/24 Unknown History omeprazole 20 mg capsule,delayed 20 mg PO DAILY@0630 0 11/09/24 Unknown History release Physical Exam 2 Vital Signs: Vital Signs: Last Vital Signs Temp 98.8 F 11/09/24 08:00 Pulse 76 11/09/24 09:10 Resp 21 H 11/09/24 09:00 BP 112/81 11/09/24 09:10 Pulse Ox 94 11/09/24 09:00 O2 Del Method Mechanical Ventil ation 11/09/24 09:00 O2 Flow Rate 6 11/09/24 05:00 FiO2 40 11/09/24 09:00 Oxygen Flow Rate 4 11/08/24 23:41 BMI result Body Mass Index 45.6 Const: Other: Intubated General: ill appearing Orientation/consciousness: patient oriented x3 HEENT: Other: Unremarkable Head: Yes normal to inspection Neck: Neck: Yes normal visual inspection Chest: Chest palpation & inspection: normal inspection of the chest Resp: Other: Difficult to examine because of body habitus as well as being intubated. Cardio: Palpation: normal PMI Heart sounds: S1 normal heart sound present, S2 normal heart sound present, no gallops, no murmurs and no rubs GI: Palpation (GI): Soft to palpation Back/Spine/Pelvis: Other: unremarkable Skin: Other: Possible fungal lesions in the groin area, umbilicus and also under the breasts. Neuro: General: patient oriented x3 Extrem: General: Yes normal to inspection Psych: Mental Status: mental status grossly normal Objective Labs and Meds 11/09/24 03:23 11/09/24 07:58 Lab results: Laboratory Results - last 24 hr 11/08/24 11/08/24 11/08/24 19:27 20:43 21:43 WBC 12.3 H RBC 4.54 Hgb 12.4 Hct 38.2 MCV 84.1 MCH 27.3 MCHC 32.5 RDW 16.1 H Plt Count 78 L D MPV 12.4 H Immature Gran % (Auto) 0.2 Neut % (Auto) 89.1 H Lymph % (Auto) 2.4 L [place] % (Auto) 8.2 Eos % (Auto) 0.0 Baso % (Auto) 0.1 Lymph # (Auto) 0.3 L [place] # (Auto) 1.0 Eos # (Auto) 0.0 Baso # (Auto) 0.0 Abs Immat Gran (auto) 0.03 Absolute Neuts (auto) 10.9 H Absolute Nucleated RBC 0.220 H Nucleated RBC % (auto) 1.8 H Smear Tech's Comments VERIFIED Smear Path Review SEE NOTE PT 24.7 H D INR 2.2 H APTT 29.3 aPTT Heparin Protocol O2 Saturation ABG pH at Pt Temp ABG pCO2 at Pt Temp ABG pO2 at Pt Temp ABG HCO3 ABG Base Excess (Actual) VBG pH VBG pCO2 VBG pO2 VBG HCO3 VBG O2 Saturation VBG Base Excess Sodium 139 Potassium 6.8 H* D Chloride 110 H Carbon Dioxide 11 L Anion Gap 25 H BUN 118 H Creatinine 3.64 H Estim Creat Clear Calc 23.6 Estimated GFR 12 Random Glucose 180 H Lactic Acid Lactic Acid F/U @ 2Hr Calcium 9.1 Phosphorus Magnesium 2.7 H Total Bilirubin 2.0 H Direct Bilirubin AST 831 H ALT 863 H Alkaline Phosphatase 244 H Total Creatine Kinase 1066 H Troponin I High Sens 88135.1 H* D B-Natriuretic Peptide Total Protein 5.8 L Albumin 3.3 L Urine Color Dark Yellow Urine Appearance Cloudy Urine pH 5.0 Ur Specific [place] 1.020 Urine Protein 100 (2+) H Urine Glucose (UA) Negative Urine Ketones Trace Urine Blood Small (1+) H Urine Nitrite Negative Ur Leukocyte Esterase Small (1+) H Urine RBC 0-2 Urine WBC 0-5 Ur Squamous Epith Cells 6-10 Urine Bacteria 4+ Hyaline Casts >20 Granular Casts Present 11/08/24 11/08/24 11/08/24 22:51 23:35 23:53 WBC RBC Hgb Hct MCV MCH MCHC RDW Plt Count MPV Immature Gran % (Auto) Neut % (Auto) Lymph % (Auto) [place] % (Auto) Eos % (Auto) Baso % (Auto) Lymph # (Auto) [place] # (Auto) Eos # (Auto) Baso # (Auto) Abs Immat Gran (auto) Absolute Neuts (auto) Absolute Nucleated RBC Nucleated RBC % (auto) Smear Tech's Comments Smear Path Review PT INR APTT aPTT Heparin Protocol O2 Saturation ABG pH at Pt Temp ABG pCO2 at Pt Temp ABG pO2 at Pt Temp ABG HCO3 ABG Base Excess (Actual) VBG pH VBG pCO2 VBG pO2 VBG HCO3 VBG O2 Saturation VBG Base Excess Sodium 140 Potassium 6.1 H* Chloride 114 H Carbon Dioxide 9 L* Anion Gap 23 H BUN 117 H Creatinine 3.46 H Estim Creat Clear Calc 24.9 Estimated GFR 13 Random Glucose 128 H Lactic Acid 5.4 H* Lactic Acid F/U @ 2Hr Calcium 8.6 Phosphorus Magnesium Total Bilirubin 1.8 H Direct Bilirubin 1.2 H AST 727 H ALT 784 H Alkaline Phosphatase 220 H Total Creatine Kinase Troponin I High Sens 39801.6 H* B-Natriuretic Peptide 4327 H Total Protein 5.5 L Albumin 2.9 L Urine Color Urine Appearance Urine pH Ur Specific [place] Urine Protein Urine Glucose (UA) Urine Ketones Urine Blood Urine Nitrite Ur Leukocyte Esterase Urine RBC Urine WBC Ur Squamous Epith Cells Urine Bacteria Hyaline Casts Granular Casts 11/08/24 11/09/24 11/09/24 23:58 01:24 03:23 WBC 12.5 H RBC 4.19 L Hgb 11.4 L Hct 36.6 L MCV 87.4 MCH 27.2 MCHC 31.1 RDW 16.2 H Plt Count 121 L D MPV 10.9 Immature Gran % (Auto) 0.2 Neut % (Auto) 87.4 H Lymph % (Auto) 3.2 L [place] % (Auto) 9.0 Eos % (Auto) 0.0 Baso % (Auto) 0.2 Lymph # (Auto) 0.4 L [place] # (Auto) 1.1 Eos # (Auto) 0.0 Baso # (Auto) 0.0 Abs Immat Gran (auto) 0.03 Absolute Neuts (auto) 10.9 H Absolute Nucleated RBC 0.330 H Nucleated RBC % (auto) 2.6 H Smear Tech's Comments Smear Path Review PT 29.6 H INR 2.6 H APTT aPTT Heparin Protocol 101.4 H D O2 Saturation ABG pH at Pt Temp ABG pCO2 at Pt Temp ABG pO2 at Pt Temp ABG HCO3 ABG Base Excess (Actual) VBG pH 7.27 L VBG pCO2 22 VBG pO2 70 VBG HCO3 10 L VBG O2 Saturation 91.0 VBG Base Excess -14.1 Sodium 141 Potassium 6.0 H* Chloride 113 H Carbon Dioxide 9 L* Anion Gap 25 H BUN 116 H Creatinine 3.57 H Estim Creat Clear Calc 24.1 Estimated GFR 13 Random Glucose 169 H Lactic Acid 6.6 H* Lactic Acid F/U @ 2Hr 4.7 H* Calcium 8.9 Phosphorus 5.0 H Magnesium 2.5 Total Bilirubin 2.3 H Direct Bilirubin 1.7 H AST 775 H ALT 817 H Alkaline Phosphatase 237 H Total Creatine Kinase Troponin I High Sens 50739.3 H* B-Natriuretic Peptide Total Protein 7.0 Albumin 4.6 Urine Color Urine Appearance Urine pH Ur Specific [place] Urine Protein Urine Glucose (UA) Urine Ketones Urine Blood Urine Nitrite Ur Leukocyte Esterase Urine RBC Urine WBC Ur Squamous Epith Cells Urine Bacteria Hyaline Casts Granular Casts 11/09/24 11/09/24 11/09/24 04:22 05:04 06:15 WBC RBC Hgb Hct MCV MCH MCHC RDW Plt Count MPV Immature Gran % (Auto) Neut % (Auto) Lymph % (Auto) [place] % (Auto) Eos % (Auto) Baso % (Auto) Lymph # (Auto) [place] # (Auto) Eos # (Auto) Baso # (Auto) Abs Immat Gran (auto) Absolute Neuts (auto) Absolute Nucleated RBC Nucleated RBC % (auto) Smear Tech's Comments Smear Path Review PT INR APTT aPTT Heparin Protocol O2 Saturation 97.0 ABG pH at Pt Temp 7.19 L* ABG pCO2 at Pt Temp 24 L ABG pO2 at Pt Temp 107 ABG HCO3 9 L ABG Base Excess (Actual) -16.9 VBG pH 7.16 L* VBG pCO2 28 VBG pO2 49 VBG HCO3 10 L VBG O2 Saturation 59.0 VBG Base Excess -16.4 Sodium Potassium Chloride Carbon Dioxide Anion Gap BUN Creatinine Estim Creat Clear Calc Estimated GFR Random Glucose Lactic Acid Lactic Acid F/U @ 2Hr 6.4 H* Calcium Phosphorus Magnesium Total Bilirubin Direct Bilirubin AST ALT Alkaline Phosphatase Total Creatine Kinase Troponin I High Sens B-Natriuretic Peptide Total Protein Albumin Urine Color Urine Appearance Urine pH Ur Specific [place] Urine Protein Urine Glucose (UA) Urine Ketones Urine Blood Urine Nitrite Ur Leukocyte Esterase Urine RBC Urine WBC Ur Squamous Epith Cells Urine Bacteria Hyaline Casts Granular Casts 11/09/24 07:58 WBC RBC Hgb Hct MCV MCH MCHC RDW Plt Count MPV Immature Gran % (Auto) Neut % (Auto) Lymph % (Auto) [place] % (Auto) Eos % (Auto) Baso % (Auto) Lymph # (Auto) [place] # (Auto) Eos # (Auto) Baso # (Auto) Abs Immat Gran (auto) Absolute Neuts (auto) Absolute Nucleated RBC Nucleated RBC % (auto) Smear Tech's Comments Smear Path Review PT INR APTT aPTT Heparin Protocol O2 Saturation ABG pH at Pt Temp ABG pCO2 at Pt Temp ABG pO2 at Pt Temp ABG HCO3 ABG Base Excess (Actual) VBG pH VBG pCO2 VBG pO2 VBG HCO3 VBG O2 Saturation VBG Base Excess Sodium 140 Potassium 5.7 H Chloride 110 H Carbon Dioxide 10 L* Anion Gap 26 H BUN 115 H Creatinine 3.42 H Estim Creat Clear Calc 25.2 Estimated GFR 13 Random Glucose 173 H Lactic Acid Lactic Acid F/U @ 2Hr Calcium 8.4 Phosphorus Magnesium Total Bilirubin 2.7 H Direct Bilirubin AST 1621 H ALT 1223 H Alkaline Phosphatase 243 H Total Creatine Kinase Troponin I High Sens B-Natriuretic Peptide Total Protein 6.1 L Albumin 4.0 Urine Color Urine Appearance Urine pH Ur Specific [place] Urine Protein Urine Glucose (UA) Urine Ketones Urine Blood Urine Nitrite Ur Leukocyte Esterase Urine RBC Urine WBC Ur Squamous Epith Cells Urine Bacteria Hyaline Casts Granular Casts ECG Interpretation: EKG shows atrial fibrillation at a rate of 101/Min; cannot exclude old anterior infarct but could be from body habitus. In the prior EKG from August, she was in sinus rhythm. Imaging Radiologist's impression: Impressions Duplex Scan Lower Extremity Artery 11/09/24 08:00 IMPRESSION: 1. Normal right lower extremity peripheral arterial testing with normal velocity measurements, and normal triphasic waveforms. No significant atheromatous plaque present, and no evidence of arterial thrombus present. Electronically signed by: Amandeep House MD 11/09/2024 09:38 AM EDT Assessment and Plan (1) Acute respiratory failure: Status: Acute (2) Acute on chronic combined systolic and diastolic heart failure: Status: Acute (3) NSTEMI (non-ST elevated myocardial infarction): Status: Acute (4) Atrial fibrillation with rapid ventricular response: Status: Acute (5) Acidosis, lactic: Status: Acute (6) Acute renal failure due to rhabdomyolysis: Status: Acute Plan Troponin elevated elevated in the [address]+ range. But remains somewhat flat. CK just around a 1000. Cardiac BNP 4327. Abnormal liver enzymes. Abnormal renal function with creatinine around 3.5. Baseline was much lower. Last echocardiogram with LVEF of 30-35%. In that study prior to that from 2023, she had moderate aortic stenosis. Cardiac catheterization 2023 with normal coronary arteries. Essentially, nonischemic cardiomyopathy, many comorbidities, recurring falls, newly detected atrial fibrillation of unknown duration, acute kidney injury, hyperkalemia, lactic acidosis, sepsis, hypotension, respiratory failure requiring intubation. Repeat echocardiogram. With regard to the atrial fibrillation, IV heparin as above. To decide on ELISABETH cardioversion. But elevated risks because of many comorbidities and being intubated as well. Based on normal coronaries on cardiac catheterization from last year, we will hold off ischemic evaluation at this time. Troponin elevation is most likely demand related in the setting of renal failure. Cannot exclude coronary embolism from atrial fibrillation. Aortic stenosis to be reassessed on the repeat echocardiogram. With regard to other ongoing issues including renal failure, hepatic dysfunction we will need to follow biomarkers serially. Overall, guarded prognosis. We will follow up with you. Total time spent including review of medical records, discussion with athletic equipment custodian, documentation, coordination of care-60 minutes. Procedures Date of Service Date of Service: 11/09/24
--- NOTE | 2024-11-09 09:54 | PHA.MEDREC ---
Pharmacy Consult ? Medication Reconciliation Pharmacy has completed the medication reconciliation. Spoke to patient's son Jatin [phone] via phone to confirm medication list. Per son, patient takes furosemide 10 mg every other day alternating with 20 mg every other day due to the dose of 20 mg daily makes her urinate too often. He does not know what the last taken dose of furosemide was. He confirmed patient takes vitamin D on sundays and that she no longer takes cyclobenzaprine nor lidocaine patches (has stopped using it for about a week). For pain control, patient alternates between ibuprofen 200 mg and acetaminophen 500 mg. Son thinks the last dose of medications was saturday11/06/24 evening.
[2024-11-09 10:53] LABS: Albumin Level 3.9 g/dL (3.5-5.0); Alkaline Phosphatase 237 U/L (39-117); Anion Gap 26 (12-20); Aspartate Amino Transferase 2205 U/L (5-31); Blood Urea Nitrogen 116 mg/dL (9-16); Calcium 8.4 mg/dL (8.4-10.2); Carbon Dioxide 11 mmol/L (22-29); Chloride 109 mmol/L (96-108); Creatinine Clr Calc Pharmacy 24.6; Estimated Glomerular Filt Rate 13; Potassium 6.3 mmol/L (3.3-5.1); Sodium 140 mmol/L (135-145); Total Protein 5.9 g/dL (6.5-8.0)
[2024-11-09 10:54] LABS: ~Lactic Acid-LAB USE ONLY 5.8 mmol/L (0.5-2.0)
--- NOTE | 2024-11-09 11:02 | P.PNCC_ITS ---
Subjective Subjective Date of Service: 11/09/24 Interval History: 68-year-old lady with obesity, CAD, systolic heart failure with EF 30-35%, ischemic cardiomyopathy, AFib, CKD, diabetes mellitus, CVA without residual deficits admitted on 11/08/2024 with acute on chronic renal failure with metabolic acidosis and respiratory distress requiring intubation and ventilatory support and initiation on hemodialysis, further complicated by ischemic hepatitis, hyperkalemia, and AFib with RVR. Critical Care Time (minutes): 60 Physical Exam 2 Vital Signs: Vital Signs: Last Vital Signs Temp 98.8 F 11/09/24 08:00 Pulse 85 11/09/24 10:00 Resp 21 H 11/09/24 10:00 BP 99/61 11/09/24 10:00 Pulse Ox 97 11/09/24 10:00 O2 Del Method Mechanical Ventil ation 11/09/24 10:00 O2 Flow Rate 6 11/09/24 05:00 FiO2 40 11/09/24 10:00 Oxygen Flow Rate 4 11/08/24 23:41 BMI result Body Mass Index 45.6 Const: General: no acute distress and other (Sedated on ventilatory support) Nutritional Appearance: obese Eyes: Sclerae: sclerae normal EOM: EOMs intact bilaterally Neck: Neck: Yes no lymphadenopathy, Yes trachea midline and Yes supple Resp: Auscultation: crackles (Diffuse bilateral) Cardio: Rate: regular rate Rhythm: abnormal rhythm irregularly irregular Heart sounds: no gallops, no murmurs and no rubs GI: Palpation (GI): Soft to palpation and Other GI palpation findings present ( Nontender) Auscultation: normal bowel sounds Extrem: General: No clubbing, No cyanosis and Yes edema (2+ bilateral) Objective Data Labs 11/09/24 03:23 11/09/24 10:19 Labs: Laboratory Results - last 24 hr 11/08/24 11/08/24 11/08/24 19:27 20:43 21:43 WBC 12.3 H RBC 4.54 Hgb 12.4 Hct 38.2 MCV 84.1 MCH 27.3 MCHC 32.5 RDW 16.1 H Plt Count 78 L D MPV 12.4 H Immature Gran % (Auto) 0.2 Neut % (Auto) 89.1 H Lymph % (Auto) 2.4 L [place] % (Auto) 8.2 Eos % (Auto) 0.0 Baso % (Auto) 0.1 Lymph # (Auto) 0.3 L [place] # (Auto) 1.0 Eos # (Auto) 0.0 Baso # (Auto) 0.0 Abs Immat Gran (auto) 0.03 Absolute Neuts (auto) 10.9 H Absolute Nucleated RBC 0.220 H Nucleated RBC % (auto) 1.8 H Smear Tech's Comments VERIFIED Smear Path Review SEE NOTE PT 24.7 H D INR 2.2 H APTT 29.3 aPTT Heparin Protocol O2 Saturation ABG pH at Pt Temp ABG pCO2 at Pt Temp ABG pO2 at Pt Temp ABG HCO3 ABG Base Excess (Actual) VBG pH VBG pCO2 VBG pO2 VBG HCO3 VBG O2 Saturation VBG Base Excess Sodium 139 Potassium 6.8 H* D Chloride 110 H Carbon Dioxide 11 L Anion Gap 25 H BUN 118 H Creatinine 3.64 H Estim Creat Clear Calc 23.6 Estimated GFR 12 Random Glucose 180 H Lactic Acid Lactic Acid F/U @ 2Hr Lactic Acid F/U @ 4Hr Calcium 9.1 Phosphorus Magnesium 2.7 H Total Bilirubin 2.0 H Direct Bilirubin AST 831 H ALT 863 H Alkaline Phosphatase 244 H Total Creatine Kinase 1066 H Troponin I High Sens 73018.1 H* D B-Natriuretic Peptide Total Protein 5.8 L Albumin 3.3 L Urine Color Dark Yellow Urine Appearance Cloudy Urine pH 5.0 Ur Specific [place] 1.020 Urine Protein 100 (2+) H Urine Glucose (UA) Negative Urine Ketones Trace Urine Blood Small (1+) H Urine Nitrite Negative Ur Leukocyte Esterase Small (1+) H Urine RBC 0-2 Urine WBC 0-5 Ur Squamous Epith Cells 6-10 Urine Bacteria 4+ Hyaline Casts >20 Granular Casts Present 11/08/24 11/08/24 11/08/24 22:51 23:35 23:53 WBC RBC Hgb Hct MCV MCH MCHC RDW Plt Count MPV Immature Gran % (Auto) Neut % (Auto) Lymph % (Auto) [place] % (Auto) Eos % (Auto) Baso % (Auto) Lymph # (Auto) [place] # (Auto) Eos # (Auto) Baso # (Auto) Abs Immat Gran (auto) Absolute Neuts (auto) Absolute Nucleated RBC Nucleated RBC % (auto) Smear Tech's Comments Smear Path Review PT INR APTT aPTT Heparin Protocol O2 Saturation ABG pH at Pt Temp ABG pCO2 at Pt Temp ABG pO2 at Pt Temp ABG HCO3 ABG Base Excess (Actual) VBG pH VBG pCO2 VBG pO2 VBG HCO3 VBG O2 Saturation VBG Base Excess Sodium 140 Potassium 6.1 H* Chloride 114 H Carbon Dioxide 9 L* Anion Gap 23 H BUN 117 H Creatinine 3.46 H Estim Creat Clear Calc 24.9 Estimated GFR 13 Random Glucose 128 H Lactic Acid 5.4 H* Lactic Acid F/U @ 2Hr Lactic Acid F/U @ 4Hr Calcium 8.6 Phosphorus Magnesium Total Bilirubin 1.8 H Direct Bilirubin 1.2 H AST 727 H ALT 784 H Alkaline Phosphatase 220 H Total Creatine Kinase Troponin I High Sens 46562.6 H* B-Natriuretic Peptide 4327 H Total Protein 5.5 L Albumin 2.9 L Urine Color Urine Appearance Urine pH Ur Specific [place] Urine Protein Urine Glucose (UA) Urine Ketones Urine Blood Urine Nitrite Ur Leukocyte Esterase Urine RBC Urine WBC Ur Squamous Epith Cells Urine Bacteria Hyaline Casts Granular Casts 11/08/24 11/09/24 11/09/24 23:58 01:24 03:23 WBC 12.5 H RBC 4.19 L Hgb 11.4 L Hct 36.6 L MCV 87.4 MCH 27.2 MCHC 31.1 RDW 16.2 H Plt Count 121 L D MPV 10.9 Immature Gran % (Auto) 0.2 Neut % (Auto) 87.4 H Lymph % (Auto) 3.2 L [place] % (Auto) 9.0 Eos % (Auto) 0.0 Baso % (Auto) 0.2 Lymph # (Auto) 0.4 L [place] # (Auto) 1.1 Eos # (Auto) 0.0 Baso # (Auto) 0.0 Abs Immat Gran (auto) 0.03 Absolute Neuts (auto) 10.9 H Absolute Nucleated RBC 0.330 H Nucleated RBC % (auto) 2.6 H Smear Tech's Comments Smear Path Review PT 29.6 H INR 2.6 H APTT aPTT Heparin Protocol 101.4 H D O2 Saturation ABG pH at Pt Temp ABG pCO2 at Pt Temp ABG pO2 at Pt Temp ABG HCO3 ABG Base Excess (Actual) VBG pH 7.27 L VBG pCO2 22 VBG pO2 70 VBG HCO3 10 L VBG O2 Saturation 91.0 VBG Base Excess -14.1 Sodium 141 Potassium 6.0 H* Chloride 113 H Carbon Dioxide 9 L* Anion Gap 25 H BUN 116 H Creatinine 3.57 H Estim Creat Clear Calc 24.1 Estimated GFR 13 Random Glucose 169 H Lactic Acid 6.6 H* Lactic Acid F/U @ 2Hr 4.7 H* Lactic Acid F/U @ 4Hr Calcium 8.9 Phosphorus 5.0 H Magnesium 2.5 Total Bilirubin 2.3 H Direct Bilirubin 1.7 H AST 775 H ALT 817 H Alkaline Phosphatase 237 H Total Creatine Kinase Troponin I High Sens 90764.3 H* B-Natriuretic Peptide Total Protein 7.0 Albumin 4.6 Urine Color Urine Appearance Urine pH Ur Specific [place] Urine Protein Urine Glucose (UA) Urine Ketones Urine Blood Urine Nitrite Ur Leukocyte Esterase Urine RBC Urine WBC Ur Squamous Epith Cells Urine Bacteria Hyaline Casts Granular Casts 11/09/24 11/09/24 11/09/24 04:22 05:04 06:15 WBC RBC Hgb Hct MCV MCH MCHC RDW Plt Count MPV Immature Gran % (Auto) Neut % (Auto) Lymph % (Auto) [place] % (Auto) Eos % (Auto) Baso % (Auto) Lymph # (Auto) [place] # (Auto) Eos # (Auto) Baso # (Auto) Abs Immat Gran (auto) Absolute Neuts (auto) Absolute Nucleated RBC Nucleated RBC % (auto) Smear Tech's Comments Smear Path Review PT INR APTT aPTT Heparin Protocol O2 Saturation 97.0 ABG pH at Pt Temp 7.19 L* ABG pCO2 at Pt Temp 24 L ABG pO2 at Pt Temp 107 ABG HCO3 9 L ABG Base Excess (Actual) -16.9 VBG pH 7.16 L* VBG pCO2 28 VBG pO2 49 VBG HCO3 10 L VBG O2 Saturation 59.0 VBG Base Excess -16.4 Sodium Potassium Chloride Carbon Dioxide Anion Gap BUN Creatinine Estim Creat Clear Calc Estimated GFR Random Glucose Lactic Acid Lactic Acid F/U @ 2Hr 6.4 H* Lactic Acid F/U @ 4Hr Calcium Phosphorus Magnesium Total Bilirubin Direct Bilirubin AST ALT Alkaline Phosphatase Total Creatine Kinase Troponin I High Sens B-Natriuretic Peptide Total Protein Albumin Urine Color Urine Appearance Urine pH Ur Specific [place] Urine Protein Urine Glucose (UA) Urine Ketones Urine Blood Urine Nitrite Ur Leukocyte Esterase Urine RBC Urine WBC Ur Squamous Epith Cells Urine Bacteria Hyaline Casts Granular Casts 11/09/24 11/09/24 11/09/24 07:58 10:19 10:19 WBC RBC Hgb Hct MCV MCH MCHC RDW Plt Count MPV Immature Gran % (Auto) Neut % (Auto) Lymph % (Auto) [place] % (Auto) Eos % (Auto) Baso % (Auto) Lymph # (Auto) [place] # (Auto) Eos # (Auto) Baso # (Auto) Abs Immat Gran (auto) Absolute Neuts (auto) Absolute Nucleated RBC Nucleated RBC % (auto) Smear Tech's Comments Smear Path Review PT INR APTT aPTT Heparin Protocol O2 Saturation ABG pH at Pt Temp ABG pCO2 at Pt Temp ABG pO2 at Pt Temp ABG HCO3 ABG Base Excess (Actual) VBG pH VBG pCO2 VBG pO2 VBG HCO3 VBG O2 Saturation VBG Base Excess Sodium 140 140 Potassium 5.7 H 6.3 H* Chloride 110 H 109 H Carbon Dioxide 10 L* 11 L Anion Gap 26 H 26 H BUN 115 H 116 H Creatinine 3.42 H 3.51 H Estim Creat Clear Calc 25.2 24.6 Estimated GFR 13 13 Random Glucose 173 H 178 H Lactic Acid Lactic Acid F/U @ 2Hr Lactic Acid F/U @ 4Hr Calcium 8.4 8.4 Phosphorus Magnesium Total Bilirubin 2.7 H 2.7 H Direct Bilirubin AST 1621 H 2205 H ALT 1223 H Alkaline Phosphatase 243 H 237 H Total Creatine Kinase 621 H Cancelled Troponin I High Sens B-Natriuretic Peptide Total Protein 6.1 L 5.9 L Albumin 4.0 3.9 Urine Color Urine Appearance Urine pH Ur Specific [place] Urine Protein Urine Glucose (UA) Urine Ketones Urine Blood Urine Nitrite Ur Leukocyte Esterase Urine RBC Urine WBC Ur Squamous Epith Cells Urine Bacteria Hyaline Casts Granular Casts 11/09/24 10:29 WBC RBC Hgb Hct MCV MCH MCHC RDW Plt Count MPV Immature Gran % (Auto) Neut % (Auto) Lymph % (Auto) [place] % (Auto) Eos % (Auto) Baso % (Auto) Lymph # (Auto) [place] # (Auto) Eos # (Auto) Baso # (Auto) Abs Immat Gran (auto) Absolute Neuts (auto) Absolute Nucleated RBC Nucleated RBC % (auto) Smear Tech's Comments Smear Path Review PT INR APTT aPTT Heparin Protocol O2 Saturation ABG pH at Pt Temp ABG pCO2 at Pt Temp ABG pO2 at Pt Temp ABG HCO3 ABG Base Excess (Actual) VBG pH VBG pCO2 VBG pO2 VBG HCO3 VBG O2 Saturation VBG Base Excess Sodium Potassium Chloride Carbon Dioxide Anion Gap BUN Creatinine Estim Creat Clear Calc Estimated GFR Random Glucose Lactic Acid Lactic Acid F/U @ 2Hr Lactic Acid F/U @ 4Hr 5.8 H* Calcium Phosphorus Magnesium Total Bilirubin Direct Bilirubin AST ALT Alkaline Phosphatase Total Creatine Kinase Troponin I High Sens B-Natriuretic Peptide Total Protein Albumin Urine Color Urine Appearance Urine pH Ur Specific [place] Urine Protein Urine Glucose (UA) Urine Ketones Urine Blood Urine Nitrite Ur Leukocyte Esterase Urine RBC Urine WBC Ur Squamous Epith Cells Urine Bacteria Hyaline Casts Granular Casts Progress Note: A&P Assessment and plan (1) CHF (congestive heart failure): Status: Acute (2) Atrial fibrillation with rapid ventricular response: Status: Acute (3) Diabetes mellitus: Status: Acute (4) Morbid obesity: Status: Acute (5) Acute hyperkalemia: Status: Acute (6) Acute respiratory failure: Status: Acute Plan Assessment: 68-year-old lady with a obesity, CKD, CAD, systolic heart failure admitted with increasing internal adrenal failure with metabolic acidosis, acute on chronic heart failure requiring ventilatory support and dialysis initiation. Plan: Neuro: No acute issues. Cardiac: Likely acute on chronic systolic heart failure. AFib with RVR, continue amiodarone drip. 2D echo is pending. Cardiology evaluation is pending. Underlying CAD. Pulmonary: Acute hypoxic respiratory failure requiring intubation and ventilatory support, continue to titrate off as tolerated. Renal: Acute on chronic kidney disease with oliguria requiring initiation of hemodialysis. Nephrology service care appreciated. Endo: No acute issues. Underlying diabetes mellitus. GI: Ischemic hepatitis likely secondary to poor forward flow. ID: No acute issues Heme/Onc: No acute issues. Psych: No acute issues. Miscellaneous: No acute issues. Prophylaxis: Heparin drip, ppi Diet: NPO Critical care time spent: 60 minutes Quality Stroke Does the patient have a stroke diagnosis?: No VTE Prior VTE?: No VTE Risk Level:: Medical - moderate - high VTE Device Contraindication: N/A - Device Ordered VTE Drug Contraindication: N/A - Med Ordered
[2024-11-09 11:06] LABS: Alanine Aminotransferase 1553 U/L (0-31)
--- NOTE | 2024-11-09 11:13 | MHC.CLN ---
PT IS INTUBATED AND SEDATED DISCUSSED AT ROUNDS WITH MD JACOBSON CLAMPED AT THIS TIME-WILL ADD NPO IF TF NEEDED; RECOMMEND NEPRO AT MAX GOAL RATE 20ML/HR TO PROVIDE 864KCALS (1549KCALS WITH SEDATION; 23KCALS/KG), 39G PROTEIN, 349ML FREE WATER MONITOR TOLERANCE AND LYTES FOLLOWING FOR DIET ADVANCEMENT SEE FULL ASSESSMENT
--- NOTE | 2024-11-09 11:17 | P.CONNP_ITS ---
History of Present Illness Reason for Consult Consult date: 11/09/24 Chief Complaint Chief complaint: Sepsis UTI Acute Rhabdo New Afib RVR History of Present Illness Narrative: 68 y/o female with a medical history of CAD, CHF with EF 30-35% and ischemic cardiomyopathy, atrial fibrillation, morbid obesity, CKD 3, asthma, depression, anxiety, vitamin D deficiency, GERD, hypertension, HLD, diabetes, stroke 1 year ago. 11/08 presented after son found her on the floor in urine, had fallen x3 over previous three days. she was admitted to the ICU for respiratory failure requiring intubation, hypotension requiring vasopressor support, elevated troponins >27K, UA contaminated but presumptive UTI. Nephrology consulted for TUSHAR. patient had a dialysis catheter placed overnight, as serum bicarb was 9 on presentation, only up to 10 this a.m. after bicarb drip started, urine output minimal, pre SHORE MAN at bedside 10-15cc/hr patient is intubated and sedated. Review of Systems Review of Systems Yes unobtainable due to endotracheal tube and Unobtainable due to mental status PMFSH Past Medical History Medical History NSTEMI (non-ST elevated myocardial infarction) Asthma exacerbation Asthma Morbid obesity with BMI of 50.0-59.9, adult Morbid obesity with BMI of 45.0-49.9, adult Depression Panic disorder with agoraphobia Seasonal allergic rhinitis due to pollen Vitamin D deficiency GERD without esophagitis Pure hypercholesterolemia Diabetes mellitus Benign essential hypertension Anxiety Family History Family History Father No problems noted. Mother Stroke Surgical History Surgical History History of total abdominal hysterectomy Social History Social History Household Members: Children Housing: House Do you presently have visiting nurse or other home services: No Alcohol intake: never Patient Tobacco Use Status: Former Tobacco user e-Cigarette/Vaping Use: Never Used Second Hand Smoke Exposure: Yes Use of substances other than those prescribed or required for medical reasons: No Currently Displaying Signs/Symptoms of Drug Intoxication Withdrawal: No Advance Directives: No Advance Directives Information Provided: Yes Advance Directives on File: No Recently lost weight without trying: No Nutrition Risks: No Nutritional Risk Patient : No service: No Current occupational status: retired and disabled Cognitive needs: No Hearing needs: No Vision needs: Yes Meds Allergies Allergy/AdvReac Type Severity Reaction Status Date / Time No Known Allergies Allergy Verified 11/08/24 18:54 Active Medications: Current Medications Aspirin (Aspirin 81 Mg Tab.Chew) 81 mg PO DAILY [facility] Chlorhexidine Gluconate (Chlorhexidine Gluc Oral Rinse 15 Ml Mouthwash) 15 ml BUCCAL TID HERNANDO Last Admin: 11/09/24 08:19 Dose: 15 ml Heparin Sodium (Porcine) (Heparin Sodium,Porcine 5,000 Unit/Ml Vial) 5,800 unit 40 unit/kg (5800 unit) IVPUSH PROTOCOL BOLUS PRN; Protocol PRN Reason: 40 unit/kg - Heparin Protocol Heparin Sodium (Porcine) (Heparin Sodium,Porcine 5,000 Unit/Ml Vial) 10,000 unit IVPUSH PROTOCOL BOLUS PRN; Protocol PRN Reason: 80 unit/kg - Heparin Protocol Heparin Sodium/Sodium Chloride (Heparin Sodium,Porcine/1/2ns) 25,000 unit in 250 mls @ 0 mls/hr IVCONT .Q0M HERNANDO; Protocol Last Titration: 11/09/24 06:17 Dose: 3.93 units/kg/hr, 5.67 mls/hr Amiodarone HCl 900 mg/ Sodium (Chloride) 518 mls @ 34.533 mls/hr IVCONT .Q15H1M HERNANDO; Protocol Last Infusion: 11/09/24 02:37 Dose: Infused Norepinephrine Bitartrate (Levophed) 8 mg in 250 mls @ 0 mls/hr IVCONT .Q0M HERNANDO; Protocol Last Admin: 11/09/24 11:05 Dose: 0.4 mcg/kg/min, 108.15 mls/hr Diltiazem HCl 125 mg/ Sodium (Chloride) 125 mls @ 0 mls/hr IVCONT .Q0M HERNANDO; Protocol Last Titration: 11/09/24 08:30 Dose: 0 mg/hr, 0 mls/hr Vasopressin (Vasostrict) 20 unit in 100 mls @ 12 mls/hr IVCONT .Q8H20M HERNANDO; Protocol Last Admin: 11/09/24 06:19 Dose: Not Given Propofol (Diprivan) 1,000 mg in 100 mls @ 0 mls/hr IVCONT .Q0M [facility]; Protocol Last Admin: 11/09/24 08:25 Dose: 30 mcg/kg/min, 25.96 mls/hr Sodium Bicarbonate 150 meq/ (Dextrose) 1,000 mls @ 150 mls/hr IV .Q6H40M [facility] Last Admin: 11/09/24 09:00 Dose: 150 mls/hr Insulin Human Lispro (Insulin Lispro 100 Unit/Ml 3 Ml Vial) 0 unit SUBCUT Q6H [facility]; Protocol Nystatin (Nystatin Powder 15 Gm Bottle) 1 appl TOPICAL TID [facility]; Protocol Last Admin: 11/09/24 08:20 Dose: 1 appl Pantoprazole Sodium (Pantoprazole Sodium 40 Mg/10 Ml Vial) 40 mg IVPUSH BID@0630,1630 [facility] Last Admin: 11/09/24 06:18 Dose: 40 mg Sodium Chloride (0.9 % Sodium Chloride Flush 3 Ml Syringe) 3 ml IVFLUSH QSHIFT [facility] Last Admin: 11/09/24 07:23 Dose: 3 ml Physical Exam Vital Signs: Last Vital Signs Temp 98.8 F 11/09/24 08:00 Pulse 85 11/09/24 11:05 Resp 21 H 11/09/24 10:00 BP 100/54 L 11/09/24 11:05 Pulse Ox 97 11/09/24 11:13 O2 Del Method Mechanical Ventilation 11/09/24 10:00 O2 Flow Rate 6 11/09/24 05:00 FiO2 30 11/09/24 11:13 Oxygen Flow Rate 4 11/08/24 23:41 BMI result Body Mass Index 45.6 Const General: other (intubated/sedated. ) Resp Other: intubated on VC and 40% fiO2 Auscultation: rhonchi Cardio Palpation: normal PMI Rate: regular rate Rhythm: regular rhythm and abnormal rhythm Skin Other: dusky great toe- RLE Rashes: no rashes Extrem General: No edema Results Lab Results 11/09/24 03:23 11/09/24 10:19 Lab results: Chemistry 11/08/24 11/08/24 11/09/24 19:27 23:35 03:23 Sodium 139 140 141 Potassium 6.8 H* D 6.1 H* 6.0 H* Carbon Dioxide 11 L 9 L* 9 L* BUN 118 H 117 H 116 H Creatinine 3.64 H 3.46 H 3.57 H Calcium 9.1 8.6 8.9 Phosphorus 5.0 H 11/09/24 11/09/24 07:58 10:19 Sodium 140 140 Potassium 5.7 H 6.3 H* Carbon Dioxide 10 L* 11 L BUN 115 H 116 H Creatinine 3.42 H 3.51 H Calcium 8.4 8.4 Phosphorus Hematology 11/08/24 11/09/24 19:27 03:23 WBC 12.3 H 12.5 H Hgb 12.4 11.4 L Plt Count 78 L D 121 L D Urinalysis 11/08/24 21:43 Urine Color Dark Yellow Urine Appearance Cloudy Urine pH 5.0 Ur Specific [place] 1.020 Urine Protein 100 (2+) H Urine Glucose (UA) Negative Urine Ketones Trace Urine Blood Small (1+) H Urine Nitrite Negative Ur Leukocyte Esterase Small (1+) H Urine RBC 0-2 Urine WBC 0-5 Ur Squamous Epith Cells 6-10 Hyaline Casts >20 Assessment and Plan (1) Acute renal failure: Qualifiers: Acute renal failure type: unspecified Qualified Code(s): N17.9 - Acute kidney failure, unspecified Status: Acute Plan TUSHAR likely from cardiorenal syndrome has subsequently developed metformin toxicity leading to lactic acidosis dialysis catheter placed this morning for severe metabolic acidosis and acute renal failure patient to get dialysis today, will plan to check lactic acid levels- may need dialysis again tomorrow pending lactic acid levels continue supportive care. Will continue to follow. Discussed with Dr Browning. Procedures Date of Service Date of Service: 11/09/24
--- NOTE | 2024-11-09 11:18 | MHC.CM.PN ---
Pt is vented and unable to participate in CM assessment: Information obtained from EMR and conversation w/pt's son. Pt resides alone without services. Jatin states pt has had numerous falls within the past week - he has been able to assist pt but had to call EMS at this last fall. Jatin states pt is very weak, deconditioned and failing at home: he is receptive to STR should pt require it. Pt does not have a HCP on file: son states he is proxy but does not have a form to verify. Broad referrals made: will await extubation for formal evaluations and pt completion of HCP IMM in chart, CM to follow
[2024-11-09 11:26] LABS: Glucose, Whole Blood 195 mg/dL (60-115)
[2024-11-09 12:21] LABS: PTT Heparin Drip 50.9 SEC (53-77.9)
--- NOTE | 2024-11-09 12:34 | P.DS_ITS ---
DS: Providers Provider Date of Service: 11/09/24 Date of admission: 11/08/24 23:41 Date of discharge: 11/09/24 Primary care physician: Isai Zaragoza MD Consults: 11/09/24 07:00 Consult to Cardiology Routine Consulting Provider: [facility] Reason for consultation: Non STEMI cardiorenal syndrome CHF Consult to Nephrology Routine Consulting Provider: [facility] Reason for consultation: TUSHAR cardiorenal Has provider been notified: No 11/09/24 07:27 Consult to Wound Care Routine Reason for consultation: Maceration/ Skin fungus DS: Transfer Hospital Acceptance Reason for Transfer: Advanced cardiac support evaluation. Name of Facility: [facility] Accepting Provider: Dr. Kim DS: Diagnosis Discharge Diagnosis (1) Cardiogenic shock: Status: Acute (2) Aortic stenosis: Status: Acute (3) Acute renal failure: Status: Acute (4) Ischemic hepatitis: Status: Acute DS: Summary Hospital Course Hospital Course: 68-year-old lady with obesity, CAD, systolic heart failure with EF 30-35%, ischemic cardiomyopathy, AFib, CKD, diabetes mellitus, CVA without residual deficits admitted on 11/08/2024 with acute on chronic renal failure with metabolic acidosis and respiratory distress requiring intubation and ventilatory support and initiation on hemodialysis, further complicated by ischemic hepatitis, hyperkalemia, and AFib with RVR. 2D echocardiogram with further significantly decreased ejection fraction, estimated to be approximately 10%. Evaluation for advanced cardiac support requested on granted at [facility]. Time Attestation Total time managing care of this patient today: 90 mintues. Discharge Coordination Time (in mins): 30 Quality: Safe Use of Opioids Does Pt have an Active Cancer Diagnosis on the Problem List?: No Quality: Stroke Does the patient have a stroke diagnosis?: No Physical Exam Vital Signs: Vital Signs: Last Vital Signs Temp 97.4 F 11/09/24 12:00 Pulse 76 11/09/24 12:00 Resp 20 11/09/24 12:00 BP 101/52 L 11/09/24 12:00 Pulse Ox 96 11/09/24 12:00 O2 Del Method Mechanical Ventil ation 11/09/24 12:00 O2 Flow Rate 6 11/09/24 05:00 FiO2 40 11/09/24 12:00 Oxygen Flow Rate 4 11/08/24 23:41 BMI result Body Mass Index 45.6 Const: General: no acute distress and other (Sedated on ventilatory support) Nutritional Appearance: obese Eyes: Sclerae: sclerae normal EOM: EOMs intact bilaterally Neck: Neck: Yes no lymphadenopathy, Yes trachea midline and Yes supple Resp: Auscultation: crackles (Diffuse bilateral) Cardio: Rate: regular rate Rhythm: regular rhythm Heart sounds: no gallops, no murmurs and no rubs GI: Palpation (GI): Soft to palpation and Other GI palpation findings present ( Nontender) Auscultation: normal bowel sounds Extrem: General: No clubbing, Yes cyanosis and Yes edema (2+ bilateral) DS: Data Data Completed and Pending Labs on day of discharge: Laboratory Results - last 24 hr 11/08/24 11/08/24 11/08/24 19:27 20:43 21:43 WBC 12.3 H RBC 4.54 Hgb 12.4 Hct 38.2 MCV 84.1 MCH 27.3 MCHC 32.5 RDW 16.1 H Plt Count 78 L D MPV 12.4 H Immature Gran % (Auto) 0.2 Neut % (Auto) 89.1 H Lymph % (Auto) 2.4 L Clare % (Auto) 8.2 Eos % (Auto) 0.0 Baso % (Auto) 0.1 Lymph # (Auto) 0.3 L Clare # (Auto) 1.0 Eos # (Auto) 0.0 Baso # (Auto) 0.0 Abs Immat Gran (auto) 0.03 Absolute Neuts (auto) 10.9 H Absolute Nucleated RBC 0.220 H Nucleated RBC % (auto) 1.8 H Smear Tech's Comments VERIFIED Smear Path Review SEE NOTE PT 24.7 H D INR 2.2 H APTT 29.3 aPTT Heparin Protocol O2 Saturation ABG pH at Pt Temp ABG pCO2 at Pt Temp ABG pO2 at Pt Temp ABG HCO3 ABG Base Excess (Actual) VBG pH VBG pCO2 VBG pO2 VBG HCO3 VBG O2 Saturation VBG Base Excess Sodium 139 Potassium 6.8 H* D Chloride 110 H Carbon Dioxide 11 L Anion Gap 25 H BUN 118 H Creatinine 3.64 H Estim Creat Clear Calc 23.6 Estimated GFR 12 POC Glucose Random Glucose 180 H Lactic Acid Lactic Acid F/U @ 2Hr Lactic Acid F/U @ 4Hr Calcium 9.1 Phosphorus Magnesium 2.7 H Total Bilirubin 2.0 H Direct Bilirubin AST 831 H ALT 863 H Alkaline Phosphatase 244 H Total Creatine Kinase 1066 H Troponin I High Sens 57324.1 H* D B-Natriuretic Peptide Total Protein 5.8 L Albumin 3.3 L Urine Color Dark Yellow Urine Appearance Cloudy Urine pH 5.0 Ur Specific [place] 1.020 Urine Protein 100 (2+) H Urine Glucose (UA) Negative Urine Ketones Trace Urine Blood Small (1+) H Urine Nitrite Negative Ur Leukocyte Esterase Small (1+) H Urine RBC 0-2 Urine WBC 0-5 Ur Squamous Epith Cells 6-10 Urine Bacteria 4+ Hyaline Casts >20 Granular Casts Present 11/08/24 11/08/24 11/08/24 22:51 23:35 23:53 WBC RBC Hgb Hct MCV MCH MCHC RDW Plt Count MPV Immature Gran % (Auto) Neut % (Auto) Lymph % (Auto) Clare % (Auto) Eos % (Auto) Baso % (Auto) Lymph # (Auto) Clare # (Auto) Eos # (Auto) Baso # (Auto) Abs Immat Gran (auto) Absolute Neuts (auto) Absolute Nucleated RBC Nucleated RBC % (auto) Smear Tech's Comments Smear Path Review PT INR APTT aPTT Heparin Protocol O2 Saturation ABG pH at Pt Temp ABG pCO2 at Pt Temp ABG pO2 at Pt Temp ABG HCO3 ABG Base Excess (Actual) VBG pH VBG pCO2 VBG pO2 VBG HCO3 VBG O2 Saturation VBG Base Excess Sodium 140 Potassium 6.1 H* Chloride 114 H Carbon Dioxide 9 L* Anion Gap 23 H BUN 117 H Creatinine 3.46 H Estim Creat Clear Calc 24.9 Estimated GFR 13 POC Glucose Random Glucose 128 H Lactic Acid 5.4 H* Lactic Acid F/U @ 2Hr Lactic Acid F/U @ 4Hr Calcium 8.6 Phosphorus Magnesium Total Bilirubin 1.8 H Direct Bilirubin 1.2 H AST 727 H ALT 784 H Alkaline Phosphatase 220 H Total Creatine Kinase Troponin I High Sens 11150.6 H* B-Natriuretic Peptide 4327 H Total Protein 5.5 L Albumin 2.9 L Urine Color Urine Appearance Urine pH Ur Specific [place] Urine Protein Urine Glucose (UA) Urine Ketones Urine Blood Urine Nitrite Ur Leukocyte Esterase Urine RBC Urine WBC Ur Squamous Epith Cells Urine Bacteria Hyaline Casts Granular Casts 11/08/24 11/09/24 11/09/24 23:58 01:24 03:23 WBC 12.5 H RBC 4.19 L Hgb 11.4 L Hct 36.6 L MCV 87.4 MCH 27.2 MCHC 31.1 RDW 16.2 H Plt Count 121 L D MPV 10.9 Immature Gran % (Auto) 0.2 Neut % (Auto) 87.4 H Lymph % (Auto) 3.2 L Clare % (Auto) 9.0 Eos % (Auto) 0.0 Baso % (Auto) 0.2 Lymph # (Auto) 0.4 L Clare # (Auto) 1.1 Eos # (Auto) 0.0 Baso # (Auto) 0.0 Abs Immat Gran (auto) 0.03 Absolute Neuts (auto) 10.9 H Absolute Nucleated RBC 0.330 H Nucleated RBC % (auto) 2.6 H Smear Tech's Comments Smear Path Review PT 29.6 H INR 2.6 H APTT aPTT Heparin Protocol 101.4 H D O2 Saturation ABG pH at Pt Temp ABG pCO2 at Pt Temp ABG pO2 at Pt Temp ABG HCO3 ABG Base Excess (Actual) VBG pH 7.27 L VBG pCO2 22 VBG pO2 70 VBG HCO3 10 L VBG O2 Saturation 91.0 VBG Base Excess -14.1 Sodium 141 Potassium 6.0 H* Chloride 113 H Carbon Dioxide 9 L* Anion Gap 25 H BUN 116 H Creatinine 3.57 H Estim Creat Clear Calc 24.1 Estimated GFR 13 POC Glucose Random Glucose 169 H Lactic Acid 6.6 H* Lactic Acid F/U @ 2Hr 4.7 H* Lactic Acid F/U @ 4Hr Calcium 8.9 Phosphorus 5.0 H Magnesium 2.5 Total Bilirubin 2.3 H Direct Bilirubin 1.7 H AST 775 H ALT 817 H Alkaline Phosphatase 237 H Total Creatine Kinase Troponin I High Sens 24337.3 H* B-Natriuretic Peptide Total Protein 7.0 Albumin 4.6 Urine Color Urine Appearance Urine pH Ur Specific [place] Urine Protein Urine Glucose (UA) Urine Ketones Urine Blood Urine Nitrite Ur Leukocyte Esterase Urine RBC Urine WBC Ur Squamous Epith Cells Urine Bacteria Hyaline Casts Granular Casts 11/09/24 11/09/24 11/09/24 04:22 05:04 06:15 WBC RBC Hgb Hct MCV MCH MCHC RDW Plt Count MPV Immature Gran % (Auto) Neut % (Auto) Lymph % (Auto) Clare % (Auto) Eos % (Auto) Baso % (Auto) Lymph # (Auto) Clare # (Auto) Eos # (Auto) Baso # (Auto) Abs Immat Gran (auto) Absolute Neuts (auto) Absolute Nucleated RBC Nucleated RBC % (auto) Smear Tech's Comments Smear Path Review PT INR APTT aPTT Heparin Protocol O2 Saturation 97.0 ABG pH at Pt Temp 7.19 L* ABG pCO2 at Pt Temp 24 L ABG pO2 at Pt Temp 107 ABG HCO3 9 L ABG Base Excess (Actual) -16.9 VBG pH 7.16 L* VBG pCO2 28 VBG pO2 49 VBG HCO3 10 L VBG O2 Saturation 59.0 VBG Base Excess -16.4 Sodium Potassium Chloride Carbon Dioxide Anion Gap BUN Creatinine Estim Creat Clear Calc Estimated GFR POC Glucose Random Glucose Lactic Acid Lactic Acid F/U @ 2Hr 6.4 H* Lactic Acid F/U @ 4Hr Calcium Phosphorus Magnesium Total Bilirubin Direct Bilirubin AST ALT Alkaline Phosphatase Total Creatine Kinase Troponin I High Sens B-Natriuretic Peptide Total Protein Albumin Urine Color Urine Appearance Urine pH Ur Specific [place] Urine Protein Urine Glucose (UA) Urine Ketones Urine Blood Urine Nitrite Ur Leukocyte Esterase Urine RBC Urine WBC Ur Squamous Epith Cells Urine Bacteria Hyaline Casts Granular Casts 11/09/24 11/09/24 11/09/24 07:58 10:19 10:19 WBC RBC Hgb Hct MCV MCH MCHC RDW Plt Count MPV Immature Gran % (Auto) Neut % (Auto) Lymph % (Auto) Clare % (Auto) Eos % (Auto) Baso % (Auto) Lymph # (Auto) Clare # (Auto) Eos # (Auto) Baso # (Auto) Abs Immat Gran (auto) Absolute Neuts (auto) Absolute Nucleated RBC Nucleated RBC % (auto) Smear Tech's Comments Smear Path Review PT INR APTT aPTT Heparin Protocol O2 Saturation ABG pH at Pt Temp ABG pCO2 at Pt Temp ABG pO2 at Pt Temp ABG HCO3 ABG Base Excess (Actual) VBG pH VBG pCO2 VBG pO2 VBG HCO3 VBG O2 Saturation VBG Base Excess Sodium 140 140 Potassium 5.7 H 6.3 H* Chloride 110 H 109 H Carbon Dioxide 10 L* 11 L Anion Gap 26 H 26 H BUN 115 H 116 H Creatinine 3.42 H 3.51 H Estim Creat Clear Calc 25.2 24.6 Estimated GFR 13 13 POC Glucose Random Glucose 173 H 178 H Lactic Acid Lactic Acid F/U @ 2Hr Lactic Acid F/U @ 4Hr Calcium 8.4 8.4 Phosphorus Magnesium Total Bilirubin 2.7 H 2.7 H Direct Bilirubin AST 1621 H 2205 H ALT 1223 H 1553 H Alkaline Phosphatase 243 H 237 H Total Creatine Kinase 621 H Cancelled Troponin I High Sens B-Natriuretic Peptide Total Protein 6.1 L 5.9 L Albumin 4.0 3.9 Urine Color Urine Appearance Urine pH Ur Specific [place] Urine Protein Urine Glucose (UA) Urine Ketones Urine Blood Urine Nitrite Ur Leukocyte Esterase Urine RBC Urine WBC Ur Squamous Epith Cells Urine Bacteria Hyaline Casts Granular Casts 11/09/24 11/09/24 11/09/24 10:29 11:21 12:04 WBC RBC Hgb Hct MCV MCH MCHC RDW Plt Count MPV Immature Gran % (Auto) Neut % (Auto) Lymph % (Auto) Clare % (Auto) Eos % (Auto) Baso % (Auto) Lymph # (Auto) Clare # (Auto) Eos # (Auto) Baso # (Auto) Abs Immat Gran (auto) Absolute Neuts (auto) Absolute Nucleated RBC Nucleated RBC % (auto) Smear Tech's Comments Smear Path Review PT INR APTT aPTT Heparin Protocol 50.9 L D O2 Saturation ABG pH at Pt Temp ABG pCO2 at Pt Temp ABG pO2 at Pt Temp ABG HCO3 ABG Base Excess (Actual) VBG pH VBG pCO2 VBG pO2 VBG HCO3 VBG O2 Saturation VBG Base Excess Sodium Potassium Chloride Carbon Dioxide Anion Gap BUN Creatinine Estim Creat Clear Calc Estimated GFR POC Glucose 195 H Random Glucose Lactic Acid Lactic Acid F/U @ 2Hr Lactic Acid F/U @ 4Hr 5.8 H* Calcium Phosphorus Magnesium Total Bilirubin Direct Bilirubin AST ALT Alkaline Phosphatase Total Creatine Kinase Troponin I High Sens B-Natriuretic Peptide Total Protein Albumin Urine Color Urine Appearance Urine pH Ur Specific [place] Urine Protein Urine Glucose (UA) Urine Ketones Urine Blood Urine Nitrite Ur Leukocyte Esterase Urine RBC Urine WBC Ur Squamous Epith Cells Urine Bacteria Hyaline Casts Granular Casts Discharge Plan Discharge Anticipated Discharge Date/Time: 11/09/24 12:44 Patient Disposition: Xfer Acute Care Hospital Discharge Diagnosis: Cardiogenic shock Referrals: Isai Zaragoza MD [Primary Care Provider, Internal Medicine] - 1 Week Discharge Medications: Discontinued escitalopram oxalate 10 mg tablet 10 mg PO DAILY 90 Days Qty: 90 1RF aspirin 81 mg tablet,chewable 1 tab PO DAILY Qty: 90 3RF magnesium oxide 400 mg (241.3 mg magnesium) tablet 400 mg PO TID Qty: 270 1RF atorvastatin 80 mg tablet 80 mg PO DAILY Qty: 90 1RF potassium chloride [Klor-Con M20] 20 mEq tablet,ER particles/crystals 20 meq PO BID Qty: 180 1RF albuterol sulfate 90 mcg/actuation HFA aerosol inhaler 2 puff inhalation Q4-6H PRN (Reason: for dyspnea) Qty: 8.5 3RF clonazepam 0.5 mg tablet 0.5 mg PO TID PRN (Reason: anxiety) 30 Days Qty: 90 0RF metformin 1,000 mg tablet 1,000 mg PO BID Qty: 60 1RF bupropion HCl 100 mg tablet sustained-release 12 hr 100 mg PO BID Qty: 60 0RF ergocalciferol (vitamin D2) 1,250 mcg (50,000 unit) capsule 1,250 mcg PO GARDNER@0900 (DME) walker [facility] [place] See Rx Instructions .Route Qty: 1 0RF Rx Instructions: As directed omeprazole 20 mg capsule,delayed release(DR/EC) 20 mg PO DAILY@0630 furosemide 20 mg tablet 20 mg PO Q48H furosemide 20 mg Tablet 10 mg PO Q48H acetaminophen 500 mg Tablet 500 mg PO BID PRN (Reason: Pain) ibuprofen 200 mg Tablet 200 mg PO BID PRN (Reason: Pain) multivitamin Tablet 1 tab PO DAILY (DME) blood-glucose meter [FreeStyle Lite Meter] Kit See Rx Instructions .ROUTE .MEDSUPPLY Qty: 1 0RF Rx Instructions: As directed (DME) FreeStyle Lite Strips Strip See Rx Instructions .ROUTE .MEDSUPPLY Qty: 100 12RF Rx Instructions: As directed once a day (DME) lancets [FreeStyle Lancets] 28 gauge misc See Rx Instructions .ROUTE .MEDSUPPLY Qty: 100 12RF Rx Instructions: As directed lisinopril 2.5 mg tablet 2.5 mg PO DAILY Qty: 30 5RF Discharge Orders: Discharge Order (Routine); Ordered 11/09/24 Ordered By: Brett Virgen Activity on Discharge: Bedrest Stand Alone Forms: Patient Portal Discharge page Print Language: [place] Islander Care Plan Goals: Evaluation for advanced cardiac support Health Concerns: Cardiogenic shock Plan of Treatment: Evaluation for advanced cardiac support Assessment: Cardiogenic shock with resultant acute respiratory failure, metabolic acidosis, renal failure, and ischemic hepatitis.
--- NOTE | 2024-11-09 17:15 | PC.NURSE ---
Assumed care at 0700- Pt. mechanically vented and sedated with propofol per JUN. +C/G/P, PERRL, GARCIA weakly. Pt. Afib on tele, rate controlled, cardizem gtt weaned off per JUN. Norepinephrine gtt titrated per JUN. BLE mottled, R>L, unable to obtain pulses with doppler on B/L MINI MC aware. LE US performed- see report. Heparin gtt continues and titrated per protocol. Resistor Testing Machine Operator at bedside for echo- see report. Pt. on ACVC 20/400/5/30%, tolerating well. No in-line secretions. OGT clamped, pt. NPO. Mello in place, urine output 0-15cc/hr- MD aware. HD performed, complete at approx. 1545, 3.6 L removed per dialysis nurse. Pt. [place] [facility] room assignment [facility] Room 5. Report given to Receiving RN via telephone at approx 1500. [facility] [place] care transport at bedside at 1700. Pt transported off unit by EMS @1755.
--- NOTE | 2024-11-30 15:25 | P.CDIM_ITS ---
PROVIDER RESPONSE TEXT: To clarify, the appropriate diagnosis supported by the clinical indicators: Other (explain): Cardiogenic shock QUERY TEXT: PHYSICIAN'S DOCUMENTATION REQUEST Date of Query: 11/26/2024 07:05 AM EDT Patient Name: Estrella Albright Admit Date: 11/09/2024 Dear Brett Virgen MD, A review of the medical record indicates additional documentation may be needed. Please review below and update the documentation accordingly. Clinical Indicators: troponin 56048.1, 19793.6 per ED note 11/08/24: elevated troponin likely from demand ischemia no acute dynamic EKG changes were seen per Guardian Ad Litem, heart rate elevated, patient denied chest pain, thought to be a primary ischemic event, severe cardiomyopathy with probable severe aortic stenosis Atrial fibrillation RVR, rate 120s-130s, Per H&P: Acute NSTEMI vs troponin leak IV Cardizem, IV Heparin drip due to possible NSTEMI Locations: - Anterior wall - Inferior wall Onset: - Within the past 4 weeks - Greater than 4 weeks ago - Subsequent (defined as new FL within 4 weeks of previous FL) - Old or healed FL with no current concerns or complications Vessel Involved: - Left main coronary artery - Left anterior descending coronary artery - Right coronary artery - Left circumflex coronary artery Please clarify the type of the documented myocardial infarction: NSTEMI present on admission After study, NSTEMI was ruled out Other (explain) Clinically unable to determine (explain) Thank you, Isabelle Ceron RN Use of terms such as suspected, likely, concern for, or probable (associated with a specific diagnosis that is being evaluated, monitored, or treated as if it exists) are acceptable and can be coded in the inpatient setting, when documented at the time of discharge. Please use your independent medical judgment in providing your response. THIS QUERY IS PART OF THE PERMANENT MEDICAL RECORD
--- NOTE | 2024-11-30 15:25 | P.CDIM_ITS ---
PROVIDER RESPONSE TEXT: To clarify, the appropriate diagnosis supported by the clinical indicators: After study, Sepsis/Septic shock has been ruled out QUERY TEXT: PHYSICIAN'S DOCUMENTATION REQUEST Date of Query: 11/26/2024 06:51 AM EDT Patient Name: Estrella Albright Admit Date: 11/09/2024 Dear Brett Virgen MD, A review of the medical record indicates additional documentation may be needed. Please review below and update the documentation accordingly. Documentation on progress note dated 11/08/24 included the diagnosis of Acute septic shock. The patient's infectious clinical indicators include: pulse 112 respiratory rate 24 WBC 12.3 LA 5.4 IV Rocephin started for urinary tract infection even though the urine sample appears contaminated became hypotensive requiring higher dose of Levophed Sepsis Systemic manifestations of infection, with 2 or more SIRS criteria which include: Fever > 100.4?F or hypothermia < 96.8?F Leukocytosis - WBC > 12,000 or leukopenia, WBC < 4,000, or > 10% bands Tachycardia- > 90 beats/minute Tachypnea- RR > 20 breaths/minute or PaCO2 < 32mmHg Source: [employer] Manual 2013 Documentation should include the known or suspected organism, and the underlying infection, such as UTI or pneumonia Severe Sepsis Sepsis with associated acute organ dysfunction, such as renal or respiratory failure Documentation should indicate the association between the sepsis and the organ dysfunction Septic Shock Severe sepsis with associated with circulatory failure, evidenced by hypotension and hypoperfusion Based on the above information and the recognized standard for sepsis, could you please clarify if this diagnoses is still accurate and reflective of the patient's condition to ensure quality of the medical record. Sepsis/Septic shock is/was present on admission and is a clinical diagnosis After study, Sepsis/Septic shock has been ruled out Other (explain) Clinically unable to determine (explain) Thank you, Isabelle Ceron RN Use of terms such as suspected, likely, concern for, or probable (associated with a specific diagnosis that is being evaluated, monitored, or treated as if it exists) are acceptable and can be coded in the inpatient setting, when documented at the time of discharge. Please use your independent medical judgment in providing your response. THIS QUERY IS PART OF THE PERMANENT MEDICAL RECORD
== END 2024-11-09 17:55 | disposition short-term general hospital (02) | DRG 682 ==
LOC: HO.ED 19:40 → HO.EDOVER 23:48 → HO.ICU 11-09 00:15
PROVIDERS: Admitting Provider Physician Assistant Medical; Emergency Provider Internal Medicine; PCP Internal Medicine; Visit Provider Internal Medicine Pulmonary Disease
DX: N17.9 Acute kidney failure, unspecified (principal); I50.33 Acute on chronic diastolic (congestive) heart failure; R57.0 Cardiogenic shock; J96.01 Acute respiratory failure with hypoxia; K72.00 Acute and subacute hepatic failure without coma; Z68.42 Body mass index [BMI] 45.0-49.9, adult; M62.82 Rhabdomyolysis; E87.21 Acute metabolic acidosis; I13.0 Hypertensive heart and chronic kidney disease with heart failure and stage 1 through stage 4 chronic kidney disease, or unspecified chronic kidney disease; I42.8 Other cardiomyopathies; E66.01 Morbid (severe) obesity due to excess calories; E11.42 Type 2 diabetes mellitus with diabetic polyneuropathy; I25.5 Ischemic cardiomyopathy; E87.5 Hyperkalemia; D69.59 Other secondary thrombocytopenia; I35.0 Nonrheumatic aortic (valve) stenosis; T38.3X5A Adverse effect of insulin and oral hypoglycemic [antidiabetic] drugs, initial encounter; R29.6 Repeated falls; I48.91 Unspecified atrial fibrillation; I25.10 Atherosclerotic heart disease of native coronary artery without angina pectoris; N18.9 Chronic kidney disease, unspecified; E11.22 Type 2 diabetes mellitus with diabetic chronic kidney disease; Z87.891 Personal history of nicotine dependence; Z79.84 Long term (current) use of oral hypoglycemic drugs; Z79.899 Other long term (current) drug therapy
CPT/HCPCS: 36415; 36600; 70450; 71045; 71250; 72125; 74176; 80053; 81001; 82248; 82550; 82803; 82947; 83605; 83735; 83880; 84100; 84484; 85025; 85610; 85730; 87040; 87086; 90999; 93005; 93306; 93926; 94002; 99285; J0282; J0283; J0613; J0696; J1163; J1644; J1939; J2250; J2470; J2704; P9047; Q9957

== ENCOUNTER → 2024-11-08 18:38 | Outpatient (BNV) | payer MEDICARE, MEDICAID, SELFPAY | PROVIDERS: Emergency Provider Internal Medicine; PCP Internal Medicine; Visit Provider Radiology Neuroradiology | DX: R29.6 Repeated falls (principal); R91.8 Other nonspecific abnormal finding of lung field | CPT/HCPCS: 70450; 71045; 72125 ==

== ENCOUNTER 2024-11-08 23:41 | Outpatient (BNV) | payer MEDICARE, MEDICAID, SELFPAY | END 2024-11-09 00:40 | PROVIDERS: Admitting Provider Physician Assistant Medical; Emergency Provider Internal Medicine; PCP Internal Medicine; Visit Provider Radiology Neuroradiology | DX: R09.89 Other specified symptoms and signs involving the circulatory and respiratory systems (principal) | CPT/HCPCS: 93926 ==

== ENCOUNTER → 2024-11-08 23:41 | Outpatient (BNV) | payer MEDICARE, MEDICAID, SELFPAY | PROVIDERS: Admitting Provider Physician Assistant Medical; Emergency Provider Internal Medicine; PCP Internal Medicine; Visit Provider Nurse Practitioner Family | DX: N17.9 Acute kidney failure, unspecified (principal) | CPT/HCPCS: 99222 ==

== ENCOUNTER → 2024-11-08 23:41 | Outpatient (BNV) | payer MEDICARE, MEDICAID, SELFPAY | PROVIDERS: Admitting Provider Physician Assistant Medical; Emergency Provider Internal Medicine; PCP Internal Medicine; Visit Provider Physician Assistant Medical | DX: A41.9 Sepsis, unspecified organism (principal); R65.21 Severe sepsis with septic shock; N18.30 Chronic kidney disease, stage 3 unspecified | CPT/HCPCS: 31500; 36558; 36581; 76937; 99291; 99292 ==

== ENCOUNTER → 2024-11-08 23:41 | Outpatient (BNV) | payer MEDICARE, MEDICAID, SELFPAY | PROVIDERS: Admitting Provider Physician Assistant Medical; Emergency Provider Internal Medicine; PCP Internal Medicine; Visit Provider Internal Medicine Pulmonary Disease | DX: I50.9 Heart failure, unspecified (principal); I48.91 Unspecified atrial fibrillation; E11.9 Type 2 diabetes mellitus without complications; E66.01 Morbid (severe) obesity due to excess calories; E87.5 Hyperkalemia; J96.00 Acute respiratory failure, unspecified whether with hypoxia or hypercapnia; R57.0 Cardiogenic shock; I35.0 Nonrheumatic aortic (valve) stenosis; N17.9 Acute kidney failure, unspecified; K72.00 Acute and subacute hepatic failure without coma | CPT/HCPCS: 99239; 99499 ==

== ENCOUNTER → 2024-11-08 23:41 | Outpatient (BNV) | payer MEDICARE, MEDICAID, SELFPAY | PROVIDERS: Admitting Provider Physician Assistant Medical; Emergency Provider Internal Medicine; PCP Internal Medicine; Visit Provider Internal Medicine | DX: J96.00 Acute respiratory failure, unspecified whether with hypoxia or hypercapnia (principal); I50.43 Acute on chronic combined systolic (congestive) and diastolic (congestive) heart failure; I21.4 Non-ST elevation (NSTEMI) myocardial infarction; I48.91 Unspecified atrial fibrillation; E87.20 Acidosis, unspecified; N17.9 Acute kidney failure, unspecified; M62.82 Rhabdomyolysis | CPT/HCPCS: 93010; 99233 ==